=== PATIENT | male | born 1940 | race Hispanic/Latino ===

== ENCOUNTER 2018-08-25 09:57 | Inpatient (IN) | payer MEDICARE ==
[2018-08-25] VITALS (19 sets, daily range): BP systolic 97–117; BP diastolic 65–78
[~2018-08-25] VITALS: Ht 167.6 cm; Wt 90.3 kg
[2018-08-25 11:12] LABS: BASOPHILS % 0.2 % (0.0-1.0); EOSINOPHILS # (AUTO) 0.1 (0.0-0.4); EOSINOPHILS % 0.6 % (0.0-6.0); HEMATOCRIT 43.9 % (38.2-49.6); HEMOGLOBIN 15.1 g/dL (14.0-18.0); LYMPHOCYTES # (AUTO) 1.5 (1.0-3.2); LYMPHOCYTES % 14.3 % (18.0-39.1); MEAN CORPUSCULAR HGB CONC 34.4 g/dL (31-35); MEAN CORPUSCULAR VOLUME 90.1 fL (81-99); MONOCYTES # (AUTO) 0.9 (0.2-0.8); MONOCYTES % 9.3 % (4.4-11.3); NEUTROPHILS # (AUTO) 7.6 (2.1-6.9); NEUTROPHILS % 74.9 % (38.7-80.0); PLATELET COUNT 220 x10e3/uL (140-360); RED BLOOD COUNT 4.87 x10e6/uL (4.3-5.7); RED CELL DISTRIBUTION WIDTH 12.9 % (11.7-14.4)
--- NOTE | 2018-08-25 11:18 | Diagnostic Imaging Report ---
EXAMINATION: CHEST 2 VIEWS INDICATION: Hypoxia COMPARISON: None FINDINGS: TUBES and LINES: None. LUNGS: Patchy opacity is present in the left lower lobe and projecting over the lower spine on the lateral view. Right lung is clear. No evidence of pulmonary edema. PLEURA: No pleural effusion or pneumothorax. Slight nonspecific elevation of the right hemidiaphragm. HEART AND MEDIASTINUM: The cardiomediastinal silhouette is unremarkable. BONES AND SOFT TISSUES: No acute osseous lesion. Soft tissues are unremarkable. UPPER ABDOMEN: No free air under the diaphragm. IMPRESSION: Patchy opacity in the left lower lobe which could represent pneumonia or atelectasis in the appropriate clinical setting. Follow-up chest radiograph suggested in 6-8 weeks to assess for resolution. Signed by: Dr. Jorgito Smiht MD on 08/25/2018 11:15 AM
[2018-08-25 11:28] LABS: ALANINE AMINOTRANSFERASE 13 IU/L (0-55); ALBUMIN 3.9 g/dL (3.5-5.0); ALBUMIN/GLOBULIN RATIO 1.1 (0.8-2.0); ALKALINE PHOSPHATASE 93 IU/L (40-150); ANION GAP 13.3 mmol/L (8-16); BLOOD UREA NITROGEN 15 mg/dL (7-26); BUN/CREATININE RATIO 19 (6-25); CALCIUM 9.9 mg/dL (8.4-10.2); CARBON DIOXIDE 40 mmol/L (22-29); CHLORIDE 77 mmol/L (98-107); CREATININE, SERUM 0.78 mg/dL (0.72-1.25); EST GLOMERULAR FILTRATION RATE > 60 ML/MIN (60-); GLUCOSE 148 mg/dL (74-118); POTASSIUM 3.3 mmol/L (3.5-5.1); SODIUM 127 mmol/L (136-145)
[2018-08-25] MEDS ORDERED: ASPIRIN 81 MG CHEW TAB PO ONE (12:00)
[2018-08-25] MEDS ORDERED: AZITHROMYCIN 500MG/SOD CHL 0.9% 250ML BAG IV SCH (12:00)
--- OUTSIDE RECORDS SUMMARY | 2018-08-25 12:33 | XMS REPORT ---
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 Allergies, Adverse Reactions, Alerts This patient has no known allergies or adverse reactions. Medications This patient has no known medications. Results Test Description Test Time Test Comments Text Results Atomic Results Result Comments CHEST 2 VIEWS 2018-08-25 11:09:00 [facility] [address] [address] Patient Name: EITAN GLYNN MR #: [id number] : 1940 Age/Sex: 77/M Req #: [id number] Adm Physician: Ordered by: TIARA RANKIN MD Report #: [id number] Location: ER Room/Bed: Procedure: [id number] DX/CHEST 2 VIEWS Exam Date: Exam Time: REPORT STATUS: Signed EXAMINATION: CHEST 2 VIEWS INDICATION: Hypoxia COMPARISON: None FINDINGS: TUBES and LINES: None. LUNGS: Patchy opacity is present in the left lower lobe and projecting over the lower spine on the lateral view. Right lung is clear. No evidence of pulmonary edema. PLEURA: No pleural effusion or pneumothorax. Slight nonspecific elevation of the right hemidiaphragm. HEART AND MEDIASTINUM: The cardiomediastinal silhouette is unremarkable. BONES AND SOFT TISSUES: No acute osseous lesion. Soft tissues are unremarkable. UPPER ABDOMEN: No free air under the diaphragm. IMPRESSION: Patchy opacity in the left lower lobe which could represent pneumonia or atelectasis in the appropriate clinical setting. Follow-up chest radiograph suggested in 6-8 weeks to assess for resolution. Signed by: Dr. Genny Ray MD on 08/25/2018 11:15 AM Dictated By: GENNY RAY MD 1115 Transcribed By: MITZY on 08/25/18 1115 COPY TO: TIARA RANKIN MD
[2018-08-25] MEDS ORDERED: POTASSIUM CHLORIDE 20 MEQ TAB CR PO ONE (12:45)
[2018-08-25] MEDS: AZITHROMYCIN 500MG/NS 250 ML 250 ML IV SCH (13:10)
[2018-08-25] MEDS: CEFTRIAXONE SOD 1 GM VIAL IV SCH (13:10)
[2018-08-25 13:16] LABS: BILIRUBIN,URINE NEGATIVE (NEGATIVE); CLARITY,URINE CLEAR (CLEAR); COLOR,URINE YELLOW (YELLOW); KETONES,URINE NEGATIVE (NEGATIVE); LEUKOCYTE ESTERASE ,URINE NEGATIVE (NEGATIVE); NITRITE,URINE NEGATIVE (NEGATIVE); PROTEIN,URINE DIPSTICK 2+ (NEGATIVE); URINE UROBILINOGEN 1 mg/dL (0.2 - 1)
[2018-08-25 13:23] LABS: BACTERIA,URINE FEW /HPF; EPITHELIAL CELLS,URINE MODERATE /LPF; WBC,URINE (MAN) 0-5 /HPF (0-5)
[2018-08-25 13:24] LABS: MUCUS,URINE MODERATE (RARE)
[2018-08-25 13:45] LABS: CREATINE KINASE MB 1.5 ng/mL (0-5.0)
[2018-08-25] MEDS ORDERED: LISINOPRIL20 MG PO (13:52)
[2018-08-25] MEDS ORDERED: FINASTERIDE5 MG PO (13:52)
[2018-08-25] MEDS ORDERED: ATENOLOL-CHLOR1 EACH PO (13:52)
[2018-08-25] MEDS ORDERED: CRESTOR10 MG PO (13:52)
[2018-08-25] MEDS ORDERED: ALPRAZOLAM2 MG PO (13:52)
[2018-08-25] MEDS ORDERED: LEVOTHYROXINE150 MCG PO (13:52)
--- NOTE | 2018-08-25 13:59 | History and Physical ---
REFERRING PHYSICIAN: Dr. Solomon. HISTORY OF PRESENT ILLNESS: Patient is a 77-year-old man. He has a history of hypertension and thyroid problems. He also has a history of red irritated eyes intermittently over the years. Approximately 3 weeks ago, he went to see Dr. Kimball of ophthalmology. Both eyes were inflamed. Dr. Kimball noted an abrasion in the left eye, but no abrasion or foreign body on the right. He prescribed some drops, which did not help. The patient also reports some cough and congestion. His cough was productive of small amounts of phlegm. He is unsure if he had dyspnea. He occasionally has some chest pain. X-ray in the emergency department showed a small left lower lobe infiltrate suggestive of pneumonia. PAST MEDICAL HISTORY 1. Thyroid disease. 2. Hypertension. PAST SURGICAL HISTORY: Noncontributory. SOCIAL HISTORY: The patient is not a smoker or drinker. He sees Dr. Solomon as an outpatient. ALLERGIES: NO KNOWN DRUG ALLERGIES. REVIEW OF SYSTEMS: He has no fevers. He has no headache. He does have eye redness and discharge. He has no sore throat. There are no swollen glands. He does have some congestion and productive cough. He has occasional chest pain with inspiration. He has no abdominal pain. There is no nausea or vomiting. He does not have any leg swelling or pain. He denies any focal neurological problems. He denies any skin problems. PHYSICAL EXAMINATION GENERAL: The patient is afebrile. VITAL SIGNS: Stable. HEENT: Shows no increased swelling or erythema. The nasal mucosa is normal. The oropharynx is normal. LYMPHATIC: Shows no submandibular, cervical, or supraclavicular adenopathy. CARDIAC: Regular rate and rhythm with normal S1 and S2. RESPIRATORY: Auscultation of lungs reveals some rhonchi on the left side. ABDOMEN: Soft, nontender. There is no rebound or guarding. EXTREMITIES: Shows no leg edema or calf tenderness. There is no cyanosis or clubbing. SKIN: Shows no rashes. NEUROLOGIC: Shows no focal abnormalities. RADIOGRAPHIC DATA: Shows a left lower lobe infiltrate. IMPRESSION 1. Community-acquired left lower lobe pneumonia. 2. Bilateral conjunctivitis that is not responding to treatment. 3. Elevated prostate-specific antigen. 4. Thyroid disease. 5. Hypertension. PLAN 1. The patient will be done observed in the hospital with IV antibiotics. 2. Swallowing evaluation. 3. Ophthalmology consultation. 4. Continue current medications for blood pressure and thyroid disease. Job#: [id number] VAS
[2018-08-25] MEDS ORDERED: ETOMIDATE 2 MG/ML 10 ML INJ IV STA (14:31)
[2018-08-25] MEDS ORDERED: SUCCINYLCHOLINE CHLORIDE 20 MG/ML 10ML VIAL IV STA (14:31)
[2018-08-25] MEDS: MIDAZOLAM HCL 25 MG in SODIUM CHLORIDE 0.9% 50ML 45 ML IV PRN ×2 (14:49→23:04)
[2018-08-25] MEDS ORDERED: VANCOMYCIN 1GM/NS 250 ML 250 ML IV ONE (15:00)
[2018-08-25] MEDS ORDERED: FENTANYL CITRATE INJ 2,000 MCG in SODIUM CHLORIDE 0.9% 250ML 210 ML IV PRN (15:00)
[2018-08-25] MEDS ORDERED: SODIUM CHLORIDE 0.9% 1000ML 2,000 ML ONE (15:13)
[2018-08-25] MEDS ORDERED: SODIUM CHLORIDE 0.9% 1000ML 1,000 ML IV STA ×2 (15:20→15:30)
[2018-08-25 15:25] LABS: ABG HCO3 42 mmol/L (23-28); ABG PCO2 53 mmHg (41-51); ABG PO2 498 mmHg (80-105)
[2018-08-25] MEDS ORDERED: NOREPINEPHRINE 8 MG/D5W 250 ML 250 ML ONE (16:34)
[2018-08-25] MEDS ORDERED: HYDROCORTISONE SOD SUCCINATE 100 MG VIAL IV NR (16:43)
[2018-08-25] MEDS ORDERED: NOREPINEPHRINE INJ 4MG/4ML 8 MG in DEXTROSE 5% 250ML 250 ML IV SCH (16:45)
[2018-08-25] MEDS ORDERED: MIDAZOLAM HCL 2 MG/2 ML VIAL ONE (17:37)
[2018-08-25] MEDS ORDERED: SUCCINYLCHOLINE CHLORIDE 20 MG/ML 10ML VIAL ONE (17:37)
[2018-08-25] MEDS ORDERED: ETOMIDATE 2 MG/ML 10 ML INJ IV ONE (17:37)
[2018-08-25 17:41] LABS: FREE T4 (FREE THYROXINE) 1.13 ng/dL (0.9-1.8); THYROID STIMULATING HORMONE 1.821 uIU/mL (0.350-4.940)
--- NOTE | 2018-08-25 18:17 | Diagnostic Imaging Report ---
EXAM: CT Chest WITH contrast 08/25/2018 2:52 PM INDICATION: Pneumonia. Rule out PE. Sepsis. ^r/o PE COMPARISON: Chest radiograph 08/25/2018 TECHNIQUE: Chest was scanned utilizing a multidetector helical scanner from the lung apex through the level of the adrenal glands without administration of IV contrast. Coronal and sagittal reformations were obtained. PE protocol was performed. IV CONTRAST: 100 mL of Isovue-370 COMPLICATIONS: None RADIATION DOSE: Total DLP: 1372.7 mGy*cm Estimated effective dose: (DLP x 0.014 x size factor) mSv CTDIvol has been reviewed. It is below the limits set by the Radiation Protocol Committee (RPC). Dose modulation, iterative reconstruction, and/or weight based adjustment of the mA/kV was utilized to reduce the radiation dose to as low as reasonably achievable. FINDINGS: LINES/ TUBES: Endotracheal tube tip 3.1 cm above the carter. Nasogastric/orogastric tube tip in the gastric body. Right IJ venous catheter tip in the lower SVC with subcutaneous soft tissue stranding/hematoma at the insertion site. LUNGS AND AIRWAYS: No pulmonary embolus to the level of the segmental pulmonary arteries. Right upper lobe 3 mm calcified granuloma (series 3 image 60). Left lower lobe opacities likely representing atelectasis. Secretions within the trachea. PLEURA: The pleural spaces are clear. HEART AND MEDIASTINUM: The thyroid gland is normal. No mediastinal, hilar or axillary lymphadenopathy. The heart is normal in size.. There is no pericardial effusion. Diffuse 3 vessel coronary artery calcifications. Main pulmonary artery measures 2.9 cm. Ascending aorta measures 3.5 cm. UPPER ABDOMEN: Please see same-day CT abdomen and pelvis. BONES: There are degenerative changes in the thoracic spine. SOFT TISSUES: Right chest wall 3 cm sebaceous cyst. IMPRESSION: No evidence of pulmonary embolism to the segmental pulmonary arteries. Previously noted left lower lobe opacity likely represents atelectasis. Signed by: DR. Severino Steward MD on 08/25/2018 6:14 PM
--- NOTE | 2018-08-25 18:32 | Diagnostic Imaging Report ---
EXAM: CT Abdomen and Pelvis WITH contrast INDICATION: PE, pneumonia, sepsis. ^SEPSIS ^Y COMPARISON: None. TECHNIQUE: Abdomen and pelvis were scanned utilizing a multidetector helical scanner from the lung base to the pubic symphysis after administration of IV contrast. Coronal and sagittal reformations were obtained. Routine protocol was performed. Scan was performed during portal venous phase. IV CONTRAST: 100 mL of Isovue-370 ORAL CONTRAST: Water COMPLICATIONS: None RADIATION DOSE: Total DLP: 1372.7 mGy*cm Estimated effective dose: (DLP x 0.015 x size factor) mSv CTDIvol has been reviewed. It is below the limits set by the Radiation Protocol Committee (RPC). Dose modulation, iterative reconstruction, and/or weight based adjustment of the mA/kV was utilized to reduce the radiation dose to as low as reasonably achievable. FINDINGS: LINES and TUBES: Nasogastric/orogastric tube tip in the gastric body. Ramirez catheter within the collapsed bladder. LOWER THORAX: Please see same-day chest CT. HEPATOBILIARY: Punctate 0.4 and 0.5 cm hyperattenuating foci in segment VII (series 5 image 23). No biliary ductal dilation. GALLBLADDER: Cholelithiasis. No wall thickening. SPLEEN: No splenomegaly. PANCREAS: No focal masses or ductal dilatation. ADRENALS: No adrenal nodules KIDNEYS/URETERS: Multifocal scarring in both kidneys. Kidneys enhance symmetrically. No hydronephrosis. Heterogeneously hyperattenuating 3.2 cm mass in the superior pole of the right kidney. Additional low attenuating lesions, some of which likely represent cysts, others of which are indeterminant. No stones. GI TRACT: No abnormal distention, wall thickening, or evidence of bowel obstruction. High attenuation within the stomach may be related to ingested contents. There are diverticula within the colon without evidence of diverticulitis. Appendix is normal. PELVIC ORGANS/BLADDER: Prostate is enlarged measuring 5.6 cm in transverse dimension. Collapsed bladder, limiting evaluation. LYMPH NODES: No lymphadenopathy. Prominent but subcentimeter 0.7 cm retrocaval node. VESSELS: There is moderate atherosclerotic disease in the aorta and major arterial branches. PERITONEUM / RETROPERITONEUM: No free air or fluid. BONES: There are degenerative changes in the lumbar spine. Hemangioma in the T11 vertebral body. SOFT TISSUES: Fat-containing inguinal hernias. IMPRESSION: 1. No acute abnormalities in the abdomen and pelvis. 2. Right renal 3.2 cm mass compatible with renal cell carcinoma until proven otherwise. 3. Additional low attenuating lesions kidneys may represent hemorrhagic or proteinaceous cysts but are indeterminate. 4. Hyperattenuating lesions in the liver may represent flash filling hemangiomas but are indeterminate in the setting of a hypervascular primary tumor such as renal cell carcinoma. 5. Recommend further evaluation with nonemergent abdominal MRI without and with contrast. Signed by: DR. Severino Steward MD on 08/25/2018 6:29 PM
[2018-08-25] MEDS: SODIUM CHLORIDE 0.9% 1000ML 1,000 ML IV SCH (18:54)
[2018-08-25 19:27] LABS: CREATINE KINASE MB 3.7 ng/mL (0-5.0)
[2018-08-25] MEDS ORDERED: IOPAMIDOL 370 MG/ML 200 ML INFUS..BTL INJ ONE (22:31)
[2018-08-25] MEDS ORDERED: SODIUM CHLORIDE 0.9% 50ML 50 ML ONE (22:31)
[2018-08-25] MEDS: HYDROCORTISONE SOD SUCCINATE 100 MG VIAL IV SCH (22:57)
[2018-08-26] VITALS (63 sets, daily range): BP systolic 91–156; BP diastolic 55–77
[2018-08-26] MEDS: SODIUM CHLORIDE 0.9% 1000ML 1,000 ML IV SCH (04:38)
[2018-08-26 04:59] LABS: CREATINE KINASE MB 1.4 ng/mL (0-5.0)
[2018-08-26] MEDS: HYDROCORTISONE SOD SUCCINATE 100 MG VIAL IV SCH ×3 (06:07→21:59)
[2018-08-26 07:35] LABS: BASOPHILS % 0.1 % (0.0-1.0); HEMATOCRIT 36.9 % (38.2-49.6); HEMOGLOBIN 13.3 g/dL (14.0-18.0); LYMPHOCYTES # (AUTO) 1.2 (1.0-3.2); LYMPHOCYTES % 7.9 % (18.0-39.1); MEAN CORPUSCULAR HEMOGLOBIN 31.3 pg (28-32); MEAN CORPUSCULAR VOLUME 86.8 fL (81-99); MONOCYTES # (AUTO) 1.2 (0.2-0.8); MONOCYTES % 7.8 % (4.4-11.3); NEUTROPHILS # (AUTO) 12.5 (2.1-6.9); NEUTROPHILS % 83.3 % (38.7-80.0); PLATELET COUNT 237 x10e3/uL (140-360); RED BLOOD COUNT 4.25 x10e6/uL (4.3-5.7); RED CELL DISTRIBUTION WIDTH 12.8 % (11.7-14.4)
[2018-08-26 07:38] LABS: ALANINE AMINOTRANSFERASE 13 IU/L (0-55); ALBUMIN 2.9 g/dL (3.5-5.0); ALBUMIN/GLOBULIN RATIO 1.2 (0.8-2.0); ALKALINE PHOSPHATASE 70 IU/L (40-150); ANION GAP 20.9 mmol/L (8-16); BLOOD UREA NITROGEN 14 mg/dL (7-26); BUN/CREATININE RATIO 20 (6-25); CALCIUM 8.6 mg/dL (8.4-10.2); CARBON DIOXIDE 23 mmol/L (22-29); CHLORIDE 93 mmol/L (98-107); CREATININE, SERUM 0.69 mg/dL (0.72-1.25); EST GLOMERULAR FILTRATION RATE > 60 ML/MIN (60-); GLUCOSE 181 mg/dL (74-118); SODIUM 134 mmol/L (136-145)
[2018-08-26 07:40] LABS: POTASSIUM 2.9 mmol/L (3.5-5.1)
[2018-08-26] MEDS ORDERED: POTASSIUM CHLORIDE 20MEQ/100ML 100 ML IV ONE (09:00)
[2018-08-26 09:29] LABS: ABG PH 7.36 (7.31-7.41)
[2018-08-26 09:30] LABS: ABG HCO3 30 mmol/L (23-28); ABG PCO2 54 mmHg (41-51); ABG PO2 106 mmHg (80-105)
[2018-08-26] MEDS: CEFTRIAXONE SOD 1 GM VIAL IV SCH (12:34)
[2018-08-26] MEDS: AZITHROMYCIN 500MG/NS 250 ML 250 ML IV SCH (12:34)
--- NOTE | 2018-08-26 13:31 | Progress Note ---
DATE: August 26, 2018 PULMONARY/CRITICAL CARE PROGRESS NOTE SUBJECTIVE: The patient became suddenly hypotensive in the emergency department yesterday. The emergency department physician intubated the patient and placed a central line. He did not respond to 2 liters of fluid and required Levophed. He was subsequently given hydrocortisone and his blood pressure dramatically improved, raising a concern for adrenal insufficiency. A subsequent CT scan of the abdomen and pelvis showed a 3.2 cm mass in the right kidney compatible with renal cell carcinoma. He also had some hypoattenuating lesions in the liver. Patient was placed on a spontaneous breathing trial this morning and is tolerating pressure support and CPAP well. The tidal volumes of 400 to 450 mL with respiratory rate of 12 or 13. PHYSICAL EXAMINATION VITAL SIGNS: The blood pressures are 140/72 and patient is afebrile. The pulse is 67. Respiratory rate is 18. HEENT: Shows no facial swelling or erythema. The oropharynx is normal. There is an oral endotracheal tube in place. There is a right IJ line. The site looks clean. CARDIAC: Reveals regular rate and rhythm with normal S1 and S2. There are no murmurs or rubs. RESPIRATORY: Auscultation of the lungs reveals decreased breath sounds at the base. There is no wheezing. ABDOMEN: Soft and nontender. There is no rebound or guarding. EXTREMITIES: Show no leg edema or calf tenderness. There is no cyanosis or clubbing. NEUROLOGICAL: Shows no focal abnormalities. LABORATORY DATA: The sodium is 134 and the potassium is 2.9. The BUN to creatinine ratio is 14/0.7. The total bilirubin has increased to 2.4. The albumin is 2.9. The white blood cell count is 15 and hemoglobin is 13.3. The platelet count is 237. IMPRESSION 1. Community-acquired pneumonia. 2. Hypotension, possibly secondary to adrenal insufficiency. 3. Metabolic alkalosis. 4. Hyponatremia. 5. Hypokalemia. 6. A 3.2 cm renal mass consistent with renal cell carcinoma. 7. Liver abnormalities on CT scan of unclear etiology. 8. Elevated total bilirubin. PLAN 1. Proceed with extubation. 2. Continue hydrocortisone q.8; an endocrinology evaluation is pending to rule out adrenal insufficiency. 3. Urology consultation and oncology consultation for the renal mass. 4. Continue current antibiotics. 5. We will correct sodium and potassium. 6. Check coagulation parameters. 7. Case discussed with nursing, respiratory and family. 8. Greater than 35 minutes in direct critical care time. Job#: [id number] MAJ CHAPMAN
[2018-08-26 14:16] LABS: FREE T4 (FREE THYROXINE) 1.13 ng/dL (0.9-1.8); THYROID STIMULATING HORMONE 0.755 uIU/mL (0.350-4.940)
--- NOTE | 2018-08-26 22:33 | Consultation ---
DATE OF CONSULTATION: August 25, 2018 ENDOCRINE CONSULTATION Patient of Dr. Viramontes. Thank you very much for referring this patient. HISTORY OF PRESENT ILLNESS: This is a 77-year-old gentleman who is referred to me for evaluation of hypotension and possible hypocortisolism. Patient came to the hospital with history of hypotension. He was seen in the emergency room. His blood pressure was low. He was intubated, put on the pressors and the IV hydrocortisone. His blood pressure did improve with that. Subsequently, his CT scan showed a 3.7 cm renal mass and is being evaluated for renal cell cancer. His other medical problems include history of hypothyroidism. He has also some obstructive pulmonary disease and possible pneumonia. Patient has history of hypothyroidism. He has also a history of conjunctivitis. There is no history of the pituitary tumor in the past. PHYSICAL EXAMINATION GENERAL: The patient is alert, awake. VITAL SIGNS: His heart rate is around 70, blood pressure presently is 120/70 mmHg. HEENT: Essentially unremarkable. Thyroid is palpable. Clinically he looks near euthyroid. CHEST: Bilateral vesicular breathing. He has got bilateral bronchospasm and basilar rales. CARDIOVASCULAR: First and 2nd heart sounds. There is no 3rd or 4th heart sound. Ejection sound grade 2/6. CLINICAL IMPRESSION 1. Rule out hypocortisolism. 2. Hypotension and significant improvement after giving hydrocortisone. 3. Renal cell mass, rule out renal cell cancer. 4. Obstructive pulmonary disease. 5. Pneumonia. PLAN: The plan at this time is to do a serum ACTH, cut down the IV hydrocortisone, and we will also plan do a Cortrosyn test on follow. Thanks for referring this patient. I will be following this patient with you. Job#: [id number] HOWIE
--- NOTE | 2018-08-26 23:29 | Consultation ---
DATE OF CONSULTATION: August 26, 2018 REQUESTING PHYSICIAN: Dr. Sudheer Viramontes SERVICE: Hematology/oncology. REASON FOR CONSULTATION: Evaluation and management of the patient with renal mass. HISTORY OF PRESENTING ILLNESS: Mr. Liu is a 77-year-old gentleman with known history of hypertension and thyroid disease who is presented to the emergency department due to cough and congestion. He underwent workup revealing left lower lobe pneumonia. He was intubated due to respiratory failure. He underwent workup including CT of the abdomen and pelvis revealing right-sided 3.2 cm mass in the kidney compatible with renal cell carcinoma. CT also demonstrated hyperattenuating lesion in the liver suspicious of feeling hemangioma versus hypervascular primary renal cell carcinoma. Hematology-oncology has been consulted to assist with management. Presently, patient is lying comfortably, not in acute distress. He has been extubated. He is alert, awake, and able to recall events. PAST MEDICAL HISTORY 1. Thyroid disease. 2. Hypertension. PAST SURGICAL HISTORY: Questionable history of renal mass biopsy. SOCIAL HISTORY: The patient is not a smoker or drinker. No illicit drug use. ALLERGIES: NO KNOWN DRUG ALLERGIES. CURRENT MEDICATIONS: Reviewed and as per electronic medical record. REVIEW OF SYSTEMS: A 14-point review of systems negative except as mentioned in history of presenting illness as well as fatigue and tiredness. PHYSICAL EXAMINATION VITAL SIGNS: Reviewed and as per electronic medical record. HEENT: PERRLA. Intact eye movement. Head atraumatic, normocephalic. NECK: Supple. CVS: S1, S2 audible. RESPIRATORY: Decreased bilateral air entry. ABDOMEN: Soft. Positive bowel sounds. EXTREMITIES: Negative edema. NEURO: Patient is alert, awake. LABORATORY DATA: White blood cell count of 15.0, hemoglobin 13.3, hematocrit 36.9, platelets 237. BUN 14, creatinine 0.6. ASSESSMENT AND PLAN: Mr. Liu is a very pleasant 77-year-old gentleman with known history of hypertension and thyroid disorder, admitted through emergency department due to left lower lobe pneumonia leading to respiratory insufficiency, subsequently required ICU admission. He underwent workup including CT scan of the abdomen and pelvis revealing 3.2 cm right renal mass suspicious for renal cell carcinoma, subsequently hematology-oncology has been consulted. I have reviewed the record and discussed in length with the patient about his current disease status and importance of further workup. Overall, mass appeared to be malignant. Patient also has lesion in the liver which appeared to be more of hemangioma, though metastatic disease cannot be ruled out completely. Upon further questioning, patient stated that he has had this lesion for some time and has had biopsy in the past which was negative. Patient appeared to be alert and awake, though I am not sure how much history is reliable. I will discuss the case with his who may know further detail about history of no renal mass. Due to liver lesion, I think outpatient workup will be warranted, specifically the PET/CT scan of the body. Urology consultation will be recommended. Thank you, Dr. Viramontes, for the consult. I will continue to be available. Please call with questions. Job#: [id number] VAS
[2018-08-27] VITALS (78 sets, daily range): BP systolic 51–190; BP diastolic 37–132
[2018-08-27 04:40] LABS: BASOPHILS % 0.1 % (0.0-1.0); HEMATOCRIT 37.2 % (38.2-49.6); HEMOGLOBIN 12.8 g/dL (14.0-18.0); LYMPHOCYTES # (AUTO) 0.8 (1.0-3.2); LYMPHOCYTES % 7.5 % (18.0-39.1); MEAN CORPUSCULAR HEMOGLOBIN 31.2 pg (28-32); MEAN CORPUSCULAR HGB CONC 34.4 g/dL (31-35); MEAN CORPUSCULAR VOLUME 90.7 fL (81-99); NEUTROPHILS # (AUTO) 9.3 (2.1-6.9); NEUTROPHILS % 82.9 % (38.7-80.0); PLATELET COUNT 162 x10e3/uL (140-360); RED CELL DISTRIBUTION WIDTH 13.2 % (11.7-14.4)
[2018-08-27 04:52] LABS: INR 0.94; PARTIAL THROMBOPLASTIN TIME 30.3 seconds (23.8-35.5); PROTHROMBIN TIME 13.4 seconds (11.9-14.5)
[2018-08-27 05:04] LABS: ALANINE AMINOTRANSFERASE 11 IU/L (0-55); ALBUMIN 2.8 g/dL (3.5-5.0); ALKALINE PHOSPHATASE 62 IU/L (40-150); BLOOD UREA NITROGEN 16 mg/dL (7-26); BUN/CREATININE RATIO 22 (6-25); CALCIUM 8.7 mg/dL (8.4-10.2); CARBON DIOXIDE 32 mmol/L (22-29); CHLORIDE 95 mmol/L (98-107); CREATININE, SERUM 0.73 mg/dL (0.72-1.25); EST GLOMERULAR FILTRATION RATE > 60 ML/MIN (60-); GLUCOSE 134 mg/dL (74-118); SODIUM 137 mmol/L (136-145)
[2018-08-27] MEDS: HYDROCORTISONE SOD SUCCINATE 100 MG VIAL IV SCH ×3 (05:30→21:47)
[2018-08-27] MEDS ORDERED: POTASSIUM CHLORIDE 20 MEQ TAB CR PO STA (07:35)
[2018-08-27] MEDS: LEVOTHYROXINE SODIUM 75 MCG TAB PO SCH (08:24)
[2018-08-27] MEDS: CHLORTHALIDONE 25 MG TAB PO SCH (08:25)
[2018-08-27] MEDS: ATENOLOL 100 MG TAB PO SCH ×2 (08:25→16:28)
[2018-08-27] MEDS: FINASTERIDE 5 MG TAB PO SCH (08:26)
[2018-08-27] MEDS: LISINOPRIL 20 MG TAB PO SCH (08:26)
[2018-08-27] MEDS: SIMVASTATIN 40 MG TAB PO SCH (08:26)
[2018-08-27] MEDS ORDERED: NON-FORMULARY MEDICATION (Atenolol/Chlorthalidone (Atenolol-Chlorthalidone 100-25) 1 TAB) PO SCH (09:00)
[2018-08-27] MEDS ORDERED: NON-FORMULARY MEDICATION (Levothyroxine Sodium 150 MCG) PO SCH (09:00)
--- NOTE | 2018-08-27 09:34 | Consultation ---
DATE OF CONSULTATION: August 27, 2018 CONSULTATION CALLED BY: Dr. Viramontes. CHIEF UROLOGIC COMPLAINT/REASON FOR CONSULTATION: Renal mass. HISTORY OF PRESENT ILLNESS: Jose Liu is a very pleasant 77-year-old male patient of mine who has seen both myself and Dr. Ackerman in the past. The patient has a long history of elevated PSA and renal mass. Currently denied dysuria. Denied hematuria. Denied any difficulty urinating. PAST MEDICAL HISTORY: Hypertension, hyperthyroidism, renal mass status post biopsy. MEDICATIONS: Please see MAR. ALLERGIES: VANCOMYCIN, INFLUENZA VACCINE, PENICILLIN. SOCIAL HISTORY: Positive smoker. FAMILY HISTORY: Denied urologic stones or malignancies. REVIEW OF SYSTEMS: Noncontributory other than problems as mentioned above for 12 organ systems. PHYSICAL EXAMINATION GENERAL: Elderly male in no acute distress. VITALS: Temperature 97.1, pulse 67, respirations 18, blood pressure 140/72. HEENT: Sclerae are anicteric. NECK: Supple. BACK: Without costovertebral tenderness bilaterally. ABDOMEN: Soft and nontender. Nondistended. No palpable masses. No palpable hernias. No palpable inguinal lymphadenopathy. : Normal male external genitalia. EXTREMITIES: No edema. Moves all 4 extremities. PSYCH: Mood is appropriate. SKIN: Intact. Normal color. PERTINENT LABORATORY DATA: CT scan revealing gallstones of right upper pole 3.2 cm size, multiple renal cysts. BPH 5.6 cm in diameter. Multifocal liver masses. Sodium 134, potassium 3.9, chloride 53, bicarb 23. BUN 14, creatinine 0.69. Glucose 181. Hemoglobin 13, hematocrit 36, platelet count 237,000, white cell count 15,000. Urinalysis 0 to 5 whites, 2+ protein. IMPRESSION 1. Proteinuria. 2. Hypokalemia. 3. Leukocytosis. 4. Renal cysts. 5. Renal mass. 6. Benign prostatic hypertrophy. 7. Elevated PSA. PLAN: The patient has renal mass for quite some time. He has been following, on surveillance. We will obtain detailed office records for exact pathology, and previous biopsy. He has seen both myself and Dr. Ackerman in the past and was happy to see me in the room. We will follow along with you. Job#: [id number] LEWIS: cc:DR. MAMTA Ortiz DR. GARCIA
[2018-08-27] MEDS: AZITHROMYCIN 500MG/NS 250 ML 250 ML IV SCH (13:43)
[2018-08-27] MEDS: CEFTRIAXONE SOD 1 GM VIAL IV SCH (13:43)
[2018-08-27] MEDS ORDERED: SODIUM CHLORIDE 0.9% 1000ML 1,000 ML ONE (14:43)
[2018-08-27] MEDS: PROPOFOL IV EMULSION 10MG/ML 100 ML IV PRN ×2 (14:45→21:11)
[2018-08-27] MEDS ORDERED: PROPOFOL IV EMULSION 10MG/ML 100 ML ONE (14:58)
--- NOTE | 2018-08-27 16:29 | Diagnostic Imaging Report ---
EXAMINATION: CHEST SINGLE (PORTABLE) INDICATION: Intubation. Pneumonia. COMPARISON: CT abdomen and pelvis 08/25/2018. Chest x-ray 08/25/2018. FINDINGS: AP view TUBES and LINES: Interval placement of endotracheal tube. The tip is not well visualized. The assumed tip is 8.1 cm above the carter. Right IJ central line with tip in mid SVC. LUNGS: Lungs are well inflated. There are bibasilar atelectasis and/or consolidation. Mild central pulmonary venous congestion. PLEURA: New small left pleural effusion. HEART AND MEDIASTINUM: The cardiomediastinal silhouette is unremarkable. BONES AND SOFT TISSUES: No acute osseous lesion. Soft tissues are unremarkable. UPPER ABDOMEN: No free air under the diaphragm. IMPRESSION: 1. Suboptimal x-ray. 2. Tip of the endotracheal tube is not well seen secondary to positioning and x-ray penetration. The presumed tip is 8.0 cm above the carter. 3. New small left pleural effusion. 4. New bibasilar atelectasis/consolidations. Signed by: Dr. Tam Ortez M.D. on 08/27/2018 4:26 PM
[2018-08-27 17:27] LABS: ABG HCO3 30 mmol/L (23-28); ABG PCO2 36 mmHg (41-51); ABG PH 7.54 (7.31-7.41); ABG PO2 74 mmHg (80-105)
--- NOTE | 2018-08-27 17:44 | Diagnostic Imaging Report ---
History: Rapid response Comparison studies:None Technique: Axial images were obtained from the skull base to the vertex with and without. Coronal and sagittal images reconstructed from the axial data. Intravenous contrast: Yes Dose modulation, iterative reconstruction, and/or weight based adjustment of the mA/kV was utilized to reduce the radiation dose to as low as reasonably achievable. Findings: Scalp/skull: No abnormalities. Extra-axial spaces: No masses. No fluid collections. Brain sulci: Mildly prominent. Ventricles: Mild compensatory dilatation. No hydrocephalus. Parenchyma: Scattered small hypodensities in the supratentorial white matter are small vessel ischemic changes. No masses, hemorrhage, acute or chronic cortical vascular insults. No abnormal enhancement Sellar/suprasellar region: No abnormalities. Craniocervical junction: Patent foramen magnum. No Chiari one malformation. Incidental findings: Atherosclerotic calcifications in the carotid siphons, basilar and vertebral arteries . Dolichoectasia of the basilar artery Impression: No acute abnormalities. Chronic findings: 1. Mild generalized volume loss. 2. Mild supratentorial white matter small vessel ischemic changes. 3. 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 Signed by: DR Dwain Jang M.D. on 08/27/2018 5:40 PM
[2018-08-27] MEDS ORDERED: SODIUM CHLORIDE 0.9% 50ML 50 ML ONE (17:50)
[2018-08-27] MEDS ORDERED: IOPAMIDOL 370 MG/ML 200 ML INFUS..BTL INJ ONE (17:50)
--- NOTE | 2018-08-27 17:50 | Diagnostic Imaging Report ---
EXAMINATION: CHEST SINGLE (PORTABLE) INDICATION: ^ETT advancement COMPARISON: None FINDINGS: AP view TUBES and LINES: The tip of the endotracheal tube is 4.1 cm above the carter. Right IJ central line with tip at mid to lower SVC. LUNGS: Lungs are moderately inflated. There are bibasilar atelectasis and/or consolidation. Mild central pulmonary venous congestion. PLEURA: Small left pleural effusion. HEART AND MEDIASTINUM: The cardiomediastinal silhouette is unremarkable. BONES AND SOFT TISSUES: No acute osseous lesion. Soft tissues are unremarkable. UPPER ABDOMEN: No free air under the diaphragm. IMPRESSION: Tip of the endotracheal tube is 4.1 cm above the carter. Signed by: Dr. Tam Ortez M.D. on 08/27/2018 5:47 PM
[2018-08-27] MEDS ORDERED: DEXMEDETOMIDINE HCL 200 MCG in SODIUM CHLORIDE 0.9% 50ML 48 ML IV PRN (18:00)
--- NOTE | 2018-08-27 19:48 | Progress Note ---
DATE: August 27, 2018 PULMONARY/CRITICAL CARE PROGRESS NOTE SUBJECTIVE: Rounded this morning around 8 a.m.. The patient was awake, alert, and feeling better. The staff was making arrangements to move him out of the intensive care unit. At approximately 02:30, the nurse went in and noticed he was diaphoretic and desaturating. Rapid response was called. He was reintubated and received a liter of intravenous fluids. OBJECTIVE VITAL SIGNS: The patient is now afebrile. He is normotensive again after receiving the liter of fluids. GENERAL: He is on the assist control mode of ventilation. He has a right IJ line in place. This site looks clean. CARDIAC: Reveals regular rate and rhythm with a normal S1 and S2. There are no murmurs or rubs. LUNGS: Auscultation of the lungs reveals clear breath sounds bilaterally. There is no wheezing. ABDOMEN: Soft and nontender. There is no rebound or guarding. EXTREMITIES: Shows no leg edema or calf tenderness. There is no cyanosis or clubbing. IMPRESSION 1. Respiratory failure requiring emergent intubation. 2. Renal cell carcinoma. 3. Pneumonia. 4. Possible adrenal insufficiency. 5. Benign prostatic hypertrophy. 6. Hypothyroidism. 7. Hypertension. PLAN 1. The patient will be continued on an assist control mode of ventilation. Patient will go for a CT scan of the head with and without contrast. 2. Repeat ABG. 3. Continue current antibiotics. 4. Continue endocrinology workup. 5. Evaluation for renal cell carcinoma is still in progress. 6. Greater than 35 minutes in direct critical care time during 2 separate visits. 7. Case discussed with nursing, respiratory, and ER doctor. Job#: [id number] LAKEISHA CHAPMAN
[2018-08-28] VITALS (113 sets, daily range): BP systolic 51–191; BP diastolic 39–89
[2018-08-28] MEDS: PROPOFOL IV EMULSION 10MG/ML 100 ML IV PRN ×2 (03:17→23:11)
[2018-08-28 04:04] LABS: BASOPHILS % 0.1 % (0.0-1.0); HEMOGLOBIN 14.3 g/dL (14.0-18.0); LYMPHOCYTES # (AUTO) 1.2 (1.0-3.2); LYMPHOCYTES % 7.2 % (18.0-39.1); MEAN CORPUSCULAR HEMOGLOBIN 31.3 pg (28-32); MEAN CORPUSCULAR VOLUME 91.9 fL (81-99); MONOCYTES # (AUTO) 1.9 (0.2-0.8); MONOCYTES % 12.2 % (4.4-11.3); NEUTROPHILS # (AUTO) 12.7 (2.1-6.9); NEUTROPHILS % 79.9 % (38.7-80.0); PLATELET COUNT 155 x10e3/uL (140-360); RED BLOOD COUNT 4.57 x10e6/uL (4.3-5.7); RED CELL DISTRIBUTION WIDTH 13.2 % (11.7-14.4)
[2018-08-28 04:28] LABS: ALANINE AMINOTRANSFERASE 46 IU/L (0-55); ALBUMIN 2.9 g/dL (3.5-5.0); ALBUMIN/GLOBULIN RATIO 1.1 (0.8-2.0); ALKALINE PHOSPHATASE 68 IU/L (40-150); BLOOD UREA NITROGEN 20 mg/dL (7-26); BUN/CREATININE RATIO 19 (6-25); CALCIUM 8.9 mg/dL (8.4-10.2); CARBON DIOXIDE 26 mmol/L (22-29); CHLORIDE 99 mmol/L (98-107); CREATININE, SERUM 1.06 mg/dL (0.72-1.25); EST GLOMERULAR FILTRATION RATE > 60 ML/MIN (60-); GLUCOSE 133 mg/dL (74-118); SODIUM 140 mmol/L (136-145)
[2018-08-28] MEDS: HYDROCORTISONE SOD SUCCINATE 100 MG VIAL IV SCH ×2 (05:36→20:57)
[2018-08-28] MEDS: LEVOTHYROXINE SODIUM 75 MCG TAB PO SCH (05:36)
--- NOTE | 2018-08-28 06:47 | Diagnostic Imaging Report ---
EXAMINATION: CHEST SINGLE (PORTABLE) INDICATION: Intubation COMPARISON: 08/27/2018 FINDINGS: TUBES and LINES: Endotracheal tube and right IJ central line catheter are in stable LUNGS: Lungs are not well inflated. Persistent left lower lobe atelectasis the right lung is clear. PLEURA: Small left pleural effusion is suspected HEART AND MEDIASTINUM: The cardiomediastinal silhouette is unremarkable. BONES AND SOFT TISSUES: No acute osseous lesion. Soft tissues are unremarkable. UPPER ABDOMEN: No free air under the diaphragm. IMPRESSION: 1. Stable chest with evidence of left lower lobe airspace disease and pleural effusion. 2. Endotracheal and right IJ central line catheter are stable Signed by: Dr. Gibran Castillo M.D. on 08/28/2018 6:43 AM
[2018-08-28] MEDS: ATENOLOL 100 MG TAB PO SCH ×2 (09:00→17:00)
[2018-08-28] MEDS: LISINOPRIL 20 MG TAB PO SCH (09:00)
[2018-08-28] MEDS: CHLORTHALIDONE 25 MG TAB PO SCH (09:00)
[2018-08-28] MEDS: FINASTERIDE 5 MG TAB PO SCH (09:00)
[2018-08-28] MEDS: SIMVASTATIN 40 MG TAB PO SCH (09:00)
[2018-08-28 10:45] LABS: ABG HCO3 31 mmol/L (23-28); ABG PCO2 41 mmHg (41-51); ABG PH 7.49 (7.31-7.41); ABG PO2 109 mmHg (80-105)
[2018-08-28] MEDS ORDERED: LORAZEPAM INJ 2 MG/ML VIAL IV NR (11:45)
[2018-08-28] MEDS: CEFTRIAXONE SOD 1 GM VIAL IV SCH (11:59)
[2018-08-28] MEDS: AZITHROMYCIN 500MG/NS 250 ML 250 ML IV SCH (11:59)
[2018-08-28] MEDS ORDERED: NOREPINEPHRINE 8 MG/D5W 250 ML 250 ML ONE (12:41)
[2018-08-28] MEDS ORDERED: SODIUM CHLORIDE 0.9% 1000ML 1,000 ML ONE (12:41)
[2018-08-28] MEDS ORDERED: NOREPINEPHRINE INJ 4MG/4ML 8 MG in DEXTROSE 5% 250ML 250 ML IV PRN (12:45)
[2018-08-28] MEDS: SODIUM CHLORIDE 0.9% 1000ML 1,000 ML IV SCH ×2 (12:45→22:07)
[2018-08-28] MEDS: PANTOPRAZOLE 40 MG 10ML VIAL IV SCH (12:45)
[2018-08-28] MEDS ORDERED: SODIUM CHLORIDE 0.9% 500ML 500 ML ONE (13:30)
[2018-08-28] MEDS ORDERED: LIDOCAINE HCL 1% LOCAL INJ 20 ML VIAL ONE (13:30)
[2018-08-28] MEDS ORDERED: IOPAMIDOL 300MG/ML 50ML INFUS..BTL IV ONE (13:45)
--- NOTE | 2018-08-28 14:28 | Diagnostic Imaging Report ---
PROCEDURE:ULTRASOUND GUIDANCE FOR PROCEDURE INDICATIONS:Urinary retention COMPARISON:[facility], CT, CT ABDOMEN/PELVIS W, 08/25/2018, 17:26. MEDICATION: Lidocaine 1% EBL: Less than 5 cc FINDINGS: Informed consent was obtained. Ultrasound was used to identify the location of the distended urinary bladder. Bladder measures 17 x 7.7 x 11.5 cm. Estimated volume is 787 cc. Puncture of the bladder with an 18 gauge needle was accomplished with ultrasound guidance. CONCLUSION:Ultrasound guidance for placement of a suprapubic urinary bladder catheter. Soham Hurley D.O. Dictated by: Soham Hurley D.O. on 08/28/2018 at 14:36 Electronically approved by: Soham Hurley D.O. on 08/28/2018 at 14:36
[2018-08-28] MEDS ORDERED: POTASSIUM CHLORIDE 20MEQ/100ML 100 ML IV ONE (15:30)
[2018-08-28] MEDS ORDERED: SODIUM CHLORIDE 0.9% 1000ML 500 ML IV ONE (15:30)
--- NOTE | 2018-08-28 18:31 | Diagnostic Imaging Report ---
EXAM: Abdomen 1 Views INDICATION: ^NGT placement COMPARISON: None FINDINGS: Suboptimal examination. NG/OG tube is faintly seen but the tip appears to overlying the lower esophagus. The remaining abdomen is nondiagnostic. IMPRESSION: Possible NG/OG tube tip overlying the lower esophagus. Recommend repeat KUB. Signed by: Dr. May Ram M.D. on 08/28/2018 6:28 PM
--- NOTE | 2018-08-28 19:43 | Diagnostic Imaging Report ---
EXAM: ABDOMEN-1VIEW (KUB) DATE: 08/28/2018 7:12 PM Time stamp on exam: 1925 hours INDICATION: Tube advancement COMPARISON: 08/28/2018 at 1721 hours FINDINGS: LINES/TUBES: NG tube is again visualized with tip within the esophagus not visualized on examination. There is a loop of NG tube which is noted within the stomach. Repositioning is recommended. BOWEL PATTERN: No evidence for obstruction. SOFT TISSUES: Contrast is visualized in the renal parenchyma and bilateral renal collecting systems LUNG BASES: Not included BONES: No acute findings. IMPRESSION: 1. NG tube remains in the gastroesophageal junction with tip above the films limits most likely in the esophagus. A loop of NG tube is in the stomach fundus. Repositioning is recommended Signed by: Dr. Gibran Castillo M.D. on 08/28/2018 7:40 PM
[2018-08-29] VITALS (50 sets, daily range): BP systolic 87–153; BP diastolic 49–107
--- NOTE | 2018-08-29 00:08 | Diagnostic Imaging Report ---
EXAM: ABDOMEN-1VIEW (KUB) DATE: 08/28/2018 11:38 PM Time stamp on exam: 2355 hours INDICATION: NG tube repositioning COMPARISON: 08/28/2018 at 1925 hours FINDINGS: LINES/TUBES: NG tube remains coiled along the mediastinum within the distal esophagus. BOWEL PATTERN: No evidence for obstruction. SOFT TISSUES: Or conspicuous in noted, there is a calcification in the right paraspinal space measuring 9.4 mm in diameter, in retrospect, stable. Partially opacified renal parenchyma and renal collecting systems. There is also loculation of contrast in the gallbladder most likely vicarious. LUNG BASES: Left lower lobe atelectasis BONES: Degenerative changes of the thoracolumbar spine. IMPRESSION: 1. Suboptimal positioning of NG tube. Removal and reintroduction is recommended for tip of the catheter to move forward. Signed by: Dr. Gibran Castillo M.D. on 08/29/2018 12:04 AM
[2018-08-29 04:46] LABS: BASOPHILS % 0.1 % (0.0-1.0); HEMATOCRIT 32.3 % (38.2-49.6); LYMPHOCYTES # (AUTO) 0.9 (1.0-3.2); LYMPHOCYTES % 8.5 % (18.0-39.1); MEAN CORPUSCULAR HEMOGLOBIN 31.4 pg (28-32); MEAN CORPUSCULAR HGB CONC 34.1 g/dL (31-35); MEAN CORPUSCULAR VOLUME 92.3 fL (81-99); MONOCYTES # (AUTO) 0.9 (0.2-0.8); MONOCYTES % 8.4 % (4.4-11.3); NEUTROPHILS # (AUTO) 8.5 (2.1-6.9); NEUTROPHILS % 82.5 % (38.7-80.0); PLATELET COUNT 133 x10e3/uL (140-360); RED CELL DISTRIBUTION WIDTH 13.3 % (11.7-14.4)
[2018-08-29 05:09] LABS: ALANINE AMINOTRANSFERASE 26 IU/L (0-55); ALBUMIN 2.3 g/dL (3.5-5.0); ALKALINE PHOSPHATASE 51 IU/L (40-150); ANION GAP 16.5 mmol/L (8-16); BLOOD UREA NITROGEN 23 mg/dL (7-26); BUN/CREATININE RATIO 25 (6-25); CALCIUM 8.1 mg/dL (8.4-10.2); CARBON DIOXIDE 27 mmol/L (22-29); CHLORIDE 103 mmol/L (98-107); CREATININE, SERUM 0.91 mg/dL (0.72-1.25); EST GLOMERULAR FILTRATION RATE > 60 ML/MIN (60-); GLUCOSE 104 mg/dL (74-118); SODIUM 144 mmol/L (136-145)
[2018-08-29] MEDS: LEVOTHYROXINE SODIUM 75 MCG TAB PO SCH (05:22)
[2018-08-29 05:45] LABS: POTASSIUM 2.5 mmol/L (3.5-5.1)
[2018-08-29] MEDS ORDERED: POTASSIUM CHLORIDE 20MEQ/100ML 100 ML ONE (06:01)
[2018-08-29] MEDS ORDERED: POTASSIUM CHLORIDE 20MEQ/100ML 100 ML IV ONE (06:30)
[2018-08-29] MEDS: PANTOPRAZOLE 40 MG 10ML VIAL IV SCH (08:36)
[2018-08-29] MEDS: SODIUM CHLORIDE 0.9% 1000ML 1,000 ML IV SCH ×2 (08:37→23:14)
[2018-08-29] MEDS: HYDROCORTISONE SOD SUCCINATE 100 MG VIAL IV SCH ×2 (08:37→20:44)
[2018-08-29 08:57] LABS: ABG HCO3 31 mmol/L (23-28); ABG PCO2 42 mmHg (41-51); ABG PH 7.47 (7.31-7.41); ABG PO2 101 mmHg (80-105)
[2018-08-29] MEDS ORDERED: ATENOLOL 100 MG TAB PO SCH (09:00)
[2018-08-29] MEDS: ATENOLOL 50 MG TAB PO SCH ×2 (09:00→18:25)
[2018-08-29] MEDS: LISINOPRIL 20 MG TAB PO SCH (09:00)
[2018-08-29] MEDS ORDERED: LORAZEPAM INJ 2 MG/ML VIAL IV ONE (09:45)
[2018-08-29] MEDS ORDERED: POTASSIUM CHLORIDE 20MEQ/100ML 20 MEQ in POTASSIUM CHLORIDE 20MEQ/100ML 100 ML IV ONE (10:30)
[2018-08-29] MEDS: CEFTRIAXONE SOD 1 GM VIAL IV SCH (14:27)
[2018-08-29] MEDS: AZITHROMYCIN 500MG/NS 250 ML 250 ML IV SCH (14:27)
[2018-08-29] MEDS: FINASTERIDE 5 MG TAB PO SCH (14:32)
--- NOTE | 2018-08-29 15:17 | Diagnostic Imaging Report ---
Exam: Fluoroscopic guided Dobbhoff feeding tube placement. History: Patient on respirator with inability to place an NG tube that is needed for supplemental feeds. Comparison: Abdominal film dated 08/28/2018 at 11:38 PM Findings: Utilizing fluoroscopic guidance a mercury weighted Dobbhoff feeding tube was placed through the nostril into the esophagus and the and into the stomach. Air was injected through the lumen to confirm location within the stomach and two images were obtained and to PACS. Fluoroscopy time: 2.6 minutes Total dose: 80.28 mGy Impression: Successful fluoroscopic guidance for placement of a Dobbhoff feeding tube. Signed by: Dr. Soham Hurley DO on 08/29/2018 3:13 PM
[2018-08-29] MEDS: PROPOFOL IV EMULSION 10MG/ML 100 ML IV PRN (17:56)
[2018-08-29] MEDS ORDERED: SUCCINYLCHOLINE 200 MG/10 ML SYR ONE (18:22)
[2018-08-29] MEDS ORDERED: ETOMIDATE 40 MG/ 20ML VIAL IV ONE (18:22)
[2018-08-29] MEDS: SIMVASTATIN 20 MG TAB PO SCH (20:44)
[2018-08-29] MEDS: ALPRAZOLAM 0.5 MG TAB PO PRN (20:44)
[2018-08-30] VITALS (33 sets, daily range): BP systolic 86–185; BP diastolic 52–95
[2018-08-30 04:53] LABS: HEMATOCRIT 32.3 % (38.2-49.6); HEMOGLOBIN 10.8 g/dL (14.0-18.0); LYMPHOCYTES # (AUTO) 0.6 (1.0-3.2); LYMPHOCYTES % 8.4 % (18.0-39.1); MEAN CORPUSCULAR HEMOGLOBIN 31.2 pg (28-32); MEAN CORPUSCULAR HGB CONC 33.4 g/dL (31-35); MEAN CORPUSCULAR VOLUME 93.4 fL (81-99); MONOCYTES # (AUTO) 0.5 (0.2-0.8); MONOCYTES % 6.6 % (4.4-11.3); NEUTROPHILS % 84.3 % (38.7-80.0); PLATELET COUNT 114 x10e3/uL (140-360); RED BLOOD COUNT 3.46 x10e6/uL (4.3-5.7); RED CELL DISTRIBUTION WIDTH 13.2 % (11.7-14.4)
[2018-08-30 05:07] LABS: ALANINE AMINOTRANSFERASE 24 IU/L (0-55); ALBUMIN 2.2 g/dL (3.5-5.0); ALBUMIN/GLOBULIN RATIO 0.8 (0.8-2.0); ALKALINE PHOSPHATASE 49 IU/L (40-150); ANION GAP 15.2 mmol/L (8-16); BLOOD UREA NITROGEN 24 mg/dL (7-26); BUN/CREATININE RATIO 33 (6-25); CALCIUM 8.2 mg/dL (8.4-10.2); CARBON DIOXIDE 28 mmol/L (22-29); CHLORIDE 101 mmol/L (98-107); CREATININE, SERUM 0.72 mg/dL (0.72-1.25); EST GLOMERULAR FILTRATION RATE > 60 ML/MIN (60-); GLUCOSE 167 mg/dL (74-118); SODIUM 142 mmol/L (136-145)
[2018-08-30 05:16] LABS: POTASSIUM 2.2 mmol/L (3.5-5.1)
[2018-08-30] MEDS: LEVOTHYROXINE SODIUM 75 MCG TAB PO SCH (05:56)
[2018-08-30] MEDS ORDERED: POTASSIUM CHLORIDE 20MEQ/100ML 100 ML IV ONE (06:00)
[2018-08-30] MEDS ORDERED: POTASSIUM CHLORIDE 20MEQ/15ML UDC NG ONE ×4 (06:00→20:15)
[2018-08-30] MEDS ORDERED: LORAZEPAM INJ 2 MG/ML VIAL ONE (08:37)
[2018-08-30] MEDS ORDERED: LORAZEPAM INJ 2 MG/ML VIAL IV ONE ×2 (08:45→14:30)
[2018-08-30] MEDS ORDERED: FUROSEMIDE INJ 10 MG/ML 2 ML VIAL IV ONE ×2 (08:45→17:00)
[2018-08-30] MEDS: ATENOLOL 50 MG TAB PO SCH ×2 (09:00→16:02)
--- NOTE | 2018-08-30 09:29 | Diagnostic Imaging Report ---
PROCEDURE: A single AP view of the chest. COMPARISON: Chest radiograph 08/28/18. INDICATIONS: FLUID OVERLOAD FINDINGS: Lines/tubes: ET tube terminates 4.7 cm above the carter. Enteric tube courses into the stomach, the tip is not seen. Right IJ central line tip is obscured but likely terminates near the cavoatrial junction. Lungs: Mild bilateral perihilar and interstitial opacities. Increasing right basilar opacities. Persistent left retrocardiac opacity. Pleura: Increasing small right and persistent small left pleural effusion. No evidence of pneumothorax. Heart and mediastinum: The heart and the mediastinum are unremarkable. Bones: No acute bony abnormality. IMPRESSION: Findings of mild pulmonary interstitial edema and small bilateral pleural effusions. Patchy right basilar opacity, likely atelectasis. Left lower lobe opacity may represent atelectasis or pneumonia in the appropriate clinical context. Dictated by: GENNY RAY M.D. on 08/30/2018 at 9:38 Electronically approved by: GENNY RAY M.D. on 08/30/2018 at 9:38
[2018-08-30 09:39] LABS: ABG HCO3 30 mmol/L (23-28); ABG PCO2 45 mmHg (41-51); ABG PH 7.43 (7.31-7.41); ABG PO2 97 mmHg (80-105)
[2018-08-30] MEDS: PANTOPRAZOLE 40 MG 10ML VIAL IV SCH (09:44)
--- NOTE | 2018-08-30 09:44 | Progress Note ---
DATE: August 30, 2018 PULMONARY CRITICAL CARE CONSULTATION The patient is urinating well through the suprapubic catheter. The potassium was 2.2 this morning, and he received K-rider along with oral potassium. The patient was placed on a spontaneous breathing trial with pressure support of 10 and CPAP of 5 this morning. He became tachypneic into the low 30s, and had tidal volumes of 200 to 250 mL. He was switched back to SIMV. PHYSICAL EXAMINATION VITALS: The patient is afebrile. His blood pressure is 141/67 and his pulse is 61. HEENT: Shows no facial swelling or erythema. He has an oral endotracheal tube in and a nasal feeding tube. He has a right IJ in place. CARDIAC: Reveals a regular rate and rhythm with a normal S1 and S2. There are no murmurs or rubs. LUNGS: Auscultation of the lungs reveals rhonchus breath sounds bilaterally. There is no wheezing. ABDOMEN: Soft and nontender. There is no rebound or guarding. EXTREMITIES: Shows no leg edema or calf tenderness. There is no cyanosis or clubbing. SKIN: Shows no rashes. IMPRESSION 1. Respiratory failure. 2. Hypoproteinemia. 3. Postobstructive renal failure and bladder retention. 4. Pneumonia. 5. Hypertension. 6. Possible kidney cancer. PLAN 1. Patient will receive IV Lasix now. 2. We will repeat the chest x-ray. 3. Continue antibiotics. 4. Replete potassium. 5. Continue enteral feedings. 6. Continue sedation. 7. Continue to work towards extubation. 8. Case discussed with the patient, , nursing, and respiratory. 9. Greater than 35 minutes in direct critical care time. Job#: [id number] SKIP CHAPMAN
[2018-08-30] MEDS: HYDROCORTISONE SOD SUCCINATE 100 MG VIAL IV SCH ×2 (09:45→20:34)
--- NOTE | 2018-08-30 10:17 | Cardiology Report ---
DATE OF STUDY: ECHOCARDIOGRAM M-MODE: Normal chamber sizes. Left ventricular hypertrophy. Normal contractility. Normal mitral and aortic valves. No pericardial effusion. Suboptimal study. SECTOR SCAN: Suboptimal study with poor image quality. Normal chamber sizes. Left ventricular hypertrophy. Normal contractility. Normal mitral, aortic and tricuspid valves. No pericardial effusion. CARDIAC DOPPLER STUDY WITH COLOR: Trace tricuspid and mitral regurgitation. CONCLUSION 1. Suboptimal study with poor image quality. 2. Left ventricular hypertrophy with ejection fraction of approximately 50%. 3. Trace mitral and tricuspid regurgitation. Job#: [id number] RI cc:MAMTA FREEMAN MD
[2018-08-30] MEDS: LISINOPRIL 20 MG TAB PO SCH (11:45)
[2018-08-30] MEDS: FINASTERIDE 5 MG TAB PO SCH (11:45)
[2018-08-30] MEDS: AZITHROMYCIN 500MG/NS 250 ML 250 ML IV SCH (12:30)
[2018-08-30] MEDS: CEFTRIAXONE SOD 1 GM VIAL IV SCH (12:30)
[2018-08-30] MEDS ORDERED: HYDROCORTISONE SOD SUCCINATE 100 MG VIAL IV SCH (14:30)
--- NOTE | 2018-08-30 19:02 | Consultation ---
DATE OF CONSULTATION: August 30, 2018 CLINICAL HISTORY: This is a 77-year-old man referred by Dr. Sudheer Viramontes for evaluation of shortness of breath that required intubation with echocardiogram showing ejection fraction of 50%. This patient apparently has long-standing history of urologic problems. There is history of benign prostatic hypertrophy, elevated PSA, renal lesion that the says has been there for some time. For several days, he has had cough and pulmonary congestion. He eventually came to the emergency room and was felt to have possible pneumonia involving the left lower lobe. He eventually required intubation. He was unable to urinate. He had a suprapubic tube inserted. CT scan of the abdomen showed 3.2 cm renal mass suspicious for renal cell carcinoma. In the meantime, he had sporadic low blood pressure, possibly due to propofol sedation. There is history of hypertension and there is concern about hypoadrenalism but the potassium was low rather than high at around 2.2. Patient is not taking any diuretics. Sodium previously worse 134, but now is up to 142. Dr. Lawrence is evaluating endocrine condition. He has ordered ACTH and Prolactin. The Prolactin is somewhat elevated. ACTH is somewhat low. No aldosterone level or cortisol level. Chest x-ray showed blunting of the left costophrenic angle suggestive of left greater than right pleural effusion. Left lower lobe atelectasis or pneumonia. Patchy opacity. Chest CT showed no evidence of pulmonary embolism. PAST MEDICAL HISTORY: Is remarkable for hypertension, hypothyroidism, renal mass status post biopsy. PERSONAL/SOCIAL HISTORY: Denies smoking or drinking. 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 ALLERGIES: NONE KNOWN. REVIEW OF SYSTEMS: Negative. PHYSICAL EXAMINATION: GENERAL: He is sedated and intubated. CARDIAC: Jugular veins are not distended. S1 and S2 were distant and regular. There no appreciable murmurs. LUNGS: Show scattered crackles. ABDOMEN: Soft. Bowel sounds were diminished. EXTREMITIES: Showed no cyanosis, clubbing or edema. IMPRESSION: 1. Respiratory failure requiring intubation of undetermined etiology, possible left lower lobe pneumonia with left pleural effusion. 2. Preserved left ventricular function. Ejection fraction is approximately 50%. 3. Right renal mass measuring 3.2 cm, rule out renal cell carcinoma. 4. History of hypothyroidism. 5. History of hypertension. 6. Recent problem with vision, seeing Dr. Carlin Kimball. 7. Benign prostatic hypertrophy. 8. Suprapubic tube for inability to void. RECOMMENDATION: This patient had no cardiac history. He has no previous complaints of chest pains, no previous myocardial infarction. EKG showed no acute findings. I recommend continue supportive care with regards to his respiratory failure. Workup for above-mentioned medical conditions. Job#: [id number] GH cc:SUDHEER VIRAMONTES M.D.
[2018-08-30] MEDS ORDERED: DEXMEDETOMIDINE 200MCG/NS 50ML 50 ML IV PRN (19:30)
[2018-08-30 19:55] LABS: ALANINE AMINOTRANSFERASE 27 IU/L (0-55); ALBUMIN 2.3 g/dL (3.5-5.0); ALBUMIN/GLOBULIN RATIO 0.8 (0.8-2.0); ALKALINE PHOSPHATASE 49 IU/L (40-150); ANION GAP 12.9 mmol/L (8-16); BLOOD UREA NITROGEN 20 mg/dL (7-26); BUN/CREATININE RATIO 25 (6-25); CALCIUM 8.4 mg/dL (8.4-10.2); CARBON DIOXIDE 33 mmol/L (22-29); CHLORIDE 101 mmol/L (98-107); CREATININE, SERUM 0.79 mg/dL (0.72-1.25); EST GLOMERULAR FILTRATION RATE > 60 ML/MIN (60-); GLUCOSE 195 mg/dL (74-118); SODIUM 144 mmol/L (136-145)
[2018-08-30 19:57] LABS: POTASSIUM 2.9 mmol/L (3.5-5.1)
[2018-08-30] MEDS: SIMVASTATIN 20 MG TAB PO SCH (20:41)
[2018-08-30] MEDS: PROPOFOL IV EMULSION 10MG/ML 100 ML IV PRN (20:56)
[2018-08-31] VITALS (35 sets, daily range): BP systolic 84–157; BP diastolic 53–98
[2018-08-31] MEDS ORDERED: POTASSIUM CHLORIDE 20MEQ/15ML UDC NG NR
--- NOTE | 2018-08-31 05:38 | Diagnostic Imaging Report ---
CHEST SINGLE (PORTABLE), 08/31/2018 6:00 AM Technique: CHEST SINGLE (PORTABLE) Comparison: 08/28/2018. Clinical history: Respiratory failure Findings: See Impression Impression: 1. Lines/Tubes: Stable ET tube 3.3 cm above the carter, subdiaphragmatic enteric tube, right IJ central venous catheter. 2. Stable mildly enlarged cardiac silhouette. 3. Small bilateral effusions with associated atelectasis or consolidation. Signed by: Dr Angélica Allison MD on 08/31/2018 5:34 AM
[2018-08-31] MEDS: LEVOTHYROXINE SODIUM 75 MCG TAB PO SCH (06:06)
[2018-08-31] MEDS: PANTOPRAZOLE 40 MG 10ML VIAL IV SCH (08:04)
[2018-08-31] MEDS: LISINOPRIL 20 MG TAB PO SCH (08:05)
[2018-08-31] MEDS: FINASTERIDE 5 MG TAB PO SCH (08:05)
[2018-08-31] MEDS: HYDROCORTISONE SOD SUCCINATE 100 MG VIAL IV SCH ×2 (08:05→21:24)
[2018-08-31] MEDS ORDERED: MAGNESIUM SULFATE 2GM/50ML 50 ML IV PRN (08:15)
[2018-08-31 09:18] LABS: BASOPHILS % 0.1 % (0.0-1.0); EOSINOPHILS % 0.2 % (0.0-6.0); HEMATOCRIT 34.2 % (38.2-49.6); HEMOGLOBIN 11.5 g/dL (14.0-18.0); LYMPHOCYTES # (AUTO) 1.3 (1.0-3.2); LYMPHOCYTES % 14.3 % (18.0-39.1); MEAN CORPUSCULAR HEMOGLOBIN 31.3 pg (28-32); MEAN CORPUSCULAR HGB CONC 33.6 g/dL (31-35); MEAN CORPUSCULAR VOLUME 93.2 fL (81-99); MONOCYTES # (AUTO) 0.8 (0.2-0.8); MONOCYTES % 8.6 % (4.4-11.3); NEUTROPHILS # (AUTO) 6.9 (2.1-6.9); NEUTROPHILS % 76.3 % (38.7-80.0); PLATELET COUNT 121 x10e3/uL (140-360); RED BLOOD COUNT 3.67 x10e6/uL (4.3-5.7)
[2018-08-31 09:37] LABS: ANION GAP 9.7 mmol/L (8-16); BLOOD UREA NITROGEN 24 mg/dL (7-26); BUN/CREATININE RATIO 35 (6-25); CALCIUM 8.5 mg/dL (8.4-10.2); CARBON DIOXIDE 37 mmol/L (22-29); CHLORIDE 100 mmol/L (98-107); CREATININE, SERUM 0.69 mg/dL (0.72-1.25); EST GLOMERULAR FILTRATION RATE > 60 ML/MIN (60-); GLUCOSE 190 mg/dL (74-118); MAGNESIUM 1.5 MG/DL (1.3-2.1); PHOSPHORUS 1.8 MG/DL (2.3-4.7); SODIUM 144 mmol/L (136-145)
[2018-08-31 09:39] LABS: POTASSIUM 2.7 mmol/L (3.5-5.1)
[2018-08-31] MEDS: POTASSIUM CHLORIDE 20MEQ/15ML UDC NG PRN (09:43)
[2018-08-31 10:04] LABS: ABG HCO3 39 mmol/L (23-28); ABG PH 7.47 (7.31-7.41); ABG PO2 82 mmHg (80-105)
[2018-08-31 10:05] LABS: ABG PCO2 54 mmHg (41-51)
[2018-08-31] MEDS: CEFTRIAXONE SOD 1 GM VIAL IV SCH (12:10)
[2018-08-31] MEDS: AZITHROMYCIN 500MG/NS 250 ML 250 ML IV SCH (12:10)
[2018-08-31] MEDS: ATENOLOL 50 MG TAB PO SCH ×2 (12:18→16:34)
[2018-08-31] MEDS ORDERED: GADOBENATE DIMEGLUMINE 1 ML IV ONE (14:41)
[2018-08-31] MEDS ORDERED: POTASSIUM CHLORIDE 20MEQ/15ML UDC NG ONE (15:45)
[2018-08-31] MEDS ORDERED: ACETAZOLAMIDE 250 MG TAB PO SCH (15:45)
[2018-08-31] MEDS ORDERED: SODIUM PHOSPHATE 3 MMOL/ML INJ IV ONE (15:45)
[2018-08-31] MEDS ORDERED: ACETAZOLAMIDE SODIUM 500 MG/VIAL IV NR (16:00)
[2018-08-31] MEDS ORDERED: SODIUM PHOSPHATE 10 MMOL in SODIUM CHLORIDE 0.9% 250ML 250 ML IV ONE (16:30)
[2018-08-31] MEDS: SIMVASTATIN 20 MG TAB PO SCH (21:24)
[2018-09-01] VITALS (42 sets, daily range): BP systolic 100–175; BP diastolic 58–89
[2018-09-01 04:41] LABS: BASOPHILS % 0.1 % (0.0-1.0); EOSINOPHILS % 0.4 % (0.0-6.0); HEMATOCRIT 36.7 % (38.2-49.6); HEMOGLOBIN 12.1 g/dL (14.0-18.0); LYMPHOCYTES # (AUTO) 0.7 (1.0-3.2); LYMPHOCYTES % 7.9 % (18.0-39.1); MEAN CORPUSCULAR HEMOGLOBIN 31.6 pg (28-32); MEAN CORPUSCULAR VOLUME 95.8 fL (81-99); MONOCYTES # (AUTO) 0.6 (0.2-0.8); MONOCYTES % 7.2 % (4.4-11.3); NEUTROPHILS # (AUTO) 7.1 (2.1-6.9); NEUTROPHILS % 83.7 % (38.7-80.0); PLATELET COUNT 133 x10e3/uL (140-360); RED BLOOD COUNT 3.83 x10e6/uL (4.3-5.7)
[2018-09-01 05:05] LABS: ANION GAP 8.2 mmol/L (8-16); BLOOD UREA NITROGEN 22 mg/dL (7-26); BUN/CREATININE RATIO 34 (6-25); CALCIUM 8.6 mg/dL (8.4-10.2); CARBON DIOXIDE 39 mmol/L (22-29); CHLORIDE 98 mmol/L (98-107); CREATININE, SERUM 0.64 mg/dL (0.72-1.25); EST GLOMERULAR FILTRATION RATE > 60 ML/MIN (60-); GLUCOSE 216 mg/dL (74-118); PHOSPHORUS 3.1 MG/DL (2.3-4.7); POTASSIUM 3.2 mmol/L (3.5-5.1); SODIUM 142 mmol/L (136-145)
[2018-09-01] MEDS: LEVOTHYROXINE SODIUM 75 MCG TAB PO SCH (05:37)
[2018-09-01] MEDS ORDERED: BUPIVACAINE 0.25%/EPI 30ML SDV INJ ONE (07:35)
[2018-09-01] MEDS: POTASSIUM CHLORIDE 20MEQ/15ML UDC NG PRN (07:53)
[2018-09-01] MEDS: PANTOPRAZOLE 40 MG 10ML VIAL IV SCH (08:44)
[2018-09-01] MEDS: LISINOPRIL 20 MG TAB PO SCH (08:44)
[2018-09-01] MEDS: HYDROCORTISONE SOD SUCCINATE 100 MG VIAL IV SCH (08:44)
[2018-09-01] MEDS: FINASTERIDE 5 MG TAB PO SCH (08:44)
[2018-09-01] MEDS: ATENOLOL 50 MG TAB PO SCH ×2 (08:45→17:25)
--- NOTE | 2018-09-01 13:03 | Diagnostic Imaging Report ---
Exam: Ultrasound and fluoroscopic guidance for suprapubic catheter placement. History: Unable to place Ramirez catheter per urethra. Bladder scan in the ICU estimates the bladder to be distended at 1000 cc. Comparison: Recent abdominal CT performed on 08/25/2018. Findings: The patient had an indwelling Ramirez catheter. This was removed. A new Ramirez catheter could not be replaced. Emergent suprapubic catheter placement was requested. Sterile preparation and local anesthesia with 1% Xylocaine was accomplished. Ultrasound was utilized for guidance and placement of an 18-gauge needle into the distended urinary bladder. This was followed by a 0.035 " Amplatz superstiff wire. Fluoroscopy was then provided for serial dilatation with fascial dilators up to 16 Malay in size. A 14 Malay Malecot suprapubic urinary bladder catheter was then placed over the wire through the peel-away sheath. Contrast was injected confirming appropriate position. Catheter was secured to the skin with 3-0 Ethilon. Fluoroscopy time: 2.6 minutes Dose Area Product: 276.9 cGycm2 Impression: Successful suprapubic urinary bladder catheter placement utilizing ultrasound and fluoroscopy for guidance and placement. Signed by: Dr. Soham Hurley DO on 08/29/2018 10:14 AM
--- NOTE | 2018-09-01 15:45 | Diagnostic Imaging Report ---
PROCEDURE: X-RAY MODIFIED BARIUM SWALLOW COMPARISON: None. INDICATION: Extubated. DISCUSSION: Fluoroscopic examination was performed in conjunction with speech pathology during swallowing a variety of thin and thick liquid consistencies. Penetration with a trace amount of aspiration is demonstrated. CONCLUSION: Penetration with a trace amount of aspiration is demonstrated. Please refer to the speech pathology report for further details. Signed by: Dr. Jorgito Smith MD on 09/01/2018 3:42 PM
[2018-09-01] MEDS: SIMVASTATIN 20 MG TAB PO SCH (21:58)
[2018-09-01] MEDS: PYRIDOSTIGMINE BROMIDE 60 MG TAB PO SCH (21:58)
--- NOTE | 2018-09-01 23:02 | Consultation ---
DATE OF CONSULTATION: September 01, 2018 NEUROLOGY CONSULT NOTE HISTORY OF PRESENT ILLNESS: Mr. Liu is a 77-year-old ilpqw-eqfh-jeqvdvoo man with past medical history significant for hypertension, hyperlipidemia, thyroid disease, and an anxiety disorder, admitted to [facility] on August 26, 2018 with pneumonia, sepsis, respiratory failure, and renal insufficiency. Shortly after his presentation to [facility], the patient was intubated for airway protection. This occurred on August 25, 2018. He was extubated on August 26, 2018. On August 27, 2018, the patient was sitting upright in bed, eating a hamburger. Suddenly, the patient indicated to his nurse something was wrong. He then fell to the bed, desaturated, and became pale. The patient's nurse reports a large chunk of hamburger meat was removed from the patient's throat. He was then intubated for airway protection. Mr. Liu was subsequently extubated on August 31, 2018. On September 01, 2018, the patient underwent a modified barium swallow, which revealed aspiration of thin liquids. Throughout his hospitalization, the patient has been noted to have bilateral ptosis. This in combination with his respiratory failure on presentation, choking on his food, and aspiration on the modified barium swallow have raised concerns for an underlying neurological disorder, therefore, a neurology consultation was requested. Mr. Liu reports having ptosis for the past 3 to 4 years. He does report worsening of the ptosis from time to time. Occasionally, the ptosis is so severe, it causes diplopia. Mr. Liu endorses possible dysphasia. He reports mild dysarthria. He does not endorse shortness of breath. The patient does not report weakness in his arms. He does report some weakness in his legs. Specifically, the patient reports having difficulty standing from a seated position and climbing stairs. He has no difficulty walking downstairs. As stated above, all of these symptoms have been present for approximately 3 to 4 years. Mr. Liu reports the symptoms do improve with a short period of rest. There is no known family history of neuromuscular disease. REVIEW OF SYSTEMS: Cough, abdominal pain, urinary frequency, double vision, dysarthria, weakness of the legs, dizziness which is further described as a vertiginous sensation exacerbated by quick movements to the right. PAST MEDICAL HISTORY: Hypertension, hyperlipidemia, thyroid disease, anxiety disorder, benign prostatic hypertrophy. PAST SURGICAL HISTORY: Prior prostate surgery (exact procedure unknown), tonsillectomy. PAST HOSPITALIZATIONS: Surgeries/procedures as listed. FAMILY MEDICAL HISTORY: The patient's paternal and maternal grandparents are . Their medical histories are unknown. The patient's father and mother are . Their medical histories are unknown. Mr. Liu has 3 brothers, all of whom are alive and healthy. The patient has 4 children, 3 sons and 1 daughter, all of whom are alive and healthy. SOCIAL HISTORY: The patient is . He is retired. Mr. Liu does not report current or prior tobacco, alcohol, or recreational drug use. HOME MEDICATIONS: Alprazolam 1 mg by mouth at bedtime daily, atenolol chlorthalidone 1 tablet by mouth twice daily, finasteride 5 mg by mouth daily, levothyroxine 150 mcg by mouth daily, lisinopril 20 mg by mouth twice daily, rosuvastatin 10 mg by mouth daily. ALLERGIES: PENICILLIN, VANCOMYCIN, INFLUENZA VIRUS VACCINE. SEA FOOD. NO KNOWN ALLERGIES TO LATEX. NO KNOWN ALLERGIES TO IODINE OR OTHER CONTRAST MATERIALS. PHYSICAL EXAMINATION: VITAL SIGNS: Height 66 inches, weight 204 pounds. BMI 33.0 kg/sq m. Blood pressure 146/72 mmHg, pulse 72 beats per minute, respiratory rate 18 breaths per minute, oxygen saturation 99% on 2 liters by nasal cannula. GENERAL: The patient is awake and alert, does not appear distressed. Obese. HEENT: Normocephalic, atraumatic. Pupils are equal, round, and reactive to light. Moist mucous membranes. NECK: Supple. No appreciable thyromegaly. No appreciable carotid bruits. CARDIOVASCULAR: S1, S2, regular rate and rhythm. No murmurs, rubs, or gallops. RESPIRATORY: Clear to auscultation bilaterally. No wheezes, rhonchi, or rales. EXTREMITIES: The skin is warm and dry. No clubbing, cyanosis, or edema. The posterior tibial and dorsalis pedis pulses are 2+ and symmetric. SKIN: No rashes or lesions. NEUROLOGIC EXAMINATION: MEMORY/ATTENTION: The patient is awake and alert, oriented to person, place, time, and situation. CRANIAL NERVES: Cranial nerve I - not tested. Cranial nerves II, III, IV, and - Pupils are equal and round, reacts briskly to light (from 4 mm to 2 mm). Extraocular movements intact. No nystagmus. Positive bilateral ptosis worsened by sustained upgaze. Cranial nerve V - Sensation to light touch and pinprick is intact in the bilateral V1 through V3 distributions. Strength of the temporalis and masseter muscles is within normal limits. Cranial nerve VII - The face is symmetric as are all facial movements. Strength is within normal limits. Cranial nerve VIII - Hearing is intact to finger rub bilaterally. Cranial nerve IX, X - The soft palate elevates equally and symmetrically. Cranial nerve XI - Normal strength of the bilateral sternocleidomastoid and trapezius muscles. Cranial nerve XII - The tongue protrudes midline and moves symmetrically from side to side. STRENGTH: Bulk is normal. Strength is 5/5 in the bilateral biceps, triceps, wrist flexors and extensors, finger flexors and extensors, intrinsic hand muscles, knee flexors and extensors, ankle dorsiflexion and plantarflexion, and intrinsic foot muscles. Strength is 4/5 in the bilateral deltoids. Strength is 4/5 in the bilateral hip flexors. There is decremental strength with repeated assessment of both muscles. Tone is normal. DTRs: Deep tendon reflexes are 1+ and symmetric at the triceps, biceps, brachioradialis, and patellas. Deep tendon reflexes are absent and symmetric at the Achilles. Plantar responses are flexor bilaterally. SENSATION: Sensation is intact to light touch and pinprick in both arms and both legs. CEREBELLAR: Zoehii-uovw-elqbkl and heel-chowdhury movements are intact without dysmetria or other impairment. GAIT: Deferred. SPEECH: Spontaneous speech is significant for flaccid dysarthria without aphasia. Repetition is intact. INVOLUNTARY MOVEMENTS: None. PRONATOR DRIFT: None. LABORATORY DATA: The most recent basic metabolic panel is significant for a potassium of 3.2, carbon dioxide of 39, creatinine of 0.64, BUN to creatinine ratio of 34, and serum glucose of 216. The CBC with differential and platelets is significant for white blood cell count of 8.52 with 83.7% neutrophils, 7.9% lymphocytes, 7.2% monocytes, 0.4% eosinophils, and 0.1% basophils. Blood cultures collected on August 25, 2018 showed no growth after 5 days. A sputum culture collected on August 29, 2018 grew usual respiratory donna. DIAGNOSTIC STUDIES: 1. Electrocardiogram, August 25, 2018: Normal sinus rhythm at 72 beats per minute. 2. Chest x-ray, August 25, 2018: Patchy opacity in the left lower lobe which could represent pneumonia or atelectasis in the appropriate clinical setting. Followup chest radiograph suggested in 6 to 8 weeks to assess for resolution. 3. CT of the chest, August 25, 2018: No evidence of pulmonary embolism to the segmental pulmonary arteries. Previously noted left lower lobe opacity likely represents atelectasis. 4. CT abdomen and pelvis, August 25, 2018: A. No acute abnormalities in the abdomen and pelvis. B. Right renal 3.2-cm mass compatible with renal cell carcinoma until proven otherwise. C. Additional low-attenuating lesions in the kidneys may represent hemorrhagic or proteinaceous cysts, but are indeterminate. D. Hyper-attenuating lesions in the liver may represent flash filling hemangiomas, but are indeterminate in the setting of a hypervascular primary tumor such as renal cell carcinoma. E. Recommend further evaluation with nonemergent abdominal MRI with and without contrast. 5. CT of the brain without contrast, August 27, 2018: No acute abnormalities. Chronic findings: A. Mild generalized volume loss. B. Mild supratentorial white matter small-vessel ischemic changes. C. 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 6. Echocardiogram, August 28, 2018: Ejection fraction 45% to 50%. Trace mitral and tricuspid regurgitation. Hxynx-ne-qwlp aortic insufficiency. 7. Abdomen x-ray, August 28, 2018: Possible NG/OG tube tip overlying the lower esophagus. Recommend repeat KUB. 8. Abdomen x-ray, August 28, 2018: A. Suboptimal positioning of NG tube. Removal and reintroduction is recommended for tip of the catheter to move forward. 9. Chest x-ray, August 31, 2018: A. Lines/tubes: Stable ET tube 3.3 cm above the carter, subdiaphragmatic enteric tube, right IJ central venous catheter. B. Stable mildly enlarged cardiac silhouette. C. Small bilateral effusions with associated atelectasis or consolidation. 10. Modified barium swallow, September 01, 2018: Penetration with trace amount of aspiration is demonstrated. Please refer to the speech pathology report for further details. ASSESSMENT AND PLAN: Mr. Liu is a 77-year-old yxglr-rusw-xmhphvfs man admitted to the intensive care unit at [facility] on August 26, 2018 with multiple symptoms, including bilateral ptosis, respiratory failure status post intubation and extubation x2, choking, and dysphasia. The patient has undergone a thorough neurological examination with findings detailed above. The patient's laboratory data and other diagnostic studies have been reviewed and are documented above. Mr. Liu's symptoms as well as the findings on his neurological examination are compatible with a diagnosis of myasthenia gravis. RECOMMENDATIONS: As follows: 1. A myasthenia gravis panel and anti-striated muscle antibodies have been ordered. 2. Discontinue intravenous hydrocortisone. Mr. Liu will be prescribed prednisone 60 mg by mouth daily for 3 days, followed by prednisone 40 mg by mouth daily for 3 days, followed by prednisone 20 mg by mouth daily for 3 days, followed by prednisone 10 mg by mouth daily for 3 days for myasthenia gravis exacerbation. 3. Treatment with pyridostigmine 60 mg by mouth 3 times daily will be initiated, first dose tonight. 4. Defer treatment of the remaining medical comorbidities to the primary and other services following the patient. Thank you for this consultation. I will continue to follow this patient while he remains in the hospital. TIME SPENT: 70 minutes. Job#: [id number] DR CHAPMAN
[2018-09-02] VITALS (50 sets, daily range): BP systolic 95–167; BP diastolic 56–104
[2018-09-02 04:46] LABS: BASOPHILS % 0.1 % (0.0-1.0); EOSINOPHILS # (AUTO) 0.1 (0.0-0.4); HEMATOCRIT 35.7 % (38.2-49.6); HEMOGLOBIN 11.4 g/dL (14.0-18.0); LYMPHOCYTES # (AUTO) 1.3 (1.0-3.2); LYMPHOCYTES % 18.3 % (18.0-39.1); MEAN CORPUSCULAR HGB CONC 31.9 g/dL (31-35); MONOCYTES # (AUTO) 0.6 (0.2-0.8); MONOCYTES % 8.5 % (4.4-11.3); NEUTROPHILS # (AUTO) 5.2 (2.1-6.9); NEUTROPHILS % 71.3 % (38.7-80.0); PLATELET COUNT 129 x10e3/uL (140-360); RED BLOOD COUNT 3.68 x10e6/uL (4.3-5.7); RED CELL DISTRIBUTION WIDTH 12.8 % (11.7-14.4)
[2018-09-02 05:08] LABS: ANION GAP 9.5 mmol/L (8-16); BLOOD UREA NITROGEN 24 mg/dL (7-26); BUN/CREATININE RATIO 38 (6-25); CALCIUM 8.8 mg/dL (8.4-10.2); CHLORIDE 98 mmol/L (98-107); CREATININE, SERUM 0.63 mg/dL (0.72-1.25); EST GLOMERULAR FILTRATION RATE > 60 ML/MIN (60-); GLUCOSE 198 mg/dL (74-118); MAGNESIUM 1.9 MG/DL (1.3-2.1); POTASSIUM 3.5 mmol/L (3.5-5.1); SODIUM 145 mmol/L (136-145)
[2018-09-02] MEDS: LEVOTHYROXINE SODIUM 75 MCG TAB PO SCH (05:15)
[2018-09-02 05:20] LABS: CARBON DIOXIDE 41 mmol/L (22-29)
[2018-09-02] MEDS ORDERED: PREDNISONE 20 MG TAB PO SCH (09:00)
[2018-09-02] MEDS ORDERED: HYDROCORTISONE SOD SUCCINATE 100 MG VIAL IV SCH (09:00)
[2018-09-02] MEDS: ATENOLOL 50 MG TAB PO SCH (09:00)
[2018-09-02] MEDS: PYRIDOSTIGMINE BROMIDE 60 MG TAB PO SCH ×3 (10:08→22:00)
[2018-09-02] MEDS: PANTOPRAZOLE 40 MG 10ML VIAL IV SCH (10:08)
[2018-09-02] MEDS: LISINOPRIL 20 MG TAB PO SCH (10:09)
[2018-09-02] MEDS: PREDNISONE 20 MG TAB PO SCH (10:09)
[2018-09-02] MEDS: FINASTERIDE 5 MG TAB PO SCH (10:09)
[2018-09-02] MEDS ORDERED: DEXTROSE 50% SYRINGE 50 ML IV PRN (14:45)
[2018-09-02] MEDS ORDERED: SODIUM CHLORIDE 0.45% 1,000 ML IV ONE (14:45)
[2018-09-02] MEDS: ALPRAZOLAM 0.5 MG TAB PO PRN (17:19)
[2018-09-02] MEDS: INSULIN REGULAR, HUMAN 100 UNIT/1 ML 3ML VIAL SQ SCH (21:00)
[2018-09-02] MEDS: SIMVASTATIN 20 MG TAB PO SCH (22:00)
[2018-09-03] VITALS (50 sets, daily range): BP systolic 87–168; BP diastolic 54–93
[2018-09-03 05:17] LABS: BASOPHILS % 0.1 % (0.0-1.0); EOSINOPHILS % 0.1 % (0.0-6.0); HEMOGLOBIN 11.4 g/dL (14.0-18.0); LYMPHOCYTES # (AUTO) 1.1 (1.0-3.2); LYMPHOCYTES % 16.4 % (18.0-39.1); MEAN CORPUSCULAR HEMOGLOBIN 31.5 pg (28-32); MEAN CORPUSCULAR HGB CONC 32.6 g/dL (31-35); MEAN CORPUSCULAR VOLUME 96.7 fL (81-99); MONOCYTES # (AUTO) 0.6 (0.2-0.8); MONOCYTES % 8.6 % (4.4-11.3); NEUTROPHILS # (AUTO) 5.2 (2.1-6.9); NEUTROPHILS % 74.2 % (38.7-80.0); PLATELET COUNT 132 x10e3/uL (140-360); RED BLOOD COUNT 3.62 x10e6/uL (4.3-5.7); RED CELL DISTRIBUTION WIDTH 12.6 % (11.7-14.4)
[2018-09-03] MEDS: LEVOTHYROXINE SODIUM 75 MCG TAB PO SCH (05:26)
[2018-09-03] MEDS: ALPRAZOLAM 0.5 MG TAB PO PRN ×2 (05:28→20:45)
[2018-09-03 05:40] LABS: ANION GAP 11.6 mmol/L (8-16); BLOOD UREA NITROGEN 28 mg/dL (7-26); BUN/CREATININE RATIO 47 (6-25); CHLORIDE 97 mmol/L (98-107); EST GLOMERULAR FILTRATION RATE > 60 ML/MIN (60-); GLUCOSE 113 mg/dL (74-118); MAGNESIUM 1.6 MG/DL (1.3-2.1); POTASSIUM 3.6 mmol/L (3.5-5.1); SODIUM 146 mmol/L (136-145)
[2018-09-03 05:44] LABS: CARBON DIOXIDE 41 mmol/L (22-29)
--- NOTE | 2018-09-03 06:19 | Diagnostic Imaging Report ---
CHEST SINGLE (PORTABLE), 09/03/2018 5:00 AM Technique: CHEST SINGLE (PORTABLE) Comparison: 08/31/2018. Clinical history: Pneumonia Findings: See Impression Impression: 1. Lines/Tubes: ET tube no longer visualized. Stable subdiaphragmatic visualized enteric tube, right IJ central venous catheter. 2. Increased left basilar opacification and volume loss suspicious for underlying mucus plugging/atelectasis. Underlying pleural effusion. 3. Obscured cardiomediastinal silhouette. Signed by: Dr Angélica Allison MD on 09/03/2018 6:16 AM
[2018-09-03] MEDS: INSULIN REGULAR, HUMAN 100 UNIT/1 ML 3ML VIAL SQ SCH ×4 (07:30→21:02)
[2018-09-03] MEDS ORDERED: SODIUM CHLORIDE 0.45% 1,000 ML IV ONE (08:00)
[2018-09-03] MEDS: PREDNISONE 20 MG TAB PO SCH (11:04)
[2018-09-03] MEDS: PYRIDOSTIGMINE BROMIDE 60 MG TAB PO SCH ×3 (11:04→20:45)
[2018-09-03] MEDS: PANTOPRAZOLE 40 MG 10ML VIAL IV SCH (11:04)
[2018-09-03] MEDS: FINASTERIDE 5 MG TAB PO SCH (11:05)
[2018-09-03] MEDS: ATENOLOL 50 MG TAB PO SCH (11:05)
[2018-09-03] MEDS: LISINOPRIL 20 MG TAB PO SCH (11:05)
[2018-09-03] MEDS ORDERED: SODIUM CHLORIDE 0.45% 1,000 ML ONE (12:17)
[2018-09-03] MEDS: SIMVASTATIN 20 MG TAB PO SCH (20:45)
[2018-09-04] VITALS (46 sets, daily range): BP systolic 81–168; BP diastolic 50–93
[2018-09-04] MEDS ORDERED: SODIUM CHLORIDE 0.45% 1,000 ML ONE (01:59)
[2018-09-04 04:47] LABS: BASOPHILS % 0.1 % (0.0-1.0); EOSINOPHILS % 0.2 % (0.0-6.0); HEMATOCRIT 34.2 % (38.2-49.6); HEMOGLOBIN 11.3 g/dL (14.0-18.0); LYMPHOCYTES # (AUTO) 1.3 (1.0-3.2); LYMPHOCYTES % 16.3 % (18.0-39.1); MEAN CORPUSCULAR HEMOGLOBIN 31.3 pg (28-32); MEAN CORPUSCULAR VOLUME 94.7 fL (81-99); MONOCYTES # (AUTO) 0.7 (0.2-0.8); MONOCYTES % 8.3 % (4.4-11.3); NEUTROPHILS % 74.6 % (38.7-80.0); PLATELET COUNT 140 x10e3/uL (140-360); RED BLOOD COUNT 3.61 x10e6/uL (4.3-5.7); RED CELL DISTRIBUTION WIDTH 12.3 % (11.7-14.4)
[2018-09-04 05:09] LABS: ANION GAP 10.4 mmol/L (8-16); BLOOD UREA NITROGEN 28 mg/dL (7-26); BUN/CREATININE RATIO 49 (6-25); CALCIUM 8.8 mg/dL (8.4-10.2); CARBON DIOXIDE 38 mmol/L (22-29); CHLORIDE 99 mmol/L (98-107); CREATININE, SERUM 0.57 mg/dL (0.72-1.25); EST GLOMERULAR FILTRATION RATE > 60 ML/MIN (60-); GLUCOSE 93 mg/dL (74-118); MAGNESIUM 1.7 MG/DL (1.3-2.1); POTASSIUM 3.4 mmol/L (3.5-5.1); SODIUM 144 mmol/L (136-145)
[2018-09-04] MEDS: LEVOTHYROXINE SODIUM 75 MCG TAB PO SCH (06:07)
--- NOTE | 2018-09-04 06:33 | Diagnostic Imaging Report ---
CHEST SINGLE (PORTABLE), 09/04/2018 5:00 AM Technique: CHEST SINGLE (PORTABLE) Comparison: 09/03/2018. Clinical history: Pneumonia Findings: See Impression Impression: Slightly rotated portable radiograph 1. Lines/Tubes: Removal of enteric tube. Stable right IJ central venous catheter. 2. Increased complete opacification and volume loss suspicious for underlying mucus plugging/atelectasis. 3. Obscured cardiomediastinal silhouette. Signed by: Dr Angélica Allison MD on 09/04/2018 6:29 AM
[2018-09-04] MEDS: INSULIN REGULAR, HUMAN 100 UNIT/1 ML 3ML VIAL SQ SCH ×4 (07:30→22:43)
[2018-09-04] MEDS ORDERED: ALPRAZOLAM 0.5 MG TAB ONE (08:02)
[2018-09-04] MEDS: LISINOPRIL 20 MG TAB PO SCH (08:49)
[2018-09-04] MEDS: PYRIDOSTIGMINE BROMIDE 60 MG TAB PO SCH ×3 (08:49→21:04)
[2018-09-04] MEDS: PREDNISONE 20 MG TAB PO SCH (08:49)
[2018-09-04] MEDS: ATENOLOL 50 MG TAB PO SCH (08:50)
[2018-09-04] MEDS: FINASTERIDE 5 MG TAB PO SCH (08:50)
[2018-09-04] MEDS ORDERED: POTASSIUM CHLORIDE 20 MEQ TAB CR PO ONE ×2 (11:30→14:32)
[2018-09-04] MEDS: ALPRAZOLAM 0.5 MG TAB PO PRN (14:38)
[2018-09-04] MEDS: PANTOPRAZOLE SOD 40 MG TABEC PO SCH (17:31)
[2018-09-04] MEDS: SIMVASTATIN 20 MG TAB PO SCH (21:04)
[2018-09-05] VITALS (46 sets, daily range): BP systolic 107–191; BP diastolic 63–103
[2018-09-05 04:39] LABS: BASOPHILS % 0.1 % (0.0-1.0); EOSINOPHILS % 0.1 % (0.0-6.0); HEMATOCRIT 33.8 % (38.2-49.6); HEMOGLOBIN 11.2 g/dL (14.0-18.0); LYMPHOCYTES # (AUTO) 1.2 (1.0-3.2); LYMPHOCYTES % 16.2 % (18.0-39.1); MEAN CORPUSCULAR HEMOGLOBIN 31.4 pg (28-32); MEAN CORPUSCULAR HGB CONC 33.1 g/dL (31-35); MEAN CORPUSCULAR VOLUME 94.7 fL (81-99); MONOCYTES # (AUTO) 0.6 (0.2-0.8); MONOCYTES % 8.2 % (4.4-11.3); NEUTROPHILS # (AUTO) 5.5 (2.1-6.9); NEUTROPHILS % 74.6 % (38.7-80.0); PLATELET COUNT 141 x10e3/uL (140-360); RED BLOOD COUNT 3.57 x10e6/uL (4.3-5.7); RED CELL DISTRIBUTION WIDTH 12.3 % (11.7-14.4)
[2018-09-05 04:58] LABS: ALANINE AMINOTRANSFERASE 20 IU/L (0-55); ALBUMIN 2.5 g/dL (3.5-5.0); ALKALINE PHOSPHATASE 51 IU/L (40-150); ANION GAP 8.4 mmol/L (8-16); BLOOD UREA NITROGEN 27 mg/dL (7-26); BUN/CREATININE RATIO 44 (6-25); CALCIUM 8.6 mg/dL (8.4-10.2); CARBON DIOXIDE 37 mmol/L (22-29); CHLORIDE 100 mmol/L (98-107); CREATININE, SERUM 0.62 mg/dL (0.72-1.25); EST GLOMERULAR FILTRATION RATE > 60 ML/MIN (60-); GLUCOSE 109 mg/dL (74-118); POTASSIUM 3.4 mmol/L (3.5-5.1); SODIUM 142 mmol/L (136-145)
[2018-09-05] MEDS: LEVOTHYROXINE SODIUM 75 MCG TAB PO SCH (06:05)
--- NOTE | 2018-09-05 06:40 | Diagnostic Imaging Report ---
CHEST SINGLE (PORTABLE), 09/05/2018 5:00 AM Technique: CHEST SINGLE (PORTABLE) Comparison: Previous day. Clinical history: Pneumonia Findings: See Impression Impression: 1. Lines/Tubes: Stable right IJ central venous catheter. 2. Persistent complete opacification and volume loss of the left hemithorax most likely related to underlying mucus plugging/atelectasis. Mild right basilar opacity, which may reflect atelectasis or aspiration/pneumonia. 3. Obscured cardiomediastinal silhouette. Signed by: Dr Angélica Allison MD on 09/05/2018 6:37 AM
[2018-09-05] MEDS: INSULIN REGULAR, HUMAN 100 UNIT/1 ML 3ML VIAL SQ SCH ×4 (07:30→20:42)
[2018-09-05] MEDS ORDERED: POTASSIUM CHLORIDE 20 MEQ TAB CR PO STA (08:10)
[2018-09-05] MEDS: PREDNISONE 20 MG TAB PO SCH (08:13)
[2018-09-05] MEDS: PYRIDOSTIGMINE BROMIDE 60 MG TAB PO SCH ×3 (08:13→20:42)
[2018-09-05] MEDS: PANTOPRAZOLE SOD 40 MG TABEC PO SCH (08:13)
[2018-09-05] MEDS: LISINOPRIL 20 MG TAB PO SCH (08:14)
[2018-09-05] MEDS: FINASTERIDE 5 MG TAB PO SCH (08:14)
[2018-09-05] MEDS: ATENOLOL 50 MG TAB PO SCH (08:14)
[2018-09-05] MEDS: ALPRAZOLAM 0.5 MG TAB PO SCH ×2 (08:49→13:32)
--- NOTE | 2018-09-05 08:53 | Progress Note ---
DATE: September 05, 2018 PULMONARY/CRITICAL CARE PROGRESS NOTE SUBJECTIVE: Patient has been diagnosed with myasthenia gravis by neurology. He started Mestinon and prednisone. His speech and swallowing have improved with these medications. He continues to use BiPAP at night and as needed during the day. His vital capacity yesterday was 800 mL, but this morning is only 600 mL. The patient worked with physical therapy on , but has not stood up since then. He continues to have output from his suprapubic catheter. PHYSICAL EXAMINATION: VITAL SIGNS: The blood pressure is 143/85 and the pulse is 61. He is on a nasal cannula at this time. HEENT: Shows no facial swelling or erythema. The nasal mucosa is normal. The oropharynx is normal. LYMPHATIC: Shows no submandibular, cervical, or supraclavicular adenopathy. CARDIAC: Reveals a regular rate and rhythm with a normal S1 and S2. There are no murmurs or rubs. CHEST: Auscultation of lungs reveals decreased breath sounds at the bases. There is no wheezing. ABDOMEN: Soft and nontender. There is no rebound, no guarding. There is a suprapubic catheter in place. IMPRESSION: 1. Gynxe-ol-fsubuzj respiratory failure. 2. Newly diagnosed myasthenia gravis. 3. Metabolic alkalosis with superimposed respiratory acidosis. 4. Hypokalemia. 5. Pneumonia that has improved. 6. Renal mass. PLAN: 1. Continue Mestinon and prednisone. 2. Patient should be observed in the intensive care unit until the vital capacity improves. 3. Physical therapy. 4. Continue to replete potassium and other electrolytes. 5. Obtain records from prior hospital to assess the renal mass. 6. Patient will need the suprapubic catheter until he is unable to undergo a cystoscopy and further evaluation. Job#: [id number]
[2018-09-05 11:36] LABS: ABG HCO3 38 mmol/L (23-28); ABG PCO2 56 mmHg (41-51); ABG PH 7.44 (7.31-7.41); ABG PO2 86 mmHg (80-105)
[2018-09-05] MEDS ORDERED: ALPRAZOLAM 0.5 MG TAB PO ONE (19:45)
[2018-09-05] MEDS: SIMVASTATIN 20 MG TAB PO SCH (20:42)
[2018-09-06] VITALS (48 sets, daily range): BP systolic 101–162; BP diastolic 57–103
[2018-09-06] MEDS: ALPRAZOLAM 0.5 MG TAB PO SCH ×5 (00:28→23:35)
[2018-09-06 05:00] LABS: EOSINOPHILS % 0.3 % (0.0-6.0); HEMATOCRIT 32.9 % (38.2-49.6); HEMOGLOBIN 10.8 g/dL (14.0-18.0); LYMPHOCYTES # (AUTO) 1.1 (1.0-3.2); LYMPHOCYTES % 13.7 % (18.0-39.1); MEAN CORPUSCULAR HEMOGLOBIN 31.5 pg (28-32); MEAN CORPUSCULAR HGB CONC 32.8 g/dL (31-35); MEAN CORPUSCULAR VOLUME 95.9 fL (81-99); MONOCYTES # (AUTO) 0.6 (0.2-0.8); MONOCYTES % 7.4 % (4.4-11.3); NEUTROPHILS # (AUTO) 6.1 (2.1-6.9); NEUTROPHILS % 77.8 % (38.7-80.0); PLATELET COUNT 137 x10e3/uL (140-360); RED BLOOD COUNT 3.43 x10e6/uL (4.3-5.7); RED CELL DISTRIBUTION WIDTH 12.4 % (11.7-14.4)
[2018-09-06 05:23] LABS: ALANINE AMINOTRANSFERASE 21 IU/L (0-55); ALBUMIN 2.4 g/dL (3.5-5.0); ALKALINE PHOSPHATASE 46 IU/L (40-150); ANION GAP 7.6 mmol/L (8-16); BLOOD UREA NITROGEN 24 mg/dL (7-26); BUN/CREATININE RATIO 38 (6-25); CALCIUM 8.6 mg/dL (8.4-10.2); CARBON DIOXIDE 38 mmol/L (22-29); CHLORIDE 100 mmol/L (98-107); CREATININE, SERUM 0.64 mg/dL (0.72-1.25); EST GLOMERULAR FILTRATION RATE > 60 ML/MIN (60-); GLUCOSE 108 mg/dL (74-118); POTASSIUM 3.6 mmol/L (3.5-5.1); SODIUM 142 mmol/L (136-145)
[2018-09-06] MEDS: LEVOTHYROXINE SODIUM 75 MCG TAB PO SCH (06:09)
[2018-09-06] MEDS: INSULIN REGULAR, HUMAN 100 UNIT/1 ML 3ML VIAL SQ SCH ×4 (07:30→21:10)
[2018-09-06] MEDS: PANTOPRAZOLE SOD 40 MG TABEC PO SCH (07:30)
--- NOTE | 2018-09-06 07:52 | Diagnostic Imaging Report ---
CHEST SINGLE (PORTABLE), 09/06/2018 5:34 AM Technique: CHEST SINGLE (PORTABLE) Comparison: 09/05/2018 Clinical history: Pneumonia Findings: See Impression Impression: 1. Lines/Tubes: Stable right IJ central venous catheter. 2. Shift of the mediastinum to the left. Persistent complete opacification and volume loss of the left hemithorax most likely related to underlying mucus plugging/atelectasis. Mild right basilar opacity, which may reflect atelectasis or aspiration/pneumonia. 3. Likely large left pleural effusion. 4. Obscured cardiomediastinal silhouette. Signed by: Dr. Soham Hurley DO on 09/06/2018 7:49 AM
--- NOTE | 2018-09-06 09:05 | Progress Note ---
DATE: September 06, 2018 PULMONARY/CRITICAL CARE PROGRESS NOTE SUBJECTIVE: The patient is eating better. His speech has improved. He used BiPAP at night yesterday but has not required BiPAP during the day. PHYSICAL EXAMINATION VITAL SIGNS: The blood pressure is 140/81 and the pulse is 73. Saturation is 97%. HEENT: No facial swelling or erythema. The nasal mucosa is normal. The oropharynx is normal. LYMPHATIC: No submandibular, cervical, or supraclavicular adenopathy. NECK: No JVD or thyromegaly. There is no rigidity. CARDIAC: Regular rate and rhythm with a normal S1 and S2. There are no murmurs or rubs. CHEST: Auscultation of lungs reveals decreased breath sounds at the bases. ABDOMEN: Soft and nontender. There is no rebound, no guarding. EXTREMITIES: No leg edema or calf tenderness. IMPRESSIONS 1. Brteg-gn-etmwbll respiratory failure. 2. Newly diagnosed myasthenia gravis. 3. Metabolic alkalosis with superimposed respiratory acidosis. 4. Hypokalemia. 5. Hypomagnesemia. 6. Pneumonia that was present on admission but is improved. 7. Renal mass of unclear duration. 8. Acute urinary retention. PLAN 1. Continue Mestinon and prednisone. 2. Continue physical therapy. 3. BiPAP at night. 4. Transfer to medical floor. 5. Patient does not want LTAC or SNF. 6. Patient will go home with a suprapubic catheter and will have a followup cystoscopy as an outpatient. Job#: [id number]
[2018-09-06] MEDS: PREDNISONE 20 MG TAB PO SCH (09:09)
[2018-09-06] MEDS: PYRIDOSTIGMINE BROMIDE 60 MG TAB PO SCH ×3 (09:09→21:08)
[2018-09-06] MEDS: LISINOPRIL 20 MG TAB PO SCH (09:09)
[2018-09-06] MEDS: FINASTERIDE 5 MG TAB PO SCH (09:09)
[2018-09-06] MEDS: ATENOLOL 50 MG TAB PO SCH (09:10)
[2018-09-06] MEDS ORDERED: ALBUTEROL SULF 0.083% NEB SOLN 3 ML NEB NEB NR (15:00)
--- NOTE | 2018-09-06 16:35 | Diagnostic Imaging Report ---
A single frontal view of the chest. HISTORY: Left-sided atelectasis, pneumonia COMPARISON: Chest radiograph September 06, 2018 DISCUSSION: Portable technique, limits sensitivity of the exam. Marked right anterior oblique rotation markedly distorts the anatomy. Soft tissue attenuation further limits sensitivity of the exam. Overlying monitoring leads and tubes. Tubes/Lines: Similar-appearing right internal jugular catheter. Lungs and pleura: Low lung volumes result in bibasilar vascular crowding, accentuation of the pulmonary interstitial markings, central pulmonary vasculature, and the cardiac silhouette. Allowing for these limitations, the findings are as follows: Slightly improved aeration of the upper left lung. Persistent opacification of the left lower hemithorax, underlying pathology could be obscured. Heart and mediastinum: The cardiac silhouette remains obscured. Prominence of the central pulmonary vasculature. Bones: No acute osseous lesion is identified, given this limited exam. IMPRESSION: Moderate left pleural effusion with adjacent atelectasis. Improved aeration of the left upper lung. Signed by: Dr. Rich Lambert D.O., M.M.M. on 09/06/2018 4:32 PM
[2018-09-06] MEDS: ALBUTEROL SULF 0.083% NEB SOLN 3 ML NEB NEB SCH ×2 (19:20→23:05)
[2018-09-06] MEDS: SIMVASTATIN 20 MG TAB PO SCH (21:08)
--- NOTE | 2018-09-06 21:36 | Diagnostic Imaging Report ---
Examination: Single AP view of the chest. COMPARISON: Portable chest 09/06/2018 INDICATION: PICC line placement IMPRESSION: Exam limited by soft tissue attenuation and rotation. 1. Lines and Tubes: Interval placement of right-sided PICC line, with distal tip projecting at the level of the proximal SVC. Unchanged right IJ line. 2. Otherwise no significant interval change from prior exam performed same date Signed by: Dr. Alfredo Dave M.D. on 09/06/2018 9:33 PM
[2018-09-07] VITALS (45 sets, daily range): BP systolic 99–173; BP diastolic 53–119
[2018-09-07] MEDS: ALBUTEROL SULF 0.083% NEB SOLN 3 ML NEB NEB SCH ×4 (02:30→22:48)
[2018-09-07 05:26] LABS: ALANINE AMINOTRANSFERASE 19 IU/L (0-55); ALBUMIN 2.5 g/dL (3.5-5.0); ALKALINE PHOSPHATASE 49 IU/L (40-150); ANION GAP 10.8 mmol/L (8-16); BLOOD UREA NITROGEN 25 mg/dL (7-26); BUN/CREATININE RATIO 38 (6-25); CALCIUM 8.7 mg/dL (8.4-10.2); CARBON DIOXIDE 36 mmol/L (22-29); CHLORIDE 99 mmol/L (98-107); CREATININE, SERUM 0.66 mg/dL (0.72-1.25); EST GLOMERULAR FILTRATION RATE > 60 ML/MIN (60-); GLUCOSE 107 mg/dL (74-118); POTASSIUM 3.8 mmol/L (3.5-5.1); SODIUM 142 mmol/L (136-145)
[2018-09-07] MEDS: ALPRAZOLAM 0.5 MG TAB PO SCH ×4 (06:10→21:12)
[2018-09-07] MEDS: LEVOTHYROXINE SODIUM 75 MCG TAB PO SCH (06:10)
--- NOTE | 2018-09-07 06:34 | Diagnostic Imaging Report ---
EXAM: CHEST SINGLE (PORTABLE), AP 1 view INDICATION: Shortness of breath COMPARISON: AP view of the chest September 06, 2018 FINDINGS: LINES/TUBES: Stable position of right approach PICC. Interval removal of right internal jugular vein central line LUNGS: Left retrocardiac opacification. PLEURA: Possible small left pleural effusion. HEART AND MEDIASTINUM: Stable enlargement of the cardiomediastinal silhouette and central pulmonary vessels. BONES AND SOFT TISSUES: No acute findings. IMPRESSION: No interval change given rotation. Signed by: Dr. Elizabeth Smallwood M.D. on 09/07/2018 6:31 AM
[2018-09-07 07:19] LABS: BASOPHILS % 0.1 % (0.0-1.0); EOSINOPHILS % 0.1 % (0.0-6.0); HEMATOCRIT 32.8 % (38.2-49.6); HEMOGLOBIN 10.7 g/dL (14.0-18.0); LYMPHOCYTES # (AUTO) 0.9 (1.0-3.2); LYMPHOCYTES % 10.4 % (18.0-39.1); MEAN CORPUSCULAR HEMOGLOBIN 31.1 pg (28-32); MEAN CORPUSCULAR HGB CONC 32.6 g/dL (31-35); MEAN CORPUSCULAR VOLUME 95.3 fL (81-99); MONOCYTES # (AUTO) 0.5 (0.2-0.8); MONOCYTES % 6.3 % (4.4-11.3); NEUTROPHILS # (AUTO) 7.1 (2.1-6.9); NEUTROPHILS % 82.5 % (38.7-80.0); PLATELET COUNT 141 x10e3/uL (140-360); RED BLOOD COUNT 3.44 x10e6/uL (4.3-5.7); RED CELL DISTRIBUTION WIDTH 12.5 % (11.7-14.4)
[2018-09-07] MEDS: INSULIN REGULAR, HUMAN 100 UNIT/1 ML 3ML VIAL SQ SCH ×4 (07:30→21:13)
[2018-09-07] MEDS: PANTOPRAZOLE SOD 40 MG TABEC PO SCH (07:30)
[2018-09-07] MEDS ORDERED: SODIUM CHLORIDE 0.45% 1,000 ML IV ONE (08:15)
[2018-09-07] MEDS: PYRIDOSTIGMINE BROMIDE 60 MG TAB PO SCH ×3 (09:00→21:13)
[2018-09-07] MEDS: LISINOPRIL 20 MG TAB PO SCH (09:00)
[2018-09-07] MEDS: ATENOLOL 50 MG TAB PO SCH (09:00)
[2018-09-07] MEDS: PREDNISONE 20 MG TAB PO SCH (09:00)
[2018-09-07] MEDS: FINASTERIDE 5 MG TAB PO SCH (09:00)
--- NOTE | 2018-09-07 09:32 | Progress Note ---
DATE: September 07, 2018 PULMONARY/CRITICAL CARE PROGRESS NOTE SUBJECTIVE: The patient x-ray showed complete left lung atelectasis yesterday. He received aggressive chest physiotherapy with a Vest device along with an Acapella device, nebulizer treatments, and BiPAP. The left-sided atelectasis has subsequently improved and is limited to the left lower lobe. The patient is swallowing better and he is eating more. He was able to walk small distance with physical therapy yesterday. OBJECTIVE: VITAL SIGNS: The blood pressure is 133/75 and the pulse is 95% on 3 liters. The heart rate is 59. HEENT: Shows no facial swelling or erythema. The oropharynx is normal. LYMPHATIC: Shows no submandibular, cervical, or supraclavicular adenopathy. NECK: Shows no JVD or thyromegaly. There is no nuchal rigidity. CARDIAC: Reveals a regular rate and rhythm with a normal S1 and S2. There are no murmurs or rubs. CHEST: Auscultation of lungs reveals decreased breath sounds at the bases. There is no wheezing. ABDOMEN: Soft and nontender. There is no rebound, no guarding. EXTREMITIES: Shows no leg edema or calf tenderness. IMPRESSION: 1. Ocpwu-ed-ljjfysi respiratory failure. 2. Complete left-sided atelectasis of the left lung. 3. Newly diagnosed myasthenia gravis. 4. Metabolic alkalosis with superimposed respiratory acidosis. 5. Renal mass. 6. Acute urinary retention. PLAN 1. Continue observation in the intensive care unit until the vital capacity has improved. 2. Continue BiPAP at night and intermittent during the day as needed. 3. Continue chest physiotherapy with the Vest device every 8 hours, along with the Acapella treatments and incentive spirometry. 4. Continue Mestinon and prednisone. 5. Continue physical therapy. 6. Discuss renal mass with urology. 7. Patient will go home with a suprapubic catheter and will require a followup cystoscopy as an outpatient. 8. Patient does not want LTAC placement or SNF. Job#: [id number]
[2018-09-07] MEDS ORDERED: SODIUM CHLORIDE 0.45% 1,000 ML ONE (11:17)
[2018-09-07] MEDS: MECLIZINE HCL 12.5 MG TAB PO SCH (15:55)
[2018-09-07] MEDS: SIMVASTATIN 20 MG TAB PO SCH (21:13)
[2018-09-08] VITALS (47 sets, daily range): BP systolic 98–160; BP diastolic 56–109
[2018-09-08] MEDS: ALBUTEROL SULF 0.083% NEB SOLN 3 ML NEB NEB SCH ×5 (02:30→22:25)
[2018-09-08] MEDS: ALPRAZOLAM 0.5 MG TAB PO SCH ×3 (03:08→18:00)
[2018-09-08] MEDS: LEVOTHYROXINE SODIUM 75 MCG TAB PO SCH (06:00)
[2018-09-08] MEDS ORDERED: METOPROLOL SUCCINATE 25 MG TAB XL ONE (06:01)
--- NOTE | 2018-09-08 06:41 | Diagnostic Imaging Report ---
EXAM: CHEST SINGLE (PORTABLE), AP 1 view INDICATION: Left sided atelectasis COMPARISON: AP view the chest September 07, 2018 FINDINGS: LINES/TUBES: None LUNGS: Stable left retrocardiac opacification PLEURA: Indeterminate for effusion on the left HEART AND MEDIASTINUM: Stable enlargement of the cardiomediastinal silhouette with prominence of the right paratracheal stripe, likely ectatic vasculature and rotation. BONES AND SOFT TISSUES: No acute findings. IMPRESSION: No interval change in appearance of the chest. Signed by: Dr. Elizabeth Smallwood M.D. on 09/08/2018 6:38 AM
[2018-09-08] MEDS: INSULIN REGULAR, HUMAN 100 UNIT/1 ML 3ML VIAL SQ SCH ×5 (07:30→21:18)
[2018-09-08] MEDS: PANTOPRAZOLE SOD 40 MG TABEC PO SCH (07:40)
[2018-09-08] MEDS: MECLIZINE HCL 12.5 MG TAB PO SCH (08:48)
[2018-09-08] MEDS: PYRIDOSTIGMINE BROMIDE 60 MG TAB PO SCH ×3 (08:52→21:14)
[2018-09-08] MEDS: PREDNISONE 20 MG TAB PO SCH (08:52)
[2018-09-08] MEDS: LISINOPRIL 20 MG TAB PO SCH (08:53)
[2018-09-08] MEDS: ATENOLOL 50 MG TAB PO SCH (08:54)
[2018-09-08] MEDS: FINASTERIDE 5 MG TAB PO SCH (08:54)
[2018-09-08] MEDS: SIMVASTATIN 20 MG TAB PO SCH (21:14)
[2018-09-09] VITALS (40 sets, daily range): BP systolic 94–230; BP diastolic 49–128
[2018-09-09] MEDS: ALPRAZOLAM 0.5 MG TAB PO SCH ×4 (01:04→15:18)
[2018-09-09] MEDS: ALBUTEROL SULF 0.083% NEB SOLN 3 ML NEB NEB SCH ×6 (02:21→22:50)
--- NOTE | 2018-09-09 05:47 | Diagnostic Imaging Report ---
EXAM: CHEST SINGLE (PORTABLE), AP 1 view INDICATION: Left lower lobe atelectasis COMPARISON: AP view of the chest September 08, 2018 FINDINGS: LINES/TUBES: Stable appearance of right approach PICC. LUNGS: Interval complete opacification of the left lung. Atelectasis in the right mid and lower lung. PLEURA: Indeterminate for effusion on the left. HEART AND MEDIASTINUM: Cardiomediastinal silhouette is completely obscured. BONES AND SOFT TISSUES: No acute findings. IMPRESSION: Interval complete opacification of the left lung. This could be due to mucous plug, aspiration, and/or enlarging effusion. Signed by: Dr. Elizabeth Smallwood M.D. on 09/09/2018 5:44 AM
[2018-09-09] MEDS: LEVOTHYROXINE SODIUM 75 MCG TAB PO SCH (06:19)
[2018-09-09] MEDS: INSULIN REGULAR, HUMAN 100 UNIT/1 ML 3ML VIAL SQ SCH ×4 (07:30→20:50)
[2018-09-09] MEDS: PANTOPRAZOLE SOD 40 MG TABEC PO SCH (07:30)
[2018-09-09] MEDS: PYRIDOSTIGMINE BROMIDE 60 MG TAB PO SCH ×3 (09:00→20:30)
[2018-09-09] MEDS: PREDNISONE 20 MG TAB PO SCH (14:30)
[2018-09-09] MEDS: MECLIZINE HCL 12.5 MG TAB PO SCH (14:30)
[2018-09-09] MEDS: LISINOPRIL 20 MG TAB PO SCH (14:33)
[2018-09-09] MEDS: FINASTERIDE 5 MG TAB PO SCH (14:33)
[2018-09-09] MEDS: ATENOLOL 50 MG TAB PO SCH (14:34)
[2018-09-09 16:42] LABS: BASOPHILS % 0.1 % (0.0-1.0); EOSINOPHILS # (AUTO) 0.1 (0.0-0.4); EOSINOPHILS % 1.5 % (0.0-6.0); HEMATOCRIT 32.7 % (38.2-49.6); LYMPHOCYTES # (AUTO) 1.4 (1.0-3.2); LYMPHOCYTES % 16.6 % (18.0-39.1); MEAN CORPUSCULAR HEMOGLOBIN 31.8 pg (28-32); MEAN CORPUSCULAR HGB CONC 33.6 g/dL (31-35); MEAN CORPUSCULAR VOLUME 94.5 fL (81-99); MONOCYTES # (AUTO) 0.6 (0.2-0.8); MONOCYTES % 7.3 % (4.4-11.3); NEUTROPHILS # (AUTO) 6.4 (2.1-6.9); NEUTROPHILS % 73.7 % (38.7-80.0); PLATELET COUNT 168 x10e3/uL (140-360); RED BLOOD COUNT 3.46 x10e6/uL (4.3-5.7); RED CELL DISTRIBUTION WIDTH 12.3 % (11.7-14.4)
[2018-09-09 17:06] LABS: ALANINE AMINOTRANSFERASE 24 IU/L (0-55); ALBUMIN 2.4 g/dL (3.5-5.0); ALKALINE PHOSPHATASE 60 IU/L (40-150); ANION GAP 9.5 mmol/L (8-16); BLOOD UREA NITROGEN 14 mg/dL (7-26); BUN/CREATININE RATIO 24 (6-25); CALCIUM 8.6 mg/dL (8.4-10.2); CARBON DIOXIDE 35 mmol/L (22-29); CHLORIDE 99 mmol/L (98-107); CREATININE, SERUM 0.59 mg/dL (0.72-1.25); EST GLOMERULAR FILTRATION RATE > 60 ML/MIN (60-); GLUCOSE 120 mg/dL (74-118); POTASSIUM 3.5 mmol/L (3.5-5.1); SODIUM 140 mmol/L (136-145)
[2018-09-09] MEDS: SIMVASTATIN 20 MG TAB PO SCH (20:31)
[2018-09-10] VITALS (9 sets, daily range): BP systolic 126–163; BP diastolic 56–84
[2018-09-10] MEDS: ALPRAZOLAM 0.5 MG TAB PO SCH ×5 (00:38→23:52)
[2018-09-10] MEDS: ALBUTEROL SULF 0.083% NEB SOLN 3 ML NEB NEB SCH ×6 (03:50→23:00)
[2018-09-10] MEDS: LEVOTHYROXINE SODIUM 75 MCG TAB PO SCH (06:02)
--- NOTE | 2018-09-10 06:09 | Diagnostic Imaging Report ---
EXAM: CHEST SINGLE (PORTABLE), AP 1 view INDICATION: Left side atelectasis COMPARISON: AP view of the chest September 09, 2018 FINDINGS: LINES/TUBES: None LUNGS: Slight improved aeration of the left lung. PLEURA: Indeterminate for effusion on the left HEART AND MEDIASTINUM: Obscured BONES AND SOFT TISSUES: No acute findings. IMPRESSION: Slight improved aeration of the left lung with likely persistent collapse of the left lower lobe. Signed by: Dr. Elizabeth Smallwood M.D. on 09/10/2018 6:06 AM
[2018-09-10] MEDS: INSULIN REGULAR, HUMAN 100 UNIT/1 ML 3ML VIAL SQ SCH ×4 (07:30→20:49)
[2018-09-10] MEDS: PYRIDOSTIGMINE BROMIDE 60 MG TAB PO SCH ×3 (08:37→21:01)
[2018-09-10] MEDS: PREDNISONE 20 MG TAB PO SCH (08:37)
[2018-09-10] MEDS: PANTOPRAZOLE SOD 40 MG TABEC PO SCH (08:37)
[2018-09-10] MEDS: FINASTERIDE 5 MG TAB PO SCH (08:37)
[2018-09-10] MEDS: MECLIZINE HCL 12.5 MG TAB PO SCH (08:37)
[2018-09-10] MEDS: ATENOLOL 50 MG TAB PO SCH (08:38)
[2018-09-10] MEDS: LISINOPRIL 20 MG TAB PO SCH (08:38)
[2018-09-10] MEDS: SIMVASTATIN 20 MG TAB PO SCH (21:01)
[2018-09-11] VITALS (9 sets, daily range): BP systolic 110–159; BP diastolic 67–80
[2018-09-11] MEDS: ALBUTEROL SULF 0.083% NEB SOLN 3 ML NEB NEB SCH ×6 (02:00→23:45)
[2018-09-11] MEDS: LEVOTHYROXINE SODIUM 75 MCG TAB PO SCH (05:35)
[2018-09-11] MEDS: ALPRAZOLAM 0.5 MG TAB PO SCH ×4 (05:35→23:44)
[2018-09-11] MEDS: INSULIN REGULAR, HUMAN 100 UNIT/1 ML 3ML VIAL SQ SCH ×4 (07:30→21:00)
[2018-09-11] MEDS: PANTOPRAZOLE SOD 40 MG TABEC PO SCH (07:47)
[2018-09-11] MEDS: FINASTERIDE 5 MG TAB PO SCH (08:06)
[2018-09-11] MEDS: MECLIZINE HCL 12.5 MG TAB PO SCH (08:06)
[2018-09-11] MEDS: PREDNISONE 10 MG TAB PO SCH (08:06)
[2018-09-11] MEDS: PYRIDOSTIGMINE BROMIDE 60 MG TAB PO SCH ×3 (08:06→21:17)
[2018-09-11] MEDS: LISINOPRIL 20 MG TAB PO SCH (08:07)
[2018-09-11] MEDS: ATENOLOL 50 MG TAB PO SCH (08:07)
[2018-09-11] MEDS: SIMVASTATIN 20 MG TAB PO SCH (21:17)
[2018-09-12] VITALS (8 sets, daily range): BP systolic 94–156; BP diastolic 56–69
[2018-09-12] MEDS: ALBUTEROL SULF 0.083% NEB SOLN 3 ML NEB NEB SCH ×6 (03:00→23:15)
[2018-09-12] MEDS: ALPRAZOLAM 0.5 MG TAB PO SCH ×3 (05:38→17:33)
[2018-09-12] MEDS: LEVOTHYROXINE SODIUM 75 MCG TAB PO SCH (05:38)
--- NOTE | 2018-09-12 06:48 | Diagnostic Imaging Report ---
EXAM: CHEST SINGLE (PORTABLE), AP 1 view INDICATION: Left lower lobe atelectasis COMPARISON: AP view of the chest September 10, 2018 FINDINGS: LINES/TUBES: None LUNGS: Improved aeration of the left lung with persistent bibasilar atelectasis. PLEURA: Indeterminate for effusion on the left. HEART AND MEDIASTINUM: Stable appearance with deviation to the left. BONES AND SOFT TISSUES: No acute findings. IMPRESSION: Persistent atelectasis of the left lung base with improved aeration. Signed by: Dr. Elizabeth Smallwood M.D. on 09/12/2018 6:45 AM
[2018-09-12] MEDS: INSULIN REGULAR, HUMAN 100 UNIT/1 ML 3ML VIAL SQ SCH ×4 (07:30→20:04)
[2018-09-12] MEDS: PANTOPRAZOLE SOD 40 MG TABEC PO SCH ×2 (07:30→09:34)
[2018-09-12] MEDS: MECLIZINE HCL 12.5 MG TAB PO SCH (09:34)
[2018-09-12] MEDS: FINASTERIDE 5 MG TAB PO SCH (09:34)
[2018-09-12] MEDS: ATENOLOL 50 MG TAB PO SCH (09:36)
[2018-09-12] MEDS: PYRIDOSTIGMINE BROMIDE 60 MG TAB PO SCH ×3 (09:37→20:13)
[2018-09-12] MEDS: LISINOPRIL 20 MG TAB PO SCH (09:37)
[2018-09-12] MEDS: PREDNISONE 10 MG TAB PO SCH (09:37)
[2018-09-12] MEDS: SIMVASTATIN 20 MG TAB PO SCH (20:13)
[2018-09-13] VITALS (8 sets, daily range): BP systolic 118–157; BP diastolic 68–89
[2018-09-13] MEDS: ALPRAZOLAM 0.5 MG TAB PO SCH (00:06)
[2018-09-13] MEDS: ALBUTEROL SULF 0.083% NEB SOLN 3 ML NEB NEB SCH ×6 (02:15→23:45)
[2018-09-13] MEDS: LEVOTHYROXINE SODIUM 75 MCG TAB PO SCH (06:00)
[2018-09-13] MEDS: INSULIN REGULAR, HUMAN 100 UNIT/1 ML 3ML VIAL SQ SCH ×4 (07:30→21:00)
[2018-09-13] MEDS ORDERED: MIDAZOLAM HCL 2 MG/2 ML VIAL ONE (09:34)
[2018-09-13] MEDS ORDERED: LIDOCAINE HCL 2% LOCAL 20 ML VIAL ONE (09:35)
[2018-09-13] MEDS ORDERED: FENTANYL CITRATE/PF 100MCG/2 ML INJ ONE (09:35)
[2018-09-13] MEDS ORDERED: IOPAMIDOL 300MG/ML 100 ML INFUS..BTL IV ONE (09:35)
[2018-09-13] MEDS ORDERED: SODIUM CHLORIDE 0.9% 500ML 1,000 ML ONE (09:35)
[2018-09-13] MEDS: PANTOPRAZOLE SOD 40 MG TABEC PO SCH (10:54)
[2018-09-13] MEDS: PYRIDOSTIGMINE BROMIDE 60 MG TAB PO SCH ×3 (10:54→19:40)
[2018-09-13] MEDS: FINASTERIDE 5 MG TAB PO SCH (11:00)
[2018-09-13] MEDS: MECLIZINE HCL 12.5 MG TAB PO SCH (11:00)
[2018-09-13] MEDS: LISINOPRIL 20 MG TAB PO SCH (11:01)
[2018-09-13] MEDS: ATENOLOL 50 MG TAB PO SCH (11:01)
[2018-09-13] MEDS ORDERED: POTASSIUM CHLORIDE 20 MEQ TAB CR PO NR (11:30)
[2018-09-13] MEDS ORDERED: PREDNISONE 10 MG TAB PO NR (11:30)
[2018-09-13] MEDS: PREDNISONE 10 MG TAB PO SCH (14:47)
[2018-09-13] MEDS: ALPRAZOLAM 0.5 MG TAB PO PRN ×2 (14:50→19:40)
[2018-09-13] MEDS: SIMVASTATIN 20 MG TAB PO SCH (19:40)
[2018-09-14] MEDS: INSULIN REGULAR, HUMAN 100 UNIT/1 ML 3ML VIAL SQ SCH ×3 (00:30→11:30)
[2018-09-14 00:40] VITALS: BP 129/65
[2018-09-14] MEDS: ALBUTEROL SULF 0.083% NEB SOLN 3 ML NEB NEB SCH ×3 (03:00→11:24)
[2018-09-14] MEDS: ALPRAZOLAM 0.5 MG TAB PO PRN ×2 (03:36→12:52)
[2018-09-14] MEDS: LEVOTHYROXINE SODIUM 75 MCG TAB PO SCH (06:40)
[2018-09-14 07:14] VITALS: BP 127/60
[2018-09-14] MEDS: PANTOPRAZOLE SOD 40 MG TABEC PO SCH (08:09)
[2018-09-14] MEDS: MECLIZINE HCL 12.5 MG TAB PO SCH (08:09)
[2018-09-14] MEDS: PYRIDOSTIGMINE BROMIDE 60 MG TAB PO SCH ×2 (08:09→13:39)
[2018-09-14] MEDS: LISINOPRIL 20 MG TAB PO SCH (08:09)
[2018-09-14] MEDS: ATENOLOL 50 MG TAB PO SCH (08:09)
[2018-09-14] MEDS: FINASTERIDE 5 MG TAB PO SCH (08:09)
[2018-09-14 08:30] VITALS: BP 127/60
[2018-09-14 11:54] VITALS: BP 149/65
--- NOTE | 2018-09-14 13:57 | Diagnostic Imaging Report ---
Procedure: Suprapubic catheter exchange Medications: Versed 1 mg intravenous, Fentanyl 50 mcg intravenous. The patient's vital signs, including pulse oximetry, were continuously monitored by the interventional radiology nurse. Fluoroscopy time: 3.1 minutes. Dose area product: 1828.8 cGycm2 Contrast used: 15 cc of Isovue-300. Estimated blood loss: Minimal. Complications: No immediate. Procedure in detail: Sterile preparation and local anesthesia with 1% Xylocaine was accomplished. The indwelling 14 Mosotho [place] suprapubic catheter was injected with contrast material confirming appropriate position within the bladder lumen. The retention flanges of the Malecot catheter were reduced over a 0.035 " Amplatz superstiff and the catheter was removed. Dilatation with a 16 Mosotho dilator was accomplished. Then a high pressure angioplasty balloon 8 mm x 8 cm was placed into the tract and several dilatations accomplished. Attempt was then made to place the 16 Mosotho [place] tip Ramirez catheter. This was unsuccessful. Dilatation with a 20 Mosotho dilator was then accomplished and the Ramirez catheter able to be placed over the wire after removal of the dilator. Retention balloon was then inflated with 8 cc of saline. Catheter was secured to the skin with 3-0 Ethilon. Patient tolerated the procedure well. Impression: Successful exchange of a 14 Mosotho suprapubic [place]ot catheter for a 16 Mosotho [place] tip Ramirez catheter. Signed by: Dr. Soham Hurley DO on 09/13/2018 1:57 PM
[2018-09-14 15:43] VITALS: BP 155/71
--- NOTE | 2018-10-21 14:51 | Discharge Summary ---
DISCHARGE DIAGNOSES 1. Acute respiratory failure secondary to neuromuscular weakness. 2. Myasthenia gravis (new diagnosis). 3. Urinary retention secondary to prostatic hypertrophy. 4. Renal mass and possible renal cell carcinoma. 5. Benign prostatic hypertrophy. 6. Left lung atelectasis secondary to neuromuscular weakness. CONSULTING PHYSICIANS 1. Drs. Kay and Rolly of urology. 2. Dr. Miguelina Glynn of neurology. 3. Dr. Lawrence of endocrinology. 4. Dr. Garay of cardiology. 5. Dr. Recinos of oncology. RADIOGRAPHIC STUDIES: Chest x-rays initially were normal but then showed a left lung atelectasis that subsequently resolved with chest physiotherapy. CT scan of the abdomen and pelvis showed a 2.5-cm renal mass as well as an enlarged prostate and some urinary retention. HISTORY OF PRESENT ILLNESS: The patient is a 77-year-old man. He originally came to the emergency department because of irritation in his eyes that was not resolving despite having seen the automotive parts manager. He also reported some weakness in his voice and some fatigue. While in the emergency department, he became hypotensive and apneic and had to be emergently intubated. HOSPITAL COURSE: The patient was admitted. He was subsequently weaned from the ventilator and did well. He still complained of weakness and fatigue. Several days later, he had a sudden attack of apnea and had to be reintubated emergently. Subsequent evaluation by neurology showed extraocular muscle weakness consistent with myasthenia gravis. He was started on corticosteroids as well as Mestinon. He improved with this and was able to do well on his spontaneous breathing trials. He was subsequently extubated. The patient continued on intermittent BiPAP and BiPAP at night. He did have some left lung atelectasis. He was originally scheduled for a bronchoscopy, but the patient decided against the procedure. He was subsequently treated with chest physiotherapy and a vest device. He received a flutter valve, and his atelectasis improved. The patient's hospital course was also complicated by urinary retention. Urology was unable to place a Ramirez. He had a suprapubic catheter placed. The patient had some physical therapy. He was also continued on his thyroid medicine. He gradually improved and was stronger at the time of discharge. DISPOSITION: The patient will be discharged home. He will follow up with Dr. Rice as well as Dr. Kay of urology and with neurology. MAMTA FREEMAN MD Job#: [id number] CC: DR. RICE
[2018-10-27] MEDS ORDERED: PYRIDOSTIGMINE60 MG PO (15:24)
== END 2018-09-14 15:47 | disposition home health service (06) | DRG 207 ==
LOC: ER 10:06 → ERHOLD 11:49 → ICU 18:43 → OBSVTOIN 08-26 10:16 → IMCU 09-09 17:56
PROVIDERS: ADMIT Internal Medicine Critical Care Medicine; ATTEND Internal Medicine Critical Care Medicine
PROC: 0BH17EZ Insertion of Endotracheal Airway into Trachea, Via Natural or Artificial Opening (ICD-10-PCS; principal; 2018-08-26)
PROC: 5A1955Z Respiratory Ventilation, Greater than 96 Consecutive Hours (ICD-10-PCS; 2018-08-26)
PROC: 02HV33Z Insertion of Infusion Device into Superior Vena Cava, Percutaneous Approach (ICD-10-PCS; 2018-08-26)
PROC: 0T9B30Z Drainage of Bladder with Drainage Device, Percutaneous Approach (ICD-10-PCS; 2018-08-28)
PROC: 02HV33Z Insertion of Infusion Device into Superior Vena Cava, Percutaneous Approach (ICD-10-PCS; 2018-09-06)
PROC: 0T9B30Z Drainage of Bladder with Drainage Device, Percutaneous Approach (ICD-10-PCS; 2018-09-13)
DX: J18.9 Pneumonia, unspecified organism (principal); J96.21 Acute and chronic respiratory failure with hypoxia; G70.01 Myasthenia gravis with (acute) exacerbation; N17.9 Acute kidney failure, unspecified; E87.4 Mixed disorder of acid-base balance; E27.40 Unspecified adrenocortical insufficiency; J44.0 Chronic obstructive pulmonary disease with (acute) lower respiratory infection; J44.1 Chronic obstructive pulmonary disease with (acute) exacerbation; C64.1 Malignant neoplasm of right kidney, except renal pelvis; J69.0 Pneumonitis due to inhalation of food and vomit; F41.9 Anxiety disorder, unspecified; E78.5 Hyperlipidemia, unspecified; R13.10 Dysphagia, unspecified; Z88.0 Allergy status to penicillin; Z91.013 Allergy to seafood; H02.403 Unspecified ptosis of bilateral eyelids; I10 Essential (primary) hypertension; N28.1 Cyst of kidney, acquired; R97.20 Elevated prostate specific antigen [PSA]; E03.9 Hypothyroidism, unspecified; H10.9 Unspecified conjunctivitis; R33.9 Retention of urine, unspecified; E83.42 Hypomagnesemia; E77.8 Other disorders of glycoprotein metabolism; E16.2 Hypoglycemia, unspecified; N40.1 Benign prostatic hyperplasia with lower urinary tract symptoms; Z88.1 Allergy status to other antibiotic agents; R33.8 Other retention of urine
CPT/HCPCS: 31500; 36415; 36555; 36569; 36600; 43752; 51102; 51700; 51710; 70470; 71045; 71046; 71260; 74018; 74177; 74230; 74470; 75984; 76942; 77002; 80048; 80053; 81001; 82024; 82088; 82103; 82533; 82550; 82553; 82805; 82948; 83001; 83003; 83519; 83605; 83615; 83735; 83880; 84100; 84146; 84402; 84439; 84443; 84484; 85025; 85610; 85730; 86255; 86256; 87040; 87070; 87205; 93005; 93306; 94002; 94003; 94640; 94660; 94667; 94668; 96361; 96372; 97139; 99285; C1725; C1769; G0378; J0330; J0456; J0696; J1720; J1940; J2001; J2060; J2250; J3370; J3475; J3480; J7030; J7040; J7050; J7512; Q9967

== ENCOUNTER → 2018-10-28 | Day surgery (SDC) | payer MEDICARE ==
[~2018-10-28] MED LIST: ALPRAZOLAM2 MG PO; ATENOLOL-CHLOR1 EACH PO; CRESTOR10 MG PO; EPHEDRINE SULFATE INJ 50 MG/10 ML SYR ONE; FENTANYL CITRATE/PF 100MCG/2 ML INJ ONE; FINASTERIDE5 MG PO; IOPAMIDOL 610MG/1ML 300 MG/ML VIAL IV ONE; LEVOFLOXACIN 500MG/D5W 100ML 100 ML IV ONE; LEVOTHYROXINE150 MCG PO; LIDOCAINE HCL 2% LOCAL INJ 5 ML SDV VIAL INJ ONE; LISINOPRIL20 MG PO; PROPOFOL IV EMULSION 10 MG/ML 20 ML VIAL ONE; PYRIDOSTIGMINE60 MG PO; SEVOFLURANE INHAL SOLN 250 ML PEN BTL ONE
[2018-10-28 08:45] VITALS: BP 140/72
--- NOTE | 2018-10-28 11:46 | Operative Report ---
DATE OF PROCEDURE: October 28, 2018 PREOPERATIVE DIAGNOSES 1. Severe urethral stricture disease. 2. Suprapubic tube. 3. BPH. POSTOPERATIVE DIAGNOSES 1. Severe urethral stricture disease. 2. Suprapubic tube. 3. BPH. PROCEDURES 1. Retrograde urethrogram and cystogram. 2. Cystourethroscopy with urethral dilation. ANESTHESIA: General. ESTIMATED BLOOD LOSS: Minimal. COMPLICATIONS: None. INDICATIONS: Mr. Liu is a 78-year-old male patient who had myocardial infarction and was admitted to the hospital. Had a urethral stricture with an impassable Ramirez catheter and suprapubic tube placement. Attempts were made to remove the suprapubic tube and place a Ramirez catheter. He voiced understanding of the options, alternatives, risks, and benefits and elected to proceed. PROCEDURE IN DETAIL: After informed consent was obtained, the patient was preoperatively identified and placed on the operating table, and placed in the dorsal lithotomy position, and sterilely prepped and draped for cystoscopy. A 21-Bulgarian cystoscope was inserted into the distal urethra. Retrograde urethrogram was performed and revealed a normal distal urethra. There were multifocal bulbar urethral strictures and almost complete obliteration just proximal to the level of the prostate. No contrast could be made to flow proximally The cystoscope was advanced in this area. There was a pit seen. The filiform was introduced and coiled in the typical location for the bladder. This was then dilated. The cystoscope was then advanced through the dilated area into the bladder where the suprapubic tube could be seen. At this time, the cystoscope was removed. The suprapubic tube was clamped and the bladder was left full. The [place]-tipped catheter was advanced over the filiform into the bladder. Cystogram was taken confirming the images. The suprapubic tube was then removed and dressed. At this time, the Ramirez catheter was placed to drainage. The patient was awakened from anesthesia and transported to the recovery room in excellent condition. INTERPRETATION OF RETROGRADE URETERAL PYELOGRAPHY AND CYSTOGRAM: I was present throughout the entire procedure and I supervised the use of fluoroscopy, the cystogram and retrograde urethrogram. No radiologist present. Retrograde urethrogram was performed revealing a normal appearing distal urethra, multifocal bulbar urethral strictures with complete obliteration of the prostate. Suprapubic tube was in adequate position. Ramirez catheter was in adequate position. Intramural removal of suprapubic tube. Job#: [id number] RI ARI
== END | disposition home or self-care (01) ==
LOC: OR 05:11
PROVIDERS: ATTEND Urology
DX: N35.912 Unspecified bulbous urethral stricture, male (principal); Z43.5 Encounter for attention to cystostomy; N42.89 Other specified disorders of prostate; N40.1 Benign prostatic hyperplasia with lower urinary tract symptoms; R35.1 Nocturia; N43.40 Spermatocele of epididymis, unspecified; N52.9 Male erectile dysfunction, unspecified; R06.09 Other forms of dyspnea; Z99.81 Dependence on supplemental oxygen; G47.33 Obstructive sleep apnea (adult) (pediatric); I10 Essential (primary) hypertension; Z88.0 Allergy status to penicillin; Z87.442 Personal history of urinary calculi; Z85.46 Personal history of malignant neoplasm of prostate
CPT/HCPCS: 52281; 74430; J1956; J2001; J2704; Q9967

== ENCOUNTER 2020-06-05 02:41 | Inpatient (IN) | payer MEDICARE, OTHER ==
[~2020-06-05] VITALS: Ht 170.2 cm; Wt 86.3 kg
[~2020-06-05 02:41] MED LIST changes: -EPHEDRINE SULFATE INJ 50 MG/10 ML SYR ONE; -FENTANYL CITRATE/PF 100MCG/2 ML INJ ONE; -IOPAMIDOL 610MG/1ML 300 MG/ML VIAL IV ONE; -LEVOFLOXACIN 500MG/D5W 100ML 100 ML IV ONE; -LIDOCAINE HCL 2% LOCAL INJ 5 ML SDV VIAL INJ ONE; -PROPOFOL IV EMULSION 10 MG/ML 20 ML VIAL ONE; -SEVOFLURANE INHAL SOLN 250 ML PEN BTL ONE
[2020-06-05 02:51] LABS: BASOPHILS % 0.4 % (0.0-1.0); EOSINOPHILS # (AUTO) 0.1 (0.0-0.4); EOSINOPHILS % 0.8 % (0.0-6.0); HEMATOCRIT 44.6 % (38.2-49.6); HEMOGLOBIN 14.7 g/dL (14.0-18.0); LYMPHOCYTES # (AUTO) 2.5 (1.0-3.2); LYMPHOCYTES % 21.9 % (18.0-39.1); MEAN CORPUSCULAR HEMOGLOBIN 29.9 pg (28-32); MEAN CORPUSCULAR VOLUME 90.7 fL (81-99); NEUTROPHILS # (AUTO) 7.6 (2.1-6.9); NEUTROPHILS % 67.3 % (38.7-80.0); PLATELET COUNT 239 x10e3/uL (140-360); RED BLOOD COUNT 4.92 x10e6/uL (4.3-5.7); RED CELL DISTRIBUTION WIDTH 13.3 % (11.7-14.4)
[2020-06-05 02:59] LABS: INR 0.91; PROTHROMBIN TIME 12.7 seconds (11.9-14.5)
[2020-06-05 03:00] LABS: PARTIAL THROMBOPLASTIN TIME 31.5 seconds (23.8-35.5)
[2020-06-05] MEDS ORDERED: ASPIRIN 81 MG CHEW TAB PO ONE (03:00)
--- NOTE | 2020-06-05 03:01 | Emergency Department Note ---
History of Present Illnes History of Present Illness Chief Complaint: Chest Pain History of Present Illness This is a 79 year old male brought in by EMS for c/o intermittent chest pain times 3 days. Patient states he was watching the news when the pain started again. EMS administered 324 aspirin and a nitro spray. Patient on 2L NC at this time. Patient states he wears oxygen at home. No distress noted. Patient denies fever at home. Pt denies cough, sob, pt is poor historian, can't tell me why is on home oxygen . Historian: Patient Arrival Mode: [facility] Treatment ADJUNCT PHYSICS INSTRUCTOR: O2, Aspirin, See EMS Report Additional Treatment ADJUNCT PHYSICS INSTRUCTOR: nitro spray Onset (how long ago): day(s) (3) Location: chest Quality: pain Radiation: Reports non-radiation Severity: moderate Onset quality: sudden Duration (how long): day(s) (3) Timing of current episode: intermittent Progression: waxing and waning Chronicity: new Context: Denies recent illness, Denies recent surgery Relieving factors: none Exacerbating factors: none Associated symptoms: Reports denies other symptoms Past Medical/Family History Physician Review I have reviewed the patient's past medical and family history. Any updates have been documented here. Past Medical History Recent Fever: No Clinical Suspicion of Infectio: No New/Unexplained Change in Ment: No Past Medical History: Hypertension, Hypothyroidism, Hyperlipedemia Other Medical History: BPH myastenia gravis Past Surgical History: None Other Surgery: REPORTS NONE Social History Smoking Cessation: Never Smoker Alcohol Use: None Any Illegal Drug Use: No Family History Family history of heart diseas: No Other family history htn Other Last Tetanus: Unknown Review of Systems Review of Systems Constitutional: Reports no symptoms EENTM: Reports no symptoms Cardiovascular: Reports as per HPI Respiratory: Reports no symptoms Gastrointestinal: Reports no symptoms Genitourinary: Reports no symptoms Musculoskeletal: Reports no symptoms Integumentary: Reports no symptoms Neurological: Reports no symptoms Psychological: Reports no symptoms Endocrine: Reports no symptoms Hematological/Lymphatic: Reports no symptoms Physical Exam Related Data Allergies: Coded Allergies: vancomycin (Verified Allergy, Mild, RASH, HIVES, 08/25/18) Influenza Virus Vaccines (Verified Allergy, Unknown, 08/25/18) Penicillins (Verified Allergy, Unknown, 08/25/18) Triage Vital Signs Vital Signs Date Time Temp Pulse Resp B/P (MAP) Pulse Ox O2 Delivery O2 Flow Rate FiO2 06/05/20 02:51 99.8 73 22 172/95 100 Nasal Cannula 2.0 Vital signs reviewed: Yes Physical Exam CONSTITUTIONAL Constitutional: Present well-developed, Present well-nourished HENT HENT: Present normocephalic, Present atraumatic, Present oropharynx clear/moist, Present nose normal HENT L/R: Present left ext ear normal, Present right ext ear normal EYES Eyes: Reports PERRL, Reports conjunctivae normal NECK Neck: Present ROM normal PULMONARY Pulmonary: Present effort normal, Present breath sounds normal CARDIOVASCULAR Cardiovascular: Present regular rhythm, Present heart sounds normal, Present capillary refill normal, Present normal rate GASTROINTESTINAL Abdominal: Present soft, Present nontender, Present bowel sounds normal GENITOURINARY Genitourinary: Present exam deferred SKIN Skin: Present warm, Present dry MUSCULOSKELETAL Musculoskeletal: Present ROM normal NEUROLOGICAL Neurological: Present alert, Present oriented x 3, Present no gross motor or sensory deficits PSYCHOLOGICAL Psychological: Present other (pt with flight of ideas, paranoa) Results Laboratory Result Diagram: 06/05/20 0245 Laboratory Laboratory Tests Test 06/05/20 05:18 06/05/20 02:45 Urine Color Yellow (YELLOW) Urine Clarity Cloudy (CLEAR) Urine pH 6 (5 - 7) Urine Specific [place] 1.025 (1.010-1.025) Urine Protein >=300 (NEGATIVE) Urine Glucose (UA) 1+ (NEGATIVE) Urine Ketones Negative (NEGATIVE) Urine Blood Moderate (NEGATIVE) Urine Nitrite Positive (NEGATIVE) Urine Bilirubin Negative (NEGATIVE) Urine Urobilinogen 0.2 mg/dL (0.2 - 1) Urine Leukocyte Esterase Small (NEGATIVE) Urine RBC 11-20 /HPF (0-5) Urine WBC 11-20 /HPF (0-5) Urine Epithelial Cells Few /LPF (NONE) Urine Bacteria Moderate /HPF (NONE) White Blood Count 11.27 x10e3/uL (4.8-10.8) Red Blood Count 4.92 x10e6/uL (4.3-5.7) Hemoglobin 14.7 g/dL (14.0-18.0) Hematocrit 44.6 % (38.2-49.6) Mean Corpuscular Volume 90.7 fL (81-99) Mean Corpuscular Hemoglobin 29.9 pg (28-32) Mean Corpuscular Hemoglobin Concent 33.0 g/dL (31-35) Red Cell Distribution Width 13.3 % (11.7-14.4) Platelet Count 239 x10e3/uL (140-360) Neutrophils (%) (Auto) 67.3 % (38.7-80.0) Lymphocytes (%) (Auto) 21.9 % (18.0-39.1) Monocytes (%) (Auto) 9.0 % (4.4-11.3) Eosinophils (%) (Auto) 0.8 % (0.0-6.0) Basophils (%) (Auto) 0.4 % (0.0-1.0) Neutrophils # (Auto) 7.6 (2.1-6.9) Lymphocytes # (Auto) 2.5 (1.0-3.2) Monocytes # (Auto) 1.0 (0.2-0.8) Eosinophils # (Auto) 0.1 (0.0-0.4) Basophils # (Auto) 0.0 (0.0-0.1) Absolute Immature Granulocyte (auto 0.07 x10e3/uL (0-0.1) Prothrombin Time 12.7 seconds (11.9-14.5) Prothromb Time International Ratio 0.91 Activated Partial Thromboplast Time 31.5 seconds (23.8-35.5) Sodium Level 141 mmol/L (136-145) Potassium Level 3.1 mmol/L (3.5-5.1) Chloride Level 99 mmol/L (98-107) Carbon Dioxide Level 29 mmol/L (22-29) Anion Gap 16.1 mmol/L (8-16) Blood Urea Nitrogen 18 mg/dL (7-26) Creatinine 1.06 mg/dL (0.72-1.25) Estimat Glomerular Filtration Rate > 60 ML/MIN (60-) BUN/Creatinine Ratio 17 (6-25) Glucose Level 192 mg/dL (74-118) Calcium Level 9.3 mg/dL (8.4-10.2) Total Bilirubin 1.9 mg/dL (0.2-1.2) Aspartate Amino Transf (AST/SGOT) 13 IU/L (5-34) Alanine Aminotransferase (ALT/SGPT) 17 IU/L (0-55) Alkaline Phosphatase 91 IU/L (40-150) Creatine Kinase 32 IU/L (30-200) Creatine Kinase MB 1.30 ng/mL (0-5.0) Troponin I 0.068 ng/mL (0-0.300) B-Type Natriuretic Peptide 120.9 pg/mL (0-100) Total Protein 7.7 g/dL (6.5-8.1) Albumin 3.5 g/dL (3.5-5.0) Globulin 4.2 g/dL (2.3-3.5) Albumin/Globulin Ratio 0.8 (0.8-2.0) Laboratory Tests Test 06/05/20 02:45 White Blood Count 11.27 x10e3/uL (4.8-10.8) Red Blood Count 4.92 x10e6/uL (4.3-5.7) Hemoglobin 14.7 g/dL (14.0-18.0) Hematocrit 44.6 % (38.2-49.6) Mean Corpuscular Volume 90.7 fL (81-99) Mean Corpuscular Hemoglobin 29.9 pg (28-32) Mean Corpuscular Hemoglobin Concent 33.0 g/dL (31-35) Red Cell Distribution Width 13.3 % (11.7-14.4) Platelet Count 239 x10e3/uL (140-360) Neutrophils (%) (Auto) 67.3 % (38.7-80.0) Lymphocytes (%) (Auto) 21.9 % (18.0-39.1) Monocytes (%) (Auto) 9.0 % (4.4-11.3) Eosinophils (%) (Auto) 0.8 % (0.0-6.0) Basophils (%) (Auto) 0.4 % (0.0-1.0) Neutrophils # (Auto) 7.6 (2.1-6.9) Lymphocytes # (Auto) 2.5 (1.0-3.2) Monocytes # (Auto) 1.0 (0.2-0.8) Eosinophils # (Auto) 0.1 (0.0-0.4) Basophils # (Auto) 0.0 (0.0-0.1) Absolute Immature Granulocyte (auto 0.07 x10e3/uL (0-0.1) Prothrombin Time 12.7 seconds (11.9-14.5) Prothromb Time International Ratio 0.91 Activated Partial Thromboplast Time 31.5 seconds (23.8-35.5) Sodium Level 141 mmol/L (136-145) Potassium Level 3.1 mmol/L (3.5-5.1) Chloride Level 99 mmol/L (98-107) Carbon Dioxide Level 29 mmol/L (22-29) Anion Gap 16.1 mmol/L (8-16) Blood Urea Nitrogen 18 mg/dL (7-26) Creatinine 1.06 mg/dL (0.72-1.25) Estimat Glomerular Filtration Rate > 60 ML/MIN (60-) BUN/Creatinine Ratio 17 (6-25) Glucose Level 192 mg/dL (74-118) Calcium Level 9.3 mg/dL (8.4-10.2) Total Bilirubin 1.9 mg/dL (0.2-1.2) Aspartate Amino Transf (AST/SGOT) 13 IU/L (5-34) Alanine Aminotransferase (ALT/SGPT) 17 IU/L (0-55) Alkaline Phosphatase 91 IU/L (40-150) Creatine Kinase 32 IU/L (30-200) Creatine Kinase MB 1.30 ng/mL (0-5.0) Troponin I 0.068 ng/mL (0-0.300) B-Type Natriuretic Peptide 120.9 pg/mL (0-100) Total Protein 7.7 g/dL (6.5-8.1) Albumin 3.5 g/dL (3.5-5.0) Globulin 4.2 g/dL (2.3-3.5) Albumin/Globulin Ratio 0.8 (0.8-2.0) Laboratory Tests Test 06/05/20 02:45 White Blood Count 11.27 x10e3/uL (4.8-10.8) Red Blood Count 4.92 x10e6/uL (4.3-5.7) Hemoglobin 14.7 g/dL (14.0-18.0) Hematocrit 44.6 % (38.2-49.6) Mean Corpuscular Volume 90.7 fL (81-99) Mean Corpuscular Hemoglobin 29.9 pg (28-32) Mean Corpuscular Hemoglobin Concent 33.0 g/dL (31-35) Red Cell Distribution Width 13.3 % (11.7-14.4) Platelet Count 239 x10e3/uL (140-360) Neutrophils (%) (Auto) 67.3 % (38.7-80.0) Lymphocytes (%) (Auto) 21.9 % (18.0-39.1) Monocytes (%) (Auto) 9.0 % (4.4-11.3) Eosinophils (%) (Auto) 0.8 % (0.0-6.0) Basophils (%) (Auto) 0.4 % (0.0-1.0) Neutrophils # (Auto) 7.6 (2.1-6.9) Lymphocytes # (Auto) 2.5 (1.0-3.2) Monocytes # (Auto) 1.0 (0.2-0.8) Eosinophils # (Auto) 0.1 (0.0-0.4) Basophils # (Auto) 0.0 (0.0-0.1) Absolute Immature Granulocyte (auto 0.07 x10e3/uL (0-0.1) Lab results reviewed: Yes Imaging Imaging results reviewed: Yes Impressions Procedure: [id number] DX/CHEST SINGLE (PORTABLE) Exam Date: Exam Time: REPORT STATUS: Signed EXAMINATION: CHEST SINGLE (PORTABLE) INDICATION: Chest pain COMPARISON: None FINDINGS: TUBES and LINES: None. LUNGS: Low lung volumes. Subtle reticular opacities in the right lower lung. Left hemidiaphragm obscured. Prominent central pulmonary vasculature. PLEURA: No pleural effusion or pneumothorax. HEART AND MEDIASTINUM: Cardiac size is mildly enlarged. BONES AND SOFT TISSUES: No acute osseous lesion. Soft tissues are unremarkable. UPPER ABDOMEN: No free air under the diaphragm. IMPRESSION: Low lung volumes. Subtle reticular opacities in the right lower lung. Lung evaluation limited due to low lung volumes, radiographic technique, and patient body habitus. Mild cardiomegaly and pulmonary vascular congestion. Signed by: Dave Rogers DO on 06/05/2020 4:06 AM Dictated By: DAVE ROGERS DO 5 Transcribed By: MITZY on 06/05/20405 COPY TO: LULU FERNANDEZ MD~ Procedure: [id number] CT/CT BRAIN WO Exam Date: 06/05/20 Exam Time: 0405 REPORT STATUS: Signed EXAMINATION: Head CT HISTORY: Paranoia, flight of ideas COMPARISON: Head CT 08/27/2018. TECHNIQUE: Helical axial images of the head were obtained. Reformatted coronal and sagittal images from the axial data. Dose modulation, iterative reconstruction, and/or weight based adjustment of the mA/kV was utilized to reduce the radiation dose to as low as reasonably achievable. Image quality: Motion/streaking artifact limits the evaluation of the skull base and posterior cranial fossa. FINDINGS: Parenchyma: 1. Few scattered and mildly confluent periventricular hypodensities, most likely nonspecific chronic microvascular ischemic changes. 2. No mass or hemorrhage. No CT evidence of acute territorial vascular insult. Extra-axial spaces:No abnormal density. No extra-axial fluid collections Brain volume: Normal for age. Ventricles: No hydrocephalus or displacement. 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 Dural sinuses: No abnormal density. Foramen magnum: No mass, Chiari malformation, or basilar invagination. Sella: No obvious mass. Paranasal/mastoid sinuses: New complete opacification of the right mastoid air cells and middle ear, no discrete nasopharyngeal mass. Skull/Scalp: No lytic or blastic lesions. No fractures. IMPRESSION: 1. No acute intracranial abnormalities. 2. Mild chronic microvascular ischemic changes. 3. Atherosclerosis and vertebrobasilar dolichoectasia, unchanged from head CT of 08/27/2018. 4. New opacification of the right mastoid air cells and middle ear since prior head CT, nonemergent ENT evaluation is advised. Signed by: Dr. Isaac Castillo M.D. on 06/05/2020 5:31 AM Dictated By: ISAAC CASTILLO MD 0 Transcribed By: MITZY on 06/05/20530 COPY TO: LULU FERNANDEZ MD~ Imaging Comments I SPOKE WITH DR ROGERS ABOUT CXR FINDINGS, HE STATES SCARRING WAS PRESENT IN RLL ON PREVIOUS CT CHEST. Procedures 12 Lead ECG Interpretation ECG Interpretation : ECG: ECG 1 Pattern Drum Maker: Interpreted by ED physician Date: Jun 05, 2020 Time: 02:39 Rhythm: sinus rhythm Ectopy: infrequent PVC's Rate: normal BPM: 73 QRS axis: normal ST segments normal: Yes T waves normal: Yes Clinical Impression: non-specific ECG Assessment & Plan Medical Decision Making MDM pt with intermittent chest pain for 3 days cbc, cmp, ekg, cardiac enzymes, cxr, pt/ptt, bnp ordered to eval for myocardial infarction, pneumonia, pulmonary edema, electrolyte abnormality, I SPOKE WITH DR Isrrael FREEMAN FOR ADMISSION, ADMIT INPATIENT Assessment & Plan Final Impression: (1) UTI (urinary tract infection) (2) Chest pain (3) AMS (altered mental status) Depart Disposition: ADMITTED Last Vital Signs Date Time Temp Pulse Resp B/P (MAP) Pulse Ox O2 Delivery O2 Flow Rate FiO2 06/05/20 02:51 99.8 73 22 172/95 100 Nasal Cannula 2.0 Home Meds Reported Medications Sulfamethoxazole/Trimethoprim (BACTRIM DS TABLET) 1 Each Tablet, 1 TAB PO BID, #60 TAB 06/05/20 Furosemide (FUROSEMIDE) 40 Mg Tablet, 40 MG PO Daily, #30 TAB 06/05/20 Trazodone Hcl (TRAZODONE HCL) 50 Mg Tablet, 50 MG PO HS, #30 TAB 06/05/20 Rosuvastatin Calcium (CRESTOR) 10 Mg Tab, 10 MG PO DAILY THERAPEUTICALLY SUBSTITUTED WITH SIMVASTATIN 40MG 06/05/20 Pyridostigmine Jordan (PYRIDOSTIGMINE BROMIDE) 60 Mg Tablet, 60 MG PO TID 10/27/18 Lisinopril (PRINAVIL / ZESTRIL) 20 Mg Tablet, 1 TAB PO BID 08/25/18 Atenolol/Chlorthalidone (ATENOLOL-CHLORTHALIDONE 100-25) 1 Each Tablet, 1 TAB PO BID 08/25/18 Finasteride (FINASTERIDE) 5 Mg Tablet, 5 MG PO DAILY 08/25/18 Alprazolam (ALPRAZOLAM) 2 Mg Tablet, 1 MG PO HS 08/25/18 Levothyroxine Sodium (LEVOTHYROXINE SODIUM) 150 Mcg Tablet, 150 MCG PO DAILY 08/25/18 Discontinued Reported Medications Rosuvastatin Calcium (CRESTOR) 10 Mg Tab, 10 MG PO DAILY 08/25/18 Medications in the ED Aspirin 81 mg PRN ONCE PO ; Start 06/05/20 at 03:00; Stop 06/05/20 at 03:01 LULU FERNANDEZ MD Jun 05, 2020 03:01
[2020-06-05 03:09] LABS: ALANINE AMINOTRANSFERASE 17 IU/L (0-55); ALBUMIN 3.5 g/dL (3.5-5.0); ALBUMIN/GLOBULIN RATIO 0.8 (0.8-2.0); ALKALINE PHOSPHATASE 91 IU/L (40-150); ANION GAP 16.1 mmol/L (8-16); BLOOD UREA NITROGEN 18 mg/dL (7-26); BUN/CREATININE RATIO 17 (6-25); CALCIUM 9.3 mg/dL (8.4-10.2); CARBON DIOXIDE 29 mmol/L (22-29); CHLORIDE 99 mmol/L (98-107); CREATINE KINASE 32 IU/L (30-200); CREATININE, SERUM 1.06 mg/dL (0.72-1.25); EST GLOMERULAR FILTRATION RATE > 60 ML/MIN (60-); GLUCOSE 192 mg/dL (74-118); POTASSIUM 3.1 mmol/L (3.5-5.1); SODIUM 141 mmol/L (136-145)
[2020-06-05] MEDS ORDERED: HYDRALAZINE HCL 20 MG/ML VIAL IV STA (03:16)
[2020-06-05] MEDS ORDERED: BACTRIM DS TAB1 EACH PO (03:26)
[2020-06-05] MEDS ORDERED: TRAZODONE HCL50 MG PO (03:26)
[2020-06-05] MEDS ORDERED: CRESTOR10 MG PO (03:26)
[2020-06-05] MEDS ORDERED: FUROSEMIDE40 MG PO (03:26)
--- NOTE | 2020-06-05 04:09 | Diagnostic Imaging Report ---
EXAMINATION: CHEST SINGLE (PORTABLE) INDICATION: Chest pain COMPARISON: None FINDINGS: TUBES and LINES: None. LUNGS: Low lung volumes. Subtle reticular opacities in the right lower lung. Left hemidiaphragm obscured. Prominent central pulmonary vasculature. PLEURA: No pleural effusion or pneumothorax. HEART AND MEDIASTINUM: Cardiac size is mildly enlarged. BONES AND SOFT TISSUES: No acute osseous lesion. Soft tissues are unremarkable. UPPER ABDOMEN: No free air under the diaphragm. IMPRESSION: Low lung volumes. Subtle reticular opacities in the right lower lung. Lung evaluation limited due to low lung volumes, radiographic technique, and patient body habitus. Mild cardiomegaly and pulmonary vascular congestion. Signed by: Dave Rogers DO on 06/05/2020 4:06 AM
[2020-06-05 05:25] LABS: BILIRUBIN,URINE NEGATIVE (NEGATIVE); CLARITY,URINE CLOUDY (CLEAR); COLOR,URINE YELLOW (YELLOW); KETONES,URINE NEGATIVE (NEGATIVE); LEUKOCYTE ESTERASE ,URINE SMALL (NEGATIVE); NITRITE,URINE POSITIVE (NEGATIVE); PROTEIN,URINE DIPSTICK >=300 (NEGATIVE); URINE UROBILINOGEN 0.2 mg/dL (0.2 - 1)
[2020-06-05] MEDS ORDERED: LEVOFLOXACIN 500MG/D5W 100ML 100 ML IV SCH (05:30)
--- NOTE | 2020-06-05 05:34 | Diagnostic Imaging Report ---
EXAMINATION: Head CT HISTORY: Paranoia, flight of ideas COMPARISON: Head CT 08/27/2018. TECHNIQUE: Helical axial images of the head were obtained. Reformatted coronal and sagittal images from the axial data. Dose modulation, iterative reconstruction, and/or weight based adjustment of the mA/kV was utilized to reduce the radiation dose to as low as reasonably achievable. Image quality: Motion/streaking artifact limits the evaluation of the skull base and posterior cranial fossa. FINDINGS: Parenchyma: 1. Few scattered and mildly confluent periventricular hypodensities, most likely nonspecific chronic microvascular ischemic changes. 2. No mass or hemorrhage. No CT evidence of acute territorial vascular insult. Extra-axial spaces:No abnormal density. No extra-axial fluid collections Brain volume: Normal for age. Ventricles: No hydrocephalus or displacement. 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 Dural sinuses: No abnormal density. Foramen magnum: No mass, Chiari malformation, or basilar invagination. Sella: No obvious mass. Paranasal/mastoid sinuses: New complete opacification of the right mastoid air cells and middle ear, no discrete nasopharyngeal mass. Skull/Scalp: No lytic or blastic lesions. No fractures. IMPRESSION: 1. No acute intracranial abnormalities. 2. Mild chronic microvascular ischemic changes. 3. Atherosclerosis and vertebrobasilar dolichoectasia, unchanged from head CT of 08/27/2018. 4. New opacification of the right mastoid air cells and middle ear since prior head CT, nonemergent ENT evaluation is advised. Signed by: Dr. Arianna Castillo M.D. on 06/05/2020 5:31 AM
[2020-06-05 05:37] LABS: BACTERIA,URINE MODERATE /HPF; EPITHELIAL CELLS,URINE FEW /LPF
[2020-06-05] MEDS ORDERED: ONDANSETRON HCL INJ 2MG/ML 2ML 2 MG/ML VIAL IV PRN (06:00)
[2020-06-05] MEDS ORDERED: SODIUM CHLORIDE FLUSH 10 ML SYR INJ PRN (06:00)
--- NOTE | 2020-06-05 07:12 | NUR ---
Report to IRINA Berger.
[2020-06-05 07:55] VITALS: BP 157/84
--- NOTE | 2020-06-05 07:55 | NUR ---
Received patient from ER via stretcher. Patient shows confusion and combative during transfer to bed. O2 2L via NC. Respiration even and unlabored without SOB. BLE and BUE noted restlessness . Right eyelid is slightly drooping, patient has myasthenia gravis. Patient orientated to room and call button. Bed alarm is on. Call light in reach.
[2020-06-05 08:06] VITALS: BP 157/84
[2020-06-05] MEDS ORDERED: NON-FORMULARY MEDICATION (Levothyroxine Sodium 150 MCG) PO SCH (09:00)
[2020-06-05] MEDS ORDERED: SIMVASTATIN 40 MG TAB PO SCH (09:00)
[2020-06-05] MEDS: FUROSEMIDE INJ 10 MG/ML 4 ML VIAL IV SCH ×2 (09:00→10:39)
[2020-06-05] MEDS ORDERED: NON-FORMULARY MEDICATION (Atenolol/Chlorthalidone (Atenolol-Chlorthalidone 100-25) 1 TAB) PO SCH (09:00)
[2020-06-05 09:17] LABS: CREATINE KINASE MB 1.6 ng/mL (0-5.0)
[2020-06-05] MEDS: LISINOPRIL 20 MG TAB PO SCH ×2 (09:28→18:24)
[2020-06-05] MEDS: ATENOLOL 50 MG TAB PO SCH (09:29)
[2020-06-05] MEDS ORDERED: ACETAMINOPHEN/CODEINE 300MG - 30MG TAB PO PRN (09:45)
[2020-06-05] MEDS ORDERED: POTASSIUM CHLORIDE 20 MEQ TAB CR PO ONE (10:00)
[2020-06-05] MEDS: PYRIDOSTIGMINE BROMIDE 60 MG TAB PO SCH ×2 (10:39→14:52)
[2020-06-05] MEDS: FINASTERIDE 5 MG TAB PO SCH (10:39)
[2020-06-05] MEDS ORDERED: LORAZEPAM INJ 2 MG/ML VIAL IV ONE (10:55)
--- NOTE | 2020-06-05 11:21 | NUR ---
Patient is transported for CT at this time.
[2020-06-05 11:37] VITALS: BP 139/88
--- NOTE | 2020-06-05 11:59 | NUR ---
Spoke with the patient's daughter Eboni and stated that the patient has been overmedicating his Xanax and finished the xanax prescription too soon. She stated that her father lives with her stepmother (Sherri Liu). She said that they noticed that Mr. Liu's increase anxiety and depression started when his X- from covid last May 19, 2020. She states that he uses walker at home, but slow and weakness with ambulation. According to the daughter, the patient was admitted at [facility] last year due to complications of pneumonia and was discharge with oxygen nasal canula, but the patient got dependent on it.
--- NOTE | 2020-06-05 12:01 | Diagnostic Imaging Report ---
CT of the chest, without contrast. History: Altered mental status, chest pain. Comparison: Chest radiograph from earlier 06/05/2020, CT chest PE protocol from 08/25/2018 Technique: Multidetector CT scanning of the chest was performed from the level of the apices to the upper abdomen without contrast. Coronal and sagittal multiplanar reformations were obtained. RADIATION DOSE: Total DLP: 510.88 mGy*cm Dose modulation, iterative reconstruction, and/or weight based adjustment of the mA/kV was utilized to reduce the radiation dose to as low as reasonably achievable. FINDINGS: The visualized structures within the base of the neck demonstrate no significant abnormalities. The thoracic aorta is normal course and caliber with atherosclerotic calcifications within its course and branch vessels including the coronary arteries. The heart is at the upper limits normal for size. No abnormal pericardial fluid is present. There is no abnormal axillary, mediastinal, or hilar lymph node enlargement. The trachea and proximal airways are patent. There is a trace left-sided pleural effusion present with associated compressive atelectasis of the adjacent left lower lobe. There is minimal right basilar dependent density/atelectasis. There is no evidence for focal consolidation, pneumothorax, mass, or suspicious nodule. A subcentimeter calcification is noted within the superior aspect of the right kidney which may represent a nonobstructing stone versus vascular calcification. 2.2 cm exophytic hyperdensity identified arising off the superior pole the left kidney which likely represents a cyst. The remaining visualized upper abdominal contents demonstrate no significant abnormalities. Multilevel degenerative changes and kyphosis noted of the visualized spine. The osseous structures demonstrate no evidence for acute fracture or destructive process. The extrathoracic soft tissues are unremarkable. IMPRESSION: Trace left pleural effusion with associated compressive atelectasis of the adjacent left lower lobe. No evidence for lobar consolidation or other acute intrathoracic process. Signed by: Dr. Fabian Sutherland MD on 06/05/2020 11:58 AM
--- NOTE | 2020-06-05 12:06 | NUR ---
Patient is back from CT.
[2020-06-05] MEDS: LEVOTHYROXINE SODIUM 75 MCG TAB PO SCH (14:52)
[2020-06-05 15:17] VITALS: BP 160/73
[2020-06-05 17:42] LABS: CREATINE KINASE MB 2.3 ng/mL (0-5.0)
[2020-06-05] MEDS: FAMOTIDINE 20 MG TAB PO SCH (18:24)
[2020-06-05] MEDS ORDERED: RISPERIDONE 0.5 MG TAB PO PRN (19:00)
--- NOTE | 2020-06-05 19:00 | NUR ---
Spoke with Dr. Ceja regarding this consult.
--- NOTE | 2020-06-05 19:30 | NUR ---
Patient visited in room during nursing rounds. Patient is alert and oriented x0-1 (self). Pt unaware of surroundings but sometimes able to answer questions. Pt tends to hallucinate at times too. Pt on scheduled IV antibiotics. Patient mostly likely will need a sitter care because of pt attempting to get out of bed by self frequently. Bed alarm active.
--- NOTE | 2020-06-05 19:50 | Consultation ---
DATE OF CONSULTATION: Pulmonary Critical Care Consultation CHIEF COMPLAINT: Confusion and agitation. HISTORY OF PRESENT ILLNESS: The patient is a 79-year-old man. He required hospitalization at [facility] in 2018 due to myasthenia gravis with acute respiratory failure and urinary retention. He also had some prostatic hypertrophy. He was discharged home and has been following up with Dr. Glynn of Neurology as well as Dr. Kay of Urology. He was doing well at home with his myasthenia. He was off Mestinon and off prednisone. He now returns from home complaining of difficulty breathing. He is agitated and confused. When he arrived to the emergency department, he was found to have a UTI and started on antibiotics. PAST SURGICAL HISTORY: Status post suprapubic catheter in the past. PAST MEDICAL HISTORY: 1. Myasthenia gravis. 2. Benign prostatic hypertrophy. 3. Hypothyroidism. 4. Hypertension. FAMILY HISTORY: There is a history of diabetes in the family. SOCIAL HISTORY: The patient is not an active smoker. He is not an active drinker. ALLERGIES: THE PATIENT IS ALLERGIC TO PENICILLIN AND VANCOMYCIN. REVIEW OF SYSTEMS: The patient is confused. He is agitated. He has no fever. He is not having any chest pain. He does not complain of difficulty breathing or cough. There is no nausea or vomiting. PHYSICAL EXAMINATION: VITAL SIGNS: The blood pressure is 160/73 and saturation is 97% on 2 L. HEENT: Shows no facial swelling or erythema. The oropharynx is normal. LYMPHATIC: Shows no submandibular, cervical, or supraclavicular adenopathy. CARDIAC: Reveals regular rate and rhythm with normal S1 and S2. LUNGS: Auscultation of lungs reveals rhonchorous breath sounds bilaterally. There is no wheezing. ABDOMEN: Soft and nontender. There is no rebound or guarding. EXTREMITIES: Shows no leg edema or calf tenderness. There is no cyanosis or clubbing. LABORATORY DATA: White blood cell count of 11.3 and the hemoglobin is 14.7. The platelet count is 239. The BUN to creatinine ratio is 18 to 1.06. The potassium is 3.1. The total bilirubin is 1.9. Urinalysis shows 10 to 20 white blood cells. RADIOGRAPHIC DATA: Chest CT shows trace left pleural effusions and some atelectasis at the left base. CT scan of the brain shows right mastoid air cells and middle ear infection. IMPRESSION: 1. Metabolic encephalopathy. 2. Myasthenia gravis. 3. Possible urinary tract infection. 4. Hypertension. 5. Hypothyroidism. PLAN: 1. Avoid Levaquin, which could be worsening his confusion. 2. Neurology consultation. 3. Avoid any medications, which could be aggravating delirium. 4. Urology consultation. 5. Continue oxygen. 6. Repeat chest x-ray. 7. Await results of echocardiogram. Sudheer Viramontes MD [facility]/MODL /[id number]
[2020-06-05 20:00] VITALS: BP 133/69
--- NOTE | 2020-06-05 20:30 | NUR ---
Nurse (Amish) spoke with Eboni (daughter) via phone and explained about pt condition. Eboni's questions were answered to her satisfaction.
[2020-06-05] MEDS ORDERED: SODIUM CHLORIDE 0.9% 250ML 250 ML ONE (20:45)
[2020-06-05] MEDS: LINEZOLID 600 MG/D5W 300ML 300 ML IV SCH (20:49)
[2020-06-05] MEDS: SIMVASTATIN 20 MG TAB PO SCH (20:49)
[2020-06-05 21:00] VITALS: BP 133/69
[2020-06-05] MEDS ORDERED: ALPRAZOLAM 1 MG PO SCH (21:00)
[2020-06-05] MEDS ORDERED: TRAZODONE HCL 50 MG TAB PO SCH (21:00)
[2020-06-05] MEDS ORDERED: ALPRAZOLAM 1 MG TAB PO SCH (21:00)
--- NOTE | 2020-06-05 22:00 | NUR ---
Patient given bed bath. Pt tolerated bath well.
[2020-06-05] MEDS: AZTREONAM 1 GM/NS 50 ML 50 ML IV SCH (22:30)
--- NOTE | 2020-06-05 23:23 | NUR ---
Called Hamzah Rodriguez (TRANSFER MACHINE OPERATOR) via phone and explained that patient is currently very confused and keeps attempting to get up and out of bed. Hamzah ordered a prn sitter and Xanax 0.5mg TID prn.
[2020-06-05] MEDS ORDERED: ALPRAZOLAM 0.5 MG TAB PO PRN (23:30)
--- NOTE | 2020-06-05 23:55 | NUR ---
Patient given 0.5mg Xanax. Patient still agitated and keeps fidgeting.
[2020-06-06] VITALS (7 sets, daily range): BP systolic 112–167; BP diastolic 62–90
--- NOTE | 2020-06-06 02:00 | NUR ---
Patient finally slept and appear calm at this time. Nurse and VP CUSTOMER SERVICE taking turns sitting inside pt room to watch over pt.
--- NOTE | 2020-06-06 03:00 | NUR ---
Pt awake and keeps fidgeting and has periods of hallucination. Pt talks to himself.
[2020-06-06] MEDS: LEVOTHYROXINE SODIUM 75 MCG TAB PO SCH (05:57)
[2020-06-06] MEDS: AZTREONAM 1 GM/NS 50 ML 50 ML IV SCH ×3 (05:57→22:24)
[2020-06-06 06:09] LABS: BASOPHILS % 0.3 % (0.0-1.0); EOSINOPHILS % 0.1 % (0.0-6.0); HEMATOCRIT 39.9 % (38.2-49.6); HEMOGLOBIN 13.2 g/dL (14.0-18.0); LYMPHOCYTES # (AUTO) 1.9 (1.0-3.2); LYMPHOCYTES % 16.3 % (18.0-39.1); MEAN CORPUSCULAR HEMOGLOBIN 29.9 pg (28-32); MEAN CORPUSCULAR HGB CONC 33.1 g/dL (31-35); MEAN CORPUSCULAR VOLUME 90.3 fL (81-99); MONOCYTES # (AUTO) 1.2 (0.2-0.8); MONOCYTES % 10.1 % (4.4-11.3); NEUTROPHILS # (AUTO) 8.7 (2.1-6.9); NEUTROPHILS % 72.4 % (38.7-80.0); PLATELET COUNT 214 x10e3/uL (140-360); RED BLOOD COUNT 4.42 x10e6/uL (4.3-5.7); RED CELL DISTRIBUTION WIDTH 13.2 % (11.7-14.4)
[2020-06-06 06:33] LABS: ALANINE AMINOTRANSFERASE 16 IU/L (0-55); ALBUMIN 3.2 g/dL (3.5-5.0); ALBUMIN/GLOBULIN RATIO 0.8 (0.8-2.0); ALKALINE PHOSPHATASE 82 IU/L (40-150); ANION GAP 15.5 mmol/L (8-16); BLOOD UREA NITROGEN 26 mg/dL (7-26); BUN/CREATININE RATIO 23 (6-25); CALCIUM 9.2 mg/dL (8.4-10.2); CARBON DIOXIDE 29 mmol/L (22-29); CHLORIDE 101 mmol/L (98-107); CREATININE, SERUM 1.12 mg/dL (0.72-1.25); EST GLOMERULAR FILTRATION RATE > 60 ML/MIN (60-); GLUCOSE 147 mg/dL (74-118); POTASSIUM 3.5 mmol/L (3.5-5.1); SODIUM 142 mmol/L (136-145)
[2020-06-06] MEDS: FAMOTIDINE 20 MG TAB PO SCH ×2 (07:30→16:30)
[2020-06-06 07:59] LABS: CHOL/HDL RATIO 4.9 (3.9-4.7)
--- NOTE | 2020-06-06 08:02 | Consultation ---
DATE OF CONSULTATION: 06/06/2020 Urology Consultation Consultation was called by Dr. Hankins. CHIEF COMPLAINT AND REASON FOR CONSULTATION: BPH and UTI. HISTORY OF PRESENT ILLNESS: Mr. Liu is a 79-year-old male, patient of mine, whom I normally see in the office. He is being followed for an elevated PSA, PIN, BPH, and multiple urinary tract infections. He was admitted to the hospital with altered mental status and respiratory failure. PAST MEDICAL HISTORY: Notable for prior suprapubic tube, Ramirez catheters, myasthenia gravis, BPH, hypothyroidism, hypertension, prostatic intraepithelial neoplasia, elevated PSA, status post biopsies. FAMILY HISTORY: Denied urologic stones or malignancies. SOCIAL HISTORY: Denied smoking or drinking. MEDICATIONS: Please see MAR. ALLERGIES: PENICILLIN AND VANCOMYCIN. REVIEW OF SYSTEMS: Attempted 12 organ systems unable to obtain secondary to the patient refused and agitation. The patient is sitting with a sitter. PHYSICAL EXAMINATION: VITAL SIGNS: Currently, temperature 98.1, pulse 83, respirations 22, blood pressure 112/62. HEENT: Sclerae anicteric. NECK: Supple. BACK: Without costovertebral bilaterally. ABDOMEN: Soft. It is nontender. It is nondistended. No palpable mass. No palpable hernias. No palpable adenopathy. : In diaper. EXTREMITIES: No edema. NEUROLOGIC: Moves all extremities. PSYCH: Alert and mood appropriate. SKIN: Intact. Normal color. PERTINENT LABORATORY DATA: White blood cell count 11,920, hemoglobin 13.2, hematocrit 39.9, and platelet count 214,000. Sodium 142, potassium 3.5, chloride 101, bicarb 29, BUN 26, creatinine 1.1, glucose 147, total bilirubin of 1.9. Urinalysis showing multiple epithelial cells, 11 to 20 reds, 11 to 20 whites. COVID is pending. The patient had a chest CT showing left pleural effusion, atelectasis, microvascular ischemic changes on a head CT. IMPRESSION: 1. Prostatic intraepithelial neoplasia. 2. Elevated PSA. 3. Benign prostatic hypertrophy. 4. Question urinary tract infection. 5. Microscopic hematuria. 6. Hypokalemia. PLAN: The patient's urine specimen was clearly contaminated and is an uncircumcised gentleman in a diaper. Should the patient have difficulty urinating, consider Ramirez catheter placement. We will order imaging to check the kidneys and bladder. Thank you for allowing me to continue to participate in care of my patient. I will be happy to follow along with you. MD MIKEY Brock/MODL /[id number] cc: Olvin Hankins MD
--- NOTE | 2020-06-06 08:56 | Diagnostic Imaging Report ---
X-ray chest AP portable Comparison: 06/05/2020 History: Pneumonia Findings: Borderline heart size. Ectatic atherosclerotic aorta. Possible left pleural effusion. No pneumothorax. No definite focal disease in the right lung. Left diaphragmatic silhouette obscured suggesting a retrocardiac consolidation which could be pneumonia or atelectasis. Visualized skeletal structures show no acute abnormality. Upper abdomen unremarkable. Impression: A left pleural effusion with possible left lower lobe consolidation that could be atelectasis and/or pneumonia. No significant change from the comparison x-ray. Signed by: Marin Mulligan MD on 06/06/2020 8:52 AM
[2020-06-06] MEDS: LINEZOLID 600 MG/D5W 300ML 300 ML IV SCH ×2 (09:00→20:50)
[2020-06-06] MEDS: LISINOPRIL 20 MG TAB PO SCH ×2 (09:00→17:00)
[2020-06-06] MEDS: ATENOLOL 50 MG TAB PO SCH (09:00)
[2020-06-06] MEDS: POTASSIUM CHLORIDE 20 MEQ TAB CR PO SCH (09:00)
[2020-06-06] MEDS: FINASTERIDE 5 MG TAB PO SCH (09:00)
--- NOTE | 2020-06-06 09:24 | Diagnostic Imaging Report ---
Renal ultrasound Comparison: CT abdomen 08/25/2018 Clinical History: Chest pain, UTI Technique: Sonographic evaluation of the kidneys was performed. Multiple images were submitted for interpretation, using a low-frequency curved transducer. Right kidney: The kidney measures 10.8 x 5.4 x 5.2 cm. The cortical echogenicity is slightly increased. The cortex measures 1.3 cm. There is sonographic evidence of a focal hypoechoic mass in the upper pole measuring 3.2 x 2.5 x 3.0 cm. This was seen as an enhancing mass on the previous CT. In this age group, renal cell carcinoma is the likely diagnosis. Additional evaluation with renal protocol CT may be considered. There is no evidence of hydronephrosis. There is no evidence of a shadowing stone. There is sonographic evidence of a simple midpole are cortical cyst measuring 1.3 x 2.0 x 1.4 cm. This was seen on the previous CT also. There is no evidence of a perinephric fluid collection. Flow is visualized to the right kidney. Left kidney: The kidney measures 9.1 x 4.9 x 4.4 cm. The cortical echogenicity is increased. The cortex measures 1.2 cm. There is no evidence of a focal mass. There is no evidence of hydronephrosis. There is no evidence of a shadowing stone. There is sonographic evidence of a cortical exophytic 1.8 x 1.7 x 2.5 cm simple cyst. There is no evidence of a perinephric fluid collection. Flow is visualized to the left kidney. Survey images of the bladder demonstrate incomplete bladder distention. Prevoid volume is 35.7 cc. The patient is unable to cooperate for a post void exam. Impression: A hypoechoic mass in the upper pole of the right kidney with renal cell carcinoma at the top of the differential diagnosis. This mass would be amenable to percutaneous cryoablation if needed. Asymmetric sized echogenic kidneys with the left kidney showing signs of shrinkage. Bilateral cortical renal cysts. Signed by: Marin Mulligan MD on 06/06/2020 9:20 AM
[2020-06-06] MEDS ORDERED: LORAZEPAM INJ 2 MG/ML VIAL IV PRN ×2 (09:45→20:30)
--- NOTE | 2020-06-06 10:55 | NUR ---
Spoke with CHRISTOPHER Gonzalez of Dr. Mckeon. Notified about the consult. Stated that she's going to see the patient.
--- NOTE | 2020-06-06 11:37 | NUR ---
Patient is transported for CT at this time.
--- NOTE | 2020-06-06 12:35 | NUR ---
Patient is back from CT. Speech therapist reports that patient failed MBS and recommended NPO and NMES. CHRISTOPHER Griggs is notified and verbal order given to place patient on NPO, NS at 50 ml/hr and NMES to be done.
--- NOTE | 2020-06-06 12:56 | Diagnostic Imaging Report ---
Modified Barium Swallow: Clinical History: Aspiration Comparison: None Fluoro time in minutes: 3.1 Radiation dose: 37.3 mGy air Kerma. Number of images: Multiple Report: The patient ingested various consistencies of barium with a speech pathologist in attendance. A full report from speech pathology will follow. Impression: Fluoroscopy service provided to speech pathology as above. Signed by: Marin Mulligan MD on 06/06/2020 12:52 PM
[2020-06-06] MEDS ORDERED: IOPAMIDOL 370 MG/ML 200 ML INFUS..BTL INJ ONE (13:07)
[2020-06-06] MEDS ORDERED: SODIUM CHLORIDE 0.9% 50ML 50 ML ONE (13:07)
[2020-06-06] MEDS: SODIUM CHLORIDE 0.9% 1000ML 1,000 ML IV SCH (13:23)
--- NOTE | 2020-06-06 14:27 | Diagnostic Imaging Report ---
CT chest. PE protocol History: Chest pain Comparison: CT chest 06/05/2020. Technique: Axial helical Multidetector CT scanning of the chest was performed from the level of the thoracic inlet to the upper abdomen after intravenous administration non-ionic contrast medium. Thin collimation scanning through the pulmonary arteries was performed in the early phase. Coronal MIP reformations were obtained. Findings: The main pulmonary pulmonary artery is normal in size. The pulmonary artery is well opacified, with with no filling defect seen in the visualized pulmonary artery and all the way to its segmental branches. There is cardiomegaly. There is no right heart strain. The aorta is normal in appearance. There is coronary artery calcification. There is suspected metallic stent in the LAD. There is thoracic spine kyphosis. The patient is also laid asymmetrically in the gantry. This has caused asymmetric lung volumes bilaterally. There is presence of small bilateral pleural effusions, left more than right. There is associated compressive atelectasis of the left lung especially in the left posterior basal segment. A small pneumonia cannot be ruled out. There is elevation of the left hemidiaphragm. Lung brownlee are otherwise unremarkable. Central airways are unremarkable. Thyroid gland is unremarkable. There is no evidence of axillary or mediastinal adenopathy. Other visualized soft tissue structures are unremarkable. Visualized upper abdomen is unremarkable. No aggressive bony lesions are visualized. IMPRESSION: 1. No evidence of an acute pulmonary embolism on this exam. Signed by: Marin Mulligan MD on 06/06/2020 2:24 PM
[2020-06-06] MEDS ORDERED: LORAZEPAM INJ 2 MG/ML VIAL IM PRN (15:00)
[2020-06-06] MEDS ORDERED: HALOPERIDOL LACTATE 5 MG/ML VIAL IM PRN (15:00)
--- NOTE | 2020-06-06 19:30 | NUR ---
Patient visited in room during nursing rounds. Patient is alert and oriented x0-1 (self). Pt unaware of surroundings but sometimes able to answer questions. Pt tends to hallucinate at times too. Pt on scheduled IV antibiotics. Patient has sitter care at bedside because of pt attempting to get out of bed by self frequently. Bed alarm active.
[2020-06-06] MEDS: PYRIDOSTIGMINE BROMIDE 60 MG TAB PO SCH (20:38)
[2020-06-06] MEDS: SIMVASTATIN 20 MG TAB PO SCH (20:38)
[2020-06-06] MEDS: ENOXAPARIN INJ 80 MG/0.8 ML SYR SC SCH (20:50)
--- NOTE | 2020-06-06 22:19 | NUR ---
Patient displaying agitated behavior and attempts to move out of bed. Pt was given 0.5mg IV Ativan. Will monitor pt closely.
--- NOTE | 2020-06-06 22:45 | NUR ---
Pt finally fell asleep and resting comfortably. No sign or display of agitation or aggressive behavior.
--- NOTE | 2020-06-06 23:33 | Consultation ---
DATE OF CONSULTATION: 06/06/2020 Neurology Consult REASON FOR CONSULTATION: History of myasthenia gravis and acute delirium in a patient with UTI. HISTORY OF PRESENT ILLNESS: The patient is a 79-year-old male, who is admitted for multiple UTIs, delirium, and agitation. His diagnosis looks like myasthenia gravis with respiratory failure, urinary retention, and continues to have static hypertrophy and this has been progressive and persistent problem. He does see Dr. Glynn as an outpatient for the myasthenia gravis. At this time, he seemed to be confused and he was found to have UTI on admission. PAST MEDICAL HISTORY: Includes BPH, hypothyroidism, and myasthenia gravis. REVIEW OF SYSTEMS: He is quite delirious at this time, he is unable to provide much more history. PHYSICAL EXAMINATION: VITAL SIGNS: Shows that he is afebrile with temperature 98.3, heart rate of 91, blood pressure 167/73. HEENT: His extraocular muscles are intact. His speech is dysarthric and guttural. He is not able to pronounce the words aloud. He does not really follow commands, he looks at the examiner. Moves all four extremities. He is picking at objects himself and apparently, might be hallucinating as well. He has no nuchal rigidity, however. NECK: Supple. His trachea is midline. CARDIOVASCULAR: Regular rate and rhythm. His strength is at least 4+/5 in bilateral upper extremities. PULMONARY: Clear to auscultation. ABDOMEN: Soft, nontender. NEUROLOGIC: Reflexes are present and symmetric, but difficult to elicit. He does not following commands. He withdraws to plantar stimulation bilaterally . He moves both his legs, however, at least 3 to 4/5. ASSESSMENT/PLAN: I am seeing this patient, Noe for acute delirium, history of myasthenia gravis. I am going to adjust the medications . He seems to be breathing well at this time. So, I am changing the myasthenia medications. He does not appear to be seizing. I am going to recommend melatonin at night. For agitated delirium, confusion, treat underlying UTI and continue adjust at this time. MD THIERRY MARINO /[id number]
[2020-06-07] VITALS (8 sets, daily range): BP systolic 123–176; BP diastolic 68–85
--- NOTE | 2020-06-07 03:30 | NUR ---
Received report from jerrica (Talita Fraire) that when she changed patient's diaper, some spots of blood noticed that was observed in diaper. No trauma to penile area noted. No open wound on manuel-anal area. Pt in stable condition.
--- NOTE | 2020-06-07 04:00 | NUR ---
Pt asleep but easily arousable. No distress or discomfort observed on patient. No agitated behavior at this time.
[2020-06-07] MEDS: AZTREONAM 1 GM/NS 50 ML 50 ML IV SCH (05:47)
[2020-06-07] MEDS: LEVOTHYROXINE SODIUM 100 MCG TAB PO SCH (05:48)
[2020-06-07] MEDS: LEVOTHYROXINE SODIUM 75 MCG TAB PO SCH (05:48)
[2020-06-07] MEDS: FAMOTIDINE 20 MG TAB PO SCH ×2 (05:48→16:15)
[2020-06-07] MEDS ORDERED: LEVOTHYROXINE SODIUM 100 MCG TAB PO SCH (06:00)
[2020-06-07] MEDS ORDERED: LEVOTHYROXINE SODIUM 50 MCG TAB PO SCH (06:00)
--- NOTE | 2020-06-07 06:03 | NUR ---
Received call from Mo (lab) and reported that patient is positive for ESBL of urine. Computer Aided Design Operator and CN notified about report. Pt will be placed on contact isolation per protocol.
[2020-06-07 06:07] LABS: BASOPHILS % 0.2 % (0.0-1.0); EOSINOPHILS % 0.2 % (0.0-6.0); HEMATOCRIT 38.2 % (38.2-49.6); LYMPHOCYTES # (AUTO) 1.3 (1.0-3.2); MEAN CORPUSCULAR HEMOGLOBIN 31.4 pg (28-32); MEAN CORPUSCULAR VOLUME 92.3 fL (81-99); MONOCYTES # (AUTO) 0.8 (0.2-0.8); MONOCYTES % 7.8 % (4.4-11.3); PLATELET COUNT 201 x10e3/uL (140-360); RED BLOOD COUNT 4.14 x10e6/uL (4.3-5.7); RED CELL DISTRIBUTION WIDTH 13.2 % (11.7-14.4)
[2020-06-07 06:29] LABS: ALANINE AMINOTRANSFERASE 15 IU/L (0-55); ALBUMIN 3.2 g/dL (3.5-5.0); ALBUMIN/GLOBULIN RATIO 0.9 (0.8-2.0); ALKALINE PHOSPHATASE 84 IU/L (40-150); ANION GAP 15.2 mmol/L (8-16); BLOOD UREA NITROGEN 21 mg/dL (7-26); BUN/CREATININE RATIO 23 (6-25); CALCIUM 9.2 mg/dL (8.4-10.2); CARBON DIOXIDE 29 mmol/L (22-29); CHLORIDE 102 mmol/L (98-107); CREATININE, SERUM 0.91 mg/dL (0.72-1.25); EST GLOMERULAR FILTRATION RATE > 60 ML/MIN (60-); GLUCOSE 144 mg/dL (74-118); POTASSIUM 3.2 mmol/L (3.5-5.1); SODIUM 143 mmol/L (136-145)
[2020-06-07] MEDS: SODIUM CHLORIDE 0.9% 1000ML 1,000 ML IV SCH (09:00)
[2020-06-07] MEDS: PYRIDOSTIGMINE BROMIDE 60 MG TAB PO SCH ×3 (09:00→20:09)
[2020-06-07] MEDS: LISINOPRIL 20 MG TAB PO SCH ×2 (09:00→16:15)
[2020-06-07] MEDS: POTASSIUM CHLORIDE 20 MEQ TAB CR PO SCH (09:00)
[2020-06-07] MEDS: ATENOLOL 50 MG TAB PO SCH (09:00)
[2020-06-07] MEDS: FINASTERIDE 5 MG TAB PO SCH (09:00)
[2020-06-07] MEDS ORDERED: POTASSIUM CHLORIDE 20 MEQ TAB CR PO ONE (09:30)
--- NOTE | 2020-06-07 10:11 | NUR ---
CALLED ABOUT SNF ORDER, GAVE OPTIONS IN NETWORK SHE CHOSE [facility], FILED CHOICE IN CHART AND FAXED CLINICALS TO FACILITY.
--- NOTE | 2020-06-07 10:13 | NUR ---
EDUCATED ABOUT IMM, SIGNED, FILED IN CHART, WITH COPY LEFT WITH FAMILY AT BEDSIDE.
[2020-06-07] MEDS: ENOXAPARIN INJ 80 MG/0.8 ML SYR SC SCH (10:33)
[2020-06-07] MEDS ORDERED: MEROPENEM 500MG/ NS 50ML 50 ML IV SCH (12:00)
[2020-06-07] MEDS: MEROPENEM 500MG/ NS 50ML 50 ML IV SCH ×2 (12:00→18:00)
--- NOTE | 2020-06-07 13:49 | NUR ---
patient stable awake less agitated still confused 98.8 92 135/81 HEENT: His extraocular muscles are intact. His speech is dysarthric and guttural. He is not able to pronounce the words aloud. He does not really follow commands, he looks at the examiner. Moves all four extremities. He is picking at objects himself and apparently, might be hallucinating as well. He has no nuchal rigidity, however. NECK: Supple. His trachea is midline. CARDIOVASCULAR: Regular rate and rhythm. His strength is at least 4+/5 in bilateral upper extremities. PULMONARY: Clear to auscultation. ABDOMEN: Soft, nontender. NEUROLOGIC: dysarthric speech Reflexes are present and symmetric, but difficult to elicit. He does not following commands. He withdraws to plantar stimulation bilaterally He moves both his legs, however, at least 3 to 4/5. ASSESSMENT/PLAN: I am seeing this patient, Noe for acute delirium, history of myasthenia gravis. doing well on current regimen and treatment of uti reports recently recived ivig,
--- NOTE | 2020-06-07 16:32 | NUR ---
Nutrition Intervention Note RD Recommendation(s) for Physician: - At this time, recommend Glucerna 1.2 @ goal rate of 60 mL/hr for glucose control (provides 1728 kcal, 86 g protein, and 1159 mL water) - Water flush of 165 mL q4hrs or per MD Plan of Care: RD following, monitoring for tolerance and adequacy, tube feed recommendation Nutrition reason for involvement: consult for tube feeding recommendation RD Assessment (06/07/20) Pt is a 79 year old male admitted with AMS, chest pain, and UTI. Pt is confused per MD note. Speech therapy indicated that pt is not appropriate for PO intake and recommended pt remains NPO with alternative means of nutrition at this time. RD received consult for tube feeding. Recommendations provided. Per weight history in chart, pt weighed 190-205 lbs from a previous admission in Sep 2018. Pt currently has a weight of 190 lbs in chart. Will continue to monitor Principal Problems/Diagnoses: AMS, chest pain, UTI PMH: Myasthenia gravis, Benign prostatic hypertrophy, Hypothyroidism, Hypertension. GI: last recorded BM 06/06, soft abdomen Skin: intact Labs: (06/07) Na 143, K 3.2, BUN 21, Cr 0.91, Total Bili 1.8, Glu 144-192 (06/05-06/07), Meds: levothyroxine, pepcid, lisnopril, lovenox, antibiotic, zofran Ht: 67 inches Wt:190.31 lbs BMI: 29.8 kg/m2 IBW: 148 lbs Malnutrition Evaluation (06/07/20) Unable to assess at this time. Will re-evaluate at follow-up as appropriate. Nutrition Prescription (Diet Order): NPO Estimated Nutritional Needs: Calories: 5607-3629 calories/day (18-20 kcal/kg CBW) Protein: 86-129 g protein/day (1-1.5 g pro/kg CBW) Water: 2158 mL/day (25 mL/kg CBW) Diet Adequacy: Pt is NPO Tolerance: N/A, pt is NPO Diet Education Needs Assessment: Diet education not indicated, patient on temporary/transition diet. Nutrition Care Level: moderate Nutrition Diagnosis: Swallowing difficulty related to pharyngeal dysphagia as evidenced by pt requiring alternative means of nutrition. Goal: Patient will meet 75-100% of estimated needs by follow up Progress: N/A Interventions: - Composition, Rate, Route, Collaboration with other providers Monitoring/Evaluation: -Total energy intake, Total protein intake, Formula/Solution, Weight change Signed: Luisa Borrego RD, LD
--- NOTE | 2020-06-07 18:26 | NUR ---
awaiting picc team arrival. consent obtained via telephone by . placed on chart.
--- NOTE | 2020-06-07 19:00 | NUR ---
Resumed care of patient. Patient awake and resting in bed, respirations even and unlabored on room air, no s/s of distress at this time. Bed locked and in lowest position, side rails upx3, call light placed within reach. PCT at bedside. All safety measures in place.
[2020-06-07] MEDS: SIMVASTATIN 20 MG TAB PO SCH (20:09)
--- NOTE | 2020-06-07 20:20 | NUR ---
IR nurse at bedside to place PICC line.
--- NOTE | 2020-06-07 21:16 | Diagnostic Imaging Report ---
EXAMINATION: CHEST XRAY LINE PLACEMENT INDICATION: ^PICC line placement COMPARISON: CT dated 06/06/2020 FINDINGS: TUBES and LINES: The tip of a left PICC projects over the distal SVC. LUNGS: Normal lung volumes. Confluent opacity at the left base. PLEURA: No pneumothorax. HEART AND MEDIASTINUM: The cardiomediastinal silhouette is unremarkable. BONES AND SOFT TISSUES: No acute osseous lesion. Soft tissues are unremarkable. UPPER ABDOMEN: No free air under the diaphragm. IMPRESSION: 1. The tip of the left PICC projects over the distal SVC. No pneumothorax. 2. Confluent opacity at the left base corresponds to recent CT findings of small pleural effusion and adjacent airspace disease which could represent atelectasis and/or pneumonia. Signed by: Reginald Mojica MD on 06/07/2020 9:12 PM
[2020-06-08] VITALS: BP 148/78
[2020-06-08] MEDS: SODIUM CHLORIDE 0.9% 1000ML 1,000 ML IV SCH ×2 (00:10→23:18)
[2020-06-08] MEDS: MEROPENEM 500MG/ NS 50ML 50 ML IV SCH ×5 (00:10→23:12)
[2020-06-08 04:00] VITALS: BP 176/96
[2020-06-08] MEDS: HYDRALAZINE HCL 20 MG/ML VIAL IV PRN ×2 (05:08→20:32)
[2020-06-08] MEDS: LEVOTHYROXINE SODIUM 100 MCG TAB PO SCH (05:15)
[2020-06-08] MEDS: LEVOTHYROXINE SODIUM 75 MCG TAB PO SCH (05:16)
[2020-06-08 05:50] LABS: BASOPHILS % 0.4 % (0.0-1.0); EOSINOPHILS % 0.3 % (0.0-6.0); HEMATOCRIT 40.4 % (38.2-49.6); HEMOGLOBIN 13.1 g/dL (14.0-18.0); LYMPHOCYTES # (AUTO) 1.9 (1.0-3.2); LYMPHOCYTES % 18.4 % (18.0-39.1); MEAN CORPUSCULAR HEMOGLOBIN 29.7 pg (28-32); MEAN CORPUSCULAR HGB CONC 32.4 g/dL (31-35); MEAN CORPUSCULAR VOLUME 91.6 fL (81-99); MONOCYTES # (AUTO) 0.9 (0.2-0.8); MONOCYTES % 8.1 % (4.4-11.3); NEUTROPHILS # (AUTO) 7.6 (2.1-6.9); NEUTROPHILS % 72.1 % (38.7-80.0); PLATELET COUNT 243 x10e3/uL (140-360); RED BLOOD COUNT 4.41 x10e6/uL (4.3-5.7); RED CELL DISTRIBUTION WIDTH 13.2 % (11.7-14.4)
--- NOTE | 2020-06-08 06:23 | NUR ---
Patient resting quietly in bed, respirations even and unlabored on room air, no s/s of distress at this time. PCT at bedside. All safety measures in place.
[2020-06-08 06:42] LABS: ALANINE AMINOTRANSFERASE 13 IU/L (0-55); ALBUMIN/GLOBULIN RATIO 0.8 (0.8-2.0); ALKALINE PHOSPHATASE 80 IU/L (40-150); ANION GAP 19.1 mmol/L (8-16); BLOOD UREA NITROGEN 20 mg/dL (7-26); BUN/CREATININE RATIO 23 (6-25); CARBON DIOXIDE 24 mmol/L (22-29); CHLORIDE 105 mmol/L (98-107); CREATININE, SERUM 0.86 mg/dL (0.72-1.25); EST GLOMERULAR FILTRATION RATE > 60 ML/MIN (60-); GLUCOSE 113 mg/dL (74-118); POTASSIUM 3.1 mmol/L (3.5-5.1); SODIUM 145 mmol/L (136-145)
--- NOTE | 2020-06-08 07:00 | NUR ---
received report, pt is sleeping in bed, no s/s of distress. sitter is at the bedside. call light within reach and bed safety intact
[2020-06-08] MEDS: FAMOTIDINE 20 MG TAB PO SCH ×2 (07:30→16:35)
[2020-06-08] MEDS: PYRIDOSTIGMINE BROMIDE 60 MG TAB PO SCH ×3 (07:42→20:32)
[2020-06-08] MEDS: POTASSIUM CHLORIDE 20 MEQ TAB CR PO SCH (07:42)
[2020-06-08] MEDS: FINASTERIDE 5 MG TAB PO SCH (07:43)
[2020-06-08] MEDS: LISINOPRIL 20 MG TAB PO SCH ×2 (07:43→16:35)
[2020-06-08] MEDS: ATENOLOL 50 MG TAB PO SCH ×2 (07:44→11:42)
[2020-06-08 08:43] VITALS: BP 138/76
--- NOTE | 2020-06-08 11:04 | NUR ---
patient stable awake less agitated still confused 98.6 103 138/76 HEENT: His extraocular muscles are intact. His speech is dysarthric and guttural. He is not able to pronounce the words aloud. He does not really follow commands, he looks at the examiner. Moves all four extremities. He is picking at objects himself and apparently, might be hallucinating as well. He has no nuchal rigidity, however. NECK: Supple. His trachea is midline. CARDIOVASCULAR: Regular rate and rhythm. His strength is at least 4+/5 in bilateral upper extremities. PULMONARY: Clear to auscultation. ABDOMEN: Soft, nontender. NEUROLOGIC: dysarthric speech Reflexes are present and symmetric, but difficult to elicit. He does not following commands. He withdraws to plantar stimulation bilaterally He moves both his legs, however, at least 3 to 4/5. ASSESSMENT/PLAN: I am seeing this patient, Noe for acute delirium, history of myasthenia gravis. continue mestinon ivig if respiratory status begins to decline
[2020-06-08 11:11] VITALS: BP 151/89
[2020-06-08] MEDS ORDERED: POTASSIUM CHLORIDE 20MEQ/100ML 200 ML IV ONE (11:30)
[2020-06-08] MEDS ORDERED: ONDANSETRON HCL 4 MG ORAL DISINTEGRATING TAB PO PRN (14:30)
[2020-06-08 15:23] VITALS: BP 160/78
[2020-06-08] MEDS: ENOXAPARIN SOD INJ 40 MG/0.4 ML SYR SC SCH (16:35)
[2020-06-08] MEDS: SIMVASTATIN 20 MG TAB PO SCH (20:32)
[2020-06-08 20:53] VITALS: BP 187/83
[2020-06-08] MEDS: QUETIAPINE FUMARATE 25 MG TAB PO PRN (23:12)
[2020-06-09] VITALS (8 sets, daily range): BP systolic 143–187; BP diastolic 67–83
--- NOTE | 2020-06-09 01:10 | NUR ---
PATIENT IS GETTING CONFUSED, TRIED TO GET OUT OF BED. MED GIVEN PER MAR
[2020-06-09] MEDS: HYDRALAZINE HCL 20 MG/ML VIAL IV PRN ×2 (05:10→20:21)
[2020-06-09 06:00] LABS: BASOPHILS % 0.2 % (0.0-1.0); EOSINOPHILS % 0.1 % (0.0-6.0); HEMATOCRIT 39.8 % (38.2-49.6); HEMOGLOBIN 12.5 g/dL (14.0-18.0); LYMPHOCYTES # (AUTO) 1.4 (1.0-3.2); LYMPHOCYTES % 17.1 % (18.0-39.1); MEAN CORPUSCULAR HEMOGLOBIN 29.4 pg (28-32); MEAN CORPUSCULAR HGB CONC 31.4 g/dL (31-35); MEAN CORPUSCULAR VOLUME 93.6 fL (81-99); MONOCYTES # (AUTO) 0.7 (0.2-0.8); MONOCYTES % 8.1 % (4.4-11.3); NEUTROPHILS % 73.4 % (38.7-80.0); PLATELET COUNT 221 x10e3/uL (140-360); RED BLOOD COUNT 4.25 x10e6/uL (4.3-5.7); RED CELL DISTRIBUTION WIDTH 13.8 % (11.7-14.4)
[2020-06-09] MEDS: LEVOTHYROXINE SODIUM 100 MCG TAB PO SCH (06:00)
[2020-06-09] MEDS: LEVOTHYROXINE SODIUM 75 MCG TAB PO SCH (06:00)
[2020-06-09] MEDS: MEROPENEM 500MG/ NS 50ML 50 ML IV SCH ×4 (06:04→23:36)
[2020-06-09 06:32] LABS: ALANINE AMINOTRANSFERASE 13 IU/L (0-55); ALBUMIN 2.9 g/dL (3.5-5.0); ALBUMIN/GLOBULIN RATIO 0.8 (0.8-2.0); ALKALINE PHOSPHATASE 73 IU/L (40-150); ANION GAP 18.6 mmol/L (8-16); BLOOD UREA NITROGEN 23 mg/dL (7-26); BUN/CREATININE RATIO 25 (6-25); CARBON DIOXIDE 22 mmol/L (22-29); CHLORIDE 110 mmol/L (98-107); CREATININE, SERUM 0.92 mg/dL (0.72-1.25); EST GLOMERULAR FILTRATION RATE > 60 ML/MIN (60-); GLUCOSE 115 mg/dL (74-118); POTASSIUM 3.6 mmol/L (3.5-5.1); SODIUM 147 mmol/L (136-145)
[2020-06-09] MEDS: LISINOPRIL 20 MG TAB PO SCH ×2 (08:16→16:39)
[2020-06-09] MEDS: POTASSIUM CHLORIDE 20 MEQ TAB CR PO SCH (08:16)
[2020-06-09] MEDS: PYRIDOSTIGMINE BROMIDE 60 MG TAB PO SCH ×3 (08:16→21:47)
[2020-06-09] MEDS: FAMOTIDINE 20 MG TAB PO SCH ×2 (08:16→16:39)
[2020-06-09] MEDS: ATENOLOL 50 MG TAB PO SCH (08:17)
[2020-06-09] MEDS: FINASTERIDE 5 MG TAB PO SCH (08:17)
--- NOTE | 2020-06-09 13:15 | NUR ---
patient stable awake less agitated still confused 98.3 73 143/68 HEENT: His extraocular muscles are intact. His speech is dysarthric and guttural. He is not able to pronounce the words aloud. He does not really follow commands, he looks at the examiner. Moves all four extremities. He is picking at objects himself and apparently, might be hallucinating as well. He has no nuchal rigidity, however. NECK: Supple. His trachea is midline. CARDIOVASCULAR: Regular rate and rhythm. His strength is at least 4+/5 in bilateral upper extremities. PULMONARY: Clear to auscultation. ABDOMEN: Soft, nontender. NEUROLOGIC: dysarthric speech Reflexes are present and symmetric, but difficult to elicit. He does not following commands. He withdraws to plantar stimulation bilaterally He moves both his legs, however, at least 3 to 4/5. ASSESSMENT/PLAN: I am seeing this patient, Liu for acute delirium, history of myasthenia gravis. continue mestinon ivig if respiratory status begins to decline will add rivastigmien for pro-cholinergic effect
--- NOTE | 2020-06-09 13:30 | NUR ---
pt safely transferred to room 213, pt was oriented to room and call light placed within reach
--- NOTE | 2020-06-09 16:19 | NUR ---
telemetry called RN reporting that the patient has been quickly dropping into the 30's heart rate and has a 2.8 sec pause. the heart rate will then come back up into the 70s. assessed patient, there is no s/s of distress. patient is currently at 72 HR and patient states that he feels ok.
--- NOTE | 2020-06-09 16:20 | NUR ---
notified MIGDALIA Griggs of telemetry changes. received telephone order to discontinue beta daniel and to consult Dr. Daily. orders put in.
--- NOTE | 2020-06-09 16:20 | NUR ---
spoke to Dr. Miriam Kelly pertaining cardiology consult. stated that the patient would be seen in the morning 06/10/2020.
[2020-06-09] MEDS: RIVASTIGMINE TARTRATE 1.5 MG CAP PO SCH (16:39)
[2020-06-09] MEDS: ENOXAPARIN SOD INJ 40 MG/0.4 ML SYR SC SCH (17:58)
--- NOTE | 2020-06-09 19:00 | NUR ---
Resumed care of patient. Patient awake and sitting up in bed, respirations even and unlabored on room air, no s/s of distress at this time. Bed locked and in lowest position, side rails upx3, alarm on, call light placed within reach. Patient instructed to call for assistance if needed, verbalized understanding. All safety measures in place.
--- NOTE | 2020-06-09 19:47 | NUR ---
Confirmed with radiology that patient is scheduled for CT abdomen with contrast at 2100. Orders to keep patient NPO until then. Patient made aware of plan.
[2020-06-09] MEDS: SODIUM CHLORIDE 0.9% 1000ML 1,000 ML IV SCH (20:21)
[2020-06-09] MEDS ORDERED: IOPAMIDOL 370 MG/ML 200 ML INFUS..BTL INJ ONE (20:51)
[2020-06-09] MEDS ORDERED: SODIUM CHLORIDE 0.9% 50ML 50 ML ONE (20:51)
--- NOTE | 2020-06-09 21:08 | NUR ---
Patient leaving unit for CT. In stable condition.
--- NOTE | 2020-06-09 21:39 | NUR ---
Patient returned from CT in stable condition, no s/s of distress at this time. All safety measures in place.
[2020-06-09] MEDS: QUETIAPINE FUMARATE 25 MG TAB PO PRN (21:47)
[2020-06-09] MEDS: SIMVASTATIN 20 MG TAB PO SCH (21:47)
--- NOTE | 2020-06-09 22:38 | Diagnostic Imaging Report ---
EXAM: CT Abdomen and Pelvis WITHOUT and WITH contrast INDICATION: Renal mass COMPARISON: Abdominal CT 08/25/2018. TECHNIQUE: Abdomen and pelvis were scanned utilizing a multidetector helical scanner from the lung base to the pubic symphysis before and after administration of IV contrast. Coronal and sagittal reformations were obtained. Renal mass protocol was performed. Scan was performed pre-, arterial, nephrographic, and 4 minute delayed phase. IV CONTRAST: 150 mL of Omnipaque 300 ORAL CONTRAST: None COMPLICATIONS: None RADIATION DOSE: Total DLP: 1929 mGy*cm Estimated effective dose: (DLP x 0.015 x size factor) mSv CTDIvol has been reviewed. It is below the limits set by the Radiation Protocol Committee (RPC). Dose modulation, iterative reconstruction, and/or weight based adjustment of the mA/kV was utilized to reduce the radiation dose to as low as reasonably achievable. FINDINGS: LINES and TUBES: Superior approach central venous catheter, tip in the superior cavoatrial junction.. LOWER THORAX: Triple vessel coronary artery calcific atherosclerosis. Aortic valve and mitral annular calcifications. Small left pleural effusion with basilar atelectasis. Prominent pulmonary vasculature. HEPATOBILIARY: No focal hepatic lesions. No biliary ductal dilation. GALLBLADDER: Layering small stones in the gallbladder lumen. SPLEEN: No splenomegaly. PANCREAS: No focal masses or ductal dilatation. ADRENALS: No adrenal nodules KIDNEYS/URETERS: A 4.2 cm right heterogeneous enhancing renal superior pole mass, was 3.2 cm on 08/25/2018, has the following densities on multiphase scans: -39 HU on precontrast -70 HU on arterial phase -130 HU on venous phase -61 HU on delayed phase The mass is hypoenhancing relative to normal renal parenchyma on all postcontrast phases. Scattered simple bilateral renal cysts. Mild bilateral perinephric fat stranding. Kidneys otherwise enhance symmetrically. No hydronephrosis. No stones. GI TRACT: No abnormal distention, wall thickening, or evidence of bowel obstruction. Barium in the colon and rectum. Normal appendix. PELVIC ORGANS/BLADDER: Prostatomegaly. Contrast in the bladder lumen. LYMPH NODES: No lymphadenopathy. VESSELS: Arterial calcifications.. PERITONEUM / RETROPERITONEUM: No free air or fluid. BONES: Osseous demineralization. Degenerative changes. SOFT TISSUES: Unremarkable. IMPRESSION: 1. The 4.6 cm right renal superior pole solid mass was 3.2 cm in 2018, and remains compatible with renal cell carcinoma. No obvious metastasis. 2. Triple vessel coronary artery calcific atherosclerosis. 3. 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 Small left pleural effusion. Pulmonary vascular congestion. 4. Prostatomegaly. 5. Cholelithiasis. Signed by: Dave Rogers DO on 06/09/2020 10:35 PM
[2020-06-10] MEDS: LEVOTHYROXINE SODIUM 75 MCG TAB PO SCH (05:12)
[2020-06-10] MEDS: MEROPENEM 500MG/ NS 50ML 50 ML IV SCH ×3 (05:12→17:00)
[2020-06-10] MEDS: LEVOTHYROXINE SODIUM 100 MCG TAB PO SCH (05:12)
[2020-06-10 05:42] VITALS: BP 150/72
--- NOTE | 2020-06-10 05:47 | NUR ---
Informed by telemetry that patient's HR jumped to 170s, dropped to 30s, and came back up to 70s. Patient resting quietly in bed, no s/s of distress at this time. Heart monitor showing SR in 70s. Occasional PVC noted. Will continue to monitor closely and pass along to day shift RN. Pending cardiology consult in the AM. All safety measures in place.
[2020-06-10 06:08] LABS: BASOPHILS % 0.4 % (0.0-1.0); EOSINOPHILS % 0.3 % (0.0-6.0); HEMATOCRIT 38.7 % (38.2-49.6); HEMOGLOBIN 12.3 g/dL (14.0-18.0); LYMPHOCYTES # (AUTO) 1.3 (1.0-3.2); LYMPHOCYTES % 17.3 % (18.0-39.1); MEAN CORPUSCULAR HGB CONC 31.8 g/dL (31-35); MEAN CORPUSCULAR VOLUME 94.4 fL (81-99); MONOCYTES # (AUTO) 0.6 (0.2-0.8); MONOCYTES % 7.7 % (4.4-11.3); NEUTROPHILS # (AUTO) 5.6 (2.1-6.9); PLATELET COUNT 211 x10e3/uL (140-360); RED CELL DISTRIBUTION WIDTH 13.9 % (11.7-14.4)
--- NOTE | 2020-06-10 06:16 | NUR ---
Patient awake and sitting up in bed after receiving bed bath, respirations even and unlabored on room air, no s/s of distress at this time. All safety measures in place.
[2020-06-10 06:40] LABS: ALANINE AMINOTRANSFERASE 12 IU/L (0-55); ALBUMIN 2.7 g/dL (3.5-5.0); ALBUMIN/GLOBULIN RATIO 0.8 (0.8-2.0); ALKALINE PHOSPHATASE 65 IU/L (40-150); ANION GAP 15.4 mmol/L (8-16); BLOOD UREA NITROGEN 21 mg/dL (7-26); BUN/CREATININE RATIO 23 (6-25); CALCIUM 8.7 mg/dL (8.4-10.2); CARBON DIOXIDE 24 mmol/L (22-29); CHLORIDE 114 mmol/L (98-107); EST GLOMERULAR FILTRATION RATE > 60 ML/MIN (60-); GLUCOSE 122 mg/dL (74-118); POTASSIUM 3.4 mmol/L (3.5-5.1); SODIUM 150 mmol/L (136-145)
--- NOTE | 2020-06-10 07:00 | NUR ---
BEDSIDE SHIFT REPORT RECEIVED FROM THE PANEL MACHINE TENDER RN. EDUCATED PT ABOUT FALL PRECAUTIONS. PT VERBALIZED UNDERSTANDING. BED IS LOW AND LOCKED. SIDE RAILS X2. CALL LIGHT WITH IN EASY REACH. BED ALARM IS ON. ALL SAFETY MEASURES IN PLACE. PT DENIES NEEDS AT THIS TIME.
[2020-06-10 07:36] VITALS: BP 164/75
[2020-06-10] MEDS: FAMOTIDINE 20 MG TAB PO SCH ×2 (08:19→16:08)
[2020-06-10] MEDS: RIVASTIGMINE TARTRATE 1.5 MG CAP PO SCH ×2 (08:20→16:08)
[2020-06-10] MEDS: POTASSIUM CHLORIDE 20 MEQ TAB CR PO SCH (08:20)
[2020-06-10] MEDS: PYRIDOSTIGMINE BROMIDE 60 MG TAB PO SCH ×2 (08:22→16:00)
[2020-06-10] MEDS: LISINOPRIL 20 MG TAB PO SCH ×2 (08:23→16:06)
[2020-06-10] MEDS: FINASTERIDE 5 MG TAB PO SCH (08:23)
[2020-06-10 08:50] VITALS: BP 164/75
--- NOTE | 2020-06-10 10:19 | NUR ---
FAXED DIET UPDATE TO FACILITY
[2020-06-10] MEDS: HYDRALAZINE HCL 20 MG/ML VIAL IV PRN (11:06)
[2020-06-10 11:35] VITALS: BP 182/72
[2020-06-10] MEDS ORDERED: D5.45%NS/KCL 20MEQ 1,000 ML IV SCH (12:15)
--- NOTE | 2020-06-10 12:26 | NUR ---
LONG TERM FACILITY DISCHARGE INFORMATION PATIENT HAS BEEN ACCEPTED TO: NAME: FABIANO ADDRESS:[id number] [facility] ACCEPTING PRESS OFFICER:GEORGE TILLMAN ACCEPTING MD: LADY ROOM: 127 NURSE CALL REPORT TO: [phone] IMM SIGNED AND OBTAINED (if applicable): IMM THE FOLLOWING DOCUMENTS MUST ACCOMPANY PATIENT FOR TRANSFER: COPIED CHART:PACKET
[2020-06-10] MEDS ORDERED: POTASSIUM CHLORIDE 20 MEQ TAB CR PO ONE (12:45)
--- NOTE | 2020-06-10 12:45 | NUR ---
OKAY TO ADMINISTER CLONIDINE 0.1 MG PER ANA E BUSINESS CONSULTANT
[2020-06-10] MEDS: CLONIDINE HCL 0.1 MG TAB PO SCH ×2 (12:50→15:13)
--- NOTE | 2020-06-10 13:00 | NUR ---
HOLD TRANSFER TILL DR SEE THE PT PER DR. STRAUSS.
[2020-06-10] MEDS: ACETAMINOPHEN 325 MG TAB PO PRN ×2 (13:24→18:59)
[2020-06-10] MEDS: QUETIAPINE FUMARATE 25 MG TAB PO PRN (13:39)
--- NOTE | 2020-06-10 14:00 | NUR ---
RAFITA PEREZ NP AND COUNTY EXTENSION AGENT AND INFORMED TRANSFER HOLD. WAITING FOR THE CLEARANCE FROM DR. STRAUSS.
[2020-06-10] MEDS ORDERED: FUROSEMIDE INJ 10 MG/ML 4 ML VIAL IV ONE (15:00)
--- NOTE | 2020-06-10 15:05 | NUR ---
RECHECKED PT BP. 100/45 NOTED. PAGED ANA CONTRACT DESIGN AGENT AND NOTIFIED THE SAME. HOLD LASIX AND CLONIDINE AT 1700 PER ANA.
[2020-06-10 15:41] VITALS: BP 100/45
[2020-06-10] MEDS: ENOXAPARIN SOD INJ 40 MG/0.4 ML SYR SC SCH (16:08)
--- NOTE | 2020-06-10 16:15 | NUR ---
AMPARO TO D/C PT PER DR. STRAUSS.
--- NOTE | 2020-06-10 16:21 | NUR ---
D/C PT AND TRANSFER TO [facility] PER ANA NEGRON.
--- NOTE | 2020-06-10 16:29 | NUR ---
RAFITA SNOW AND REPORT GIVEN TO LISSY AREVALO. PT IS TRANSFERRING TO [facility] PER THE RN.
--- NOTE | 2020-06-10 16:30 | NUR ---
INFORMED THE DISCHARGE PLAN TO THE PT. PT IS OKAY TO CALL [facility] TO TRANSFER TO [facility].
--- NOTE | 2020-06-10 18:53 | NUR ---
patient stable awake, responsive and coherent 98.7 100/45 81 HEENT: His extraocular muscles are intact. NECK: Supple. His trachea is midline. CARDIOVASCULAR: Regular rate and rhythm. His strength is at least 4+/5 in bilateral upper extremities. PULMONARY: Clear to auscultation. ABDOMEN: Soft, nontender. NEUROLOGIC: awake and oreinted x 2 responsive fluent no longer dysarthric moves all 4 4+/5 and symmetrically reflexes 1/4 sensory grossly intact ASSESSMENT/PLAN: I am seeing this patientNoe for acute delirium, history of myasthenia gravis. continue Mestinon ivig if respiratory status begins to decline continue rivastigmien for pro-cholinergic effect
--- NOTE | 2020-06-10 19:01 | NUR ---
PT TRANSFERRED TO [facility]. TELEMETRY REMOVED. KEPT PICC LINE PER ANA BUSINESS OFFICE TECHNICIAN FOR FUTURE ABX USE. DISCHARGE INSTRUCTIONS GIVEN AND PATIENT VERBALIZED UNDERSTANDING. PT DENIED FURTHER NEEDS.
--- NOTE | 2020-06-10 22:00 | Consultation ---
DATE OF CONSULTATION: 06/10/2020 Cardiology Consultation REQUESTING PHYSICIAN: Pete Hankins MD. REASON FOR CONSULTATION: Arrhythmia. HISTORY OF PRESENT ILLNESS: This is a 79-year-old male with history of hypertension, hyperlipidemia, hypothyroidism, and history of myasthenia gravis, who presented to [facility] ER with complaints of shortness of breath as well as altered mental status. He was found to have an ESBL Klebsiella oxytoca urinary tract infection and treated with IV antibiotics. He was evaluated by Pulmonary, Neurology, and Urology while admitted. He was noted to have sinus bradycardia and episodes of supraventricular tachycardia, for which Cardiology is consulted. The patient denies any chest pain, shortness of breath, edema, orthopnea, or PND at this time. He does endorse occasional palpitations. REVIEW OF SYSTEMS: Negative except as per HPI. PAST MEDICAL HISTORY: 1. Hypertension. 2. Hyperlipidemia. 3. Hypothyroidism. 4. History of myasthenia gravis. 5. BPH. PAST SURGICAL HISTORY: Prior suprapubic catheter. ALLERGIES: PLEASE SEE EMR. MEDICATIONS: Please see medication list. SOCIAL HISTORY: No tobacco or alcohol. FAMILY HISTORY: Noncontributory to current illness. PHYSICAL EXAMINATION: VITAL SIGNS: Temperature 98.7 degrees, pulse 81, respiratory rate 20, blood pressure 182/72, oxygen saturation 96% on room air. GENERAL: Elderly man, in no acute distress. HEENT: Normocephalic, atraumatic. Pupils equal. No scleral icterus. NECK: Supple. No thyromegaly or cervical lymphadenopathy. No carotid bruits. LUNGS: Clear to auscultation bilaterally. No wheezes or crackles. CARDIOVASCULAR: Normal rate, regular rhythm. No murmur. Normal S1, S2. ABDOMEN: Soft, nontender. EXTREMITIES: No edema. LABORATORY DATA: WBC 7.62, hemoglobin 12.3, hematocrit 38.7, and platelets 211. Sodium 150, potassium 3.4, chloride 114, CO2 of 24, BUN 21, and creatinine 0.9. Telemetry was personally reviewed and interpreted revealing normal sinus rhythm with PVCs, episodes of sinus bradycardia as well as supraventricular tachycardia, which appear to be atrial tachycardia were observed. IMPRESSION: 1. Sinus bradycardia. 2. Supraventricular tachycardia appears to be atrial tachycardia on telemetry. 3. Extended-spectrum beta-lactamases Klebsiella oxytoca urinary tract infection. 4. Altered mental status. 5. Myasthenia gravis. 6. Hypertension. 7. Hyperlipidemia. 8. Hypothyroidism. RECOMMENDATIONS: Echocardiogram was performed earlier this admission, LVEF was preserved in a technically difficult study. TSH was noted to be elevated. Titration of levothyroxine per Primary Service. Monitor the patient on telemetry while admitted, given the patient's episode of sinus bradycardia as well as supraventricular tachycardia. Keep the patient off AV isaias blocking agents. At this time, we would recommend outpatient telemetry monitoring once he has recovered from his current illness. Discontinue clonidine. Continue lisinopril. We would recommend addition of amlodipine for blood pressure control. Thank you for this consult. We will continue to follow. Melissa Can MD ABS/MODL /[id number]
--- NOTE | 2020-06-11 00:56 | Progress Note ---
DATE: 06/10/2020 Psychiatric Progress Note SUBJECTIVE: The patient evaluated and events noted. The patient is in the room. He is doing well. He is calm and cooperative. He is oriented to self, place, and year. He denies any depression. Denies anxiety. Denies any hallucination. He denies any side effects to medication. No agitation reported. He is not getting any p.r.n. IM medication. ASSESSMENT: 1. Unspecified psychosis/delirium, improved. 2. History of depression, anxiety. PLAN: Continue with p.r.n. Seroquel, Ativan, and Haldol. Dictated by Dea Gonzalez PA-C Dimitri Mckeon MD QTV/HE /[id number]
--- NOTE | 2020-06-11 02:46 | Progress Note ---
DATE: 06/07/2020 Psychiatric Progress Note SUBJECTIVE: The patient evaluated, events noted. The patient is in the room. He is alert, awake, and oriented to situation. He is calm. He is doing much better. He is oriented to self, place, and year. He is still n.p.o. He is not combative. However, the patient is intermittently confused, thinks there is a mayor in the room. Not been getting p.r.n. IM medication. ASSESSMENT: 1. Unspecified psychosis/improved. 2. History of depression, anxiety. PLAN: 1. Continue p.r.n. Seroquel, Haldol, and Ativan. 2. Monitor for agitation. Dictated by Dea Gonzalez PA-C MD VEE MurilloV/HE /[id number]
--- NOTE | 2020-06-11 05:52 | Consultation ---
DATE OF CONSULTATION: 06/06/2020 Psychiatric Consultation REASON FOR CONSULTATION: To evaluate the patient's psychosis. HISTORY OF PRESENT ILLNESS: The patient is a 79-year-old male, admitted to hospital for mental status, chest pain, and UTI. Psychiatric consultation is called to evaluate the patient's psychosis. As per medical record, the patient has history of myasthenia gravis, BPH, hypothyroid, and hypertension. As per staff, the patient has been confused for about two weeks. His ex- recently due to COVID. He has history of depression and anxiety. Upon evaluation today, the patient is found to be in the room with a sitter. He is n.p.o. The patient is alert to self. Speech is very garbled. He does not know the year. He is restless, but denies any depression or anxiety. The patient is having hallucination of seeing his ex-. Nurse reports that As per staff, he was found confused. The patient takes Xanax at home. PAST PSYCHIATRIC HISTORY: The patient has history of anxiety and depression. Details unknown. FAMILY HISTORY: Unknown. SOCIAL HISTORY: The patient lives with . MENTAL STATUS EXAM: The patient is an elderly man. He is alert, awake, and oriented to self. He is confused and is anxious. Affect is blunt. Psychomotor state is restless. Denies any suicidal ideation. Denies any homicidal ideation. He is intermittently having visual hallucinations. Thought process, mood is somewhat concrete. Insight and judgment with memory appears to be grossly impaired. CURRENT MEDICATION: 1. Simvastatin. 2. Famotidine. 3. Potassium chloride. 4. Finasteride. 5. Atenolol. 6. Lisinopril. 7. Enoxaparin. 8. . 9. Hydralazine. 10. Acetaminophen. 11. Sodium chloride. 12. Ondansetron. 13. Furosemide. CURRENT LABORATORY DATA: WBC 10.19, RBC 4.14, hemoglobin 13, hematocrit 38.2, and platelets 210. Sodium 143, potassium 3.2, chloride 102, BUN 21 and creatinine 0.1, AST 18, ALT 15. ASSESSMENT: 1. Unspecified psychosis/delirium, multifactorial. 2. History of depression and anxiety. PLAN: 1. Add Seroquel p.r.n. 2. Add Ativan p.o. 3. Add Haldol p.r.n. IM. 4. Monitor for agitation. 5. Discussed with staff. Thank you for this consultation. Dictated by Dea Gonzalez PA-C Dimitri U MD ZOEY Mckeon/HE /[id number]
== END 2020-06-10 19:01 | DRG 871 ==
LOC: ER 02:55 → ERHOLD 06:40 → MED/SURG3 07:57 → MED/SURG2 06-09 13:22
PROVIDERS: ADMIT Internal Medicine; ATTEND Internal Medicine
PROC: 02HV33Z Insertion of Infusion Device into Superior Vena Cava, Percutaneous Approach (ICD-10-PCS; principal; 2020-06-07)
DX: A41.9 Sepsis, unspecified organism (principal); G93.41 Metabolic encephalopathy; N39.0 Urinary tract infection, site not specified; Z16.12 Extended spectrum beta lactamase (ESBL) resistance; R65.20 Severe sepsis without septic shock; G70.00 Myasthenia gravis without (acute) exacerbation; N40.0 Benign prostatic hyperplasia without lower urinary tract symptoms; E03.9 Hypothyroidism, unspecified; I10 Essential (primary) hypertension; E78.5 Hyperlipidemia, unspecified; Z11.59 Encounter for screening for other viral diseases; F32.9 Major depressive disorder, single episode, unspecified; F41.9 Anxiety disorder, unspecified; F29 Unspecified psychosis not due to a substance or known physiological condition; N28.89 Other specified disorders of kidney and ureter; Z74.09 Other reduced mobility; E87.6 Hypokalemia; B96.89 Other specified bacterial agents as the cause of diseases classified elsewhere; N42.31 Prostatic intraepithelial neoplasia
CPT/HCPCS: 36415; 36569; 70450; 71045; 71250; 71260; 74178; 74230; 76770; 80053; 80061; 81001; 82140; 82550; 82553; 82948; 83519; 83880; 84443; 84484; 85025; 85379; 85610; 85730; 86255; 87040; 87086; 87186; 93005; 93306; 97139; 99285; J0360; J1630; J1650; J1940; J1956; J2020; J2060; J3480; J7030; J7050; Q9967; U0002